=== PATIENT | male | born 1975 | race Caucasian/White ===

== ENCOUNTER 2017-09-14 19:50 | Emergency (ER) | payer MEDICAID ==
[~2017-09-14] VITALS: Ht 167.6 cm; Wt 97.0 kg
[~2017-09-14 19:50] MED LIST: ARIP30TA7 PO; BUSP5TAB3 PO; DIVA500T9 PO; LEVE500T PO
[2017-09-14] MEDS ORDERED: AMOX-580 PO (20:24)
[2017-09-14] MEDS ORDERED: METH4TAB3 PO (20:24)
[2017-09-14 20:38] VITALS: BP 140/86
== END 2017-09-14 20:35 | disposition home or self-care (01) ==
LOC: ER 19:50
DX: R22.0 Localized swelling, mass and lump, head (principal); F29 Unspecified psychosis not due to a substance or known physiological condition; Z87.891 Personal history of nicotine dependence
CPT/HCPCS: 99283

== ENCOUNTER 2018-04-28 12:05 | Inpatient (IN) | payer MEDICAID ==
[~2018-04-28] VITALS: Ht 162.6 cm; Wt 100.0 kg
[~2018-04-28 12:05] MED LIST changes: +METH4TAB3 PO
[2018-04-28] MEDS ORDERED: normal saline 1000ML IV soln IVB ONE ×2 (12:15→14:20)
[2018-04-28 12:52] LABS: BASOPHILS # (AUTO) 0.1 X10'3 (0-0.2); BASOPHILS % (AUTO) 0.8 % (0-1); EOSINOPHILS # (AUTO) 0.1 X10'3 (0-0.9); HEMATOCRIT 48.6 % (42.0-52.0); HEMOGLOBIN 16.5 g/dl (14.0-17.9); LYMPHOCYTES # (AUTO) 1.8 X10'3 (1.1-4.8); LYMPHOCYTES % (AUTO) 15.4 % (21-51); MEAN CORPUSCULAR HEMOGLOBIN 28.5 PG (27.0-31.0); MEAN CORPUSCULAR HGB CONC 34.1 % (33.0-36.5); MEAN CORPUSCULAR VOLUME 83.7 FL (78-98); MEAN PLATELET VOLUME 7.5 FL (7.4-10.4); MONOCYTES # (AUTO) 0.5 X10'3 (0-0.9); MONOCYTES % (AUTO) 4.2 % (2-12); NEUTROPHILS # (AUTO) 9.2 X10'3 (1.8-7.7); NEUTROPHILS % (AUTO) 78.6 % (42-75); PLATELET COUNT 272 X10'3 (140-440); RED BLOOD COUNT 5.81 X10'6 (4.70-6.10); RED CELL DISTRIBUTION WIDTH 14.5 % (11.5-14.5); WHITE BLOOD COUNT 11.8 X10'3 (4.5-11.0)
[2018-04-28 13:07] LABS: ALANINE AMINOTRANSFERASE 42 U/L (12-78); ALBUMIN 3.9 G/DL (3.4-5.0); ALKALINE PHOSPHATASE 53 IU/L (46-116); ANION GAP 13 (8-16); ASPARTATE AMINO TRANSFERASE 16 U/L (10-37); BILIRUBIN,TOTAL 0.3 MG/DL (0.1-1.0); BLOOD UREA NITROGEN 19 MG/DL (7-18); BUN/CREATININE RATIO 16.4 (5.4-32.0); CALCIUM 9.5 MG/DL (8.5-10.1); CHLORIDE 102 MMOL/L (99-107); CREATININE 1.16 MG/DL (0.60-1.10); GLUCOSE 119 MG/DL (70-104); POTASSIUM 4.5 MMOL/L (3.5-5.1); SODIUM 138 MMOL/L (135-145); TOTAL CARBON DIOXIDE 23.3 MMOL/L (24-32); TOTAL PROTEIN 7.9 G/DL (6.4-8.2); eGFR 69 ML/MIN
[2018-04-28 13:08] LABS: CREATINE KINASE 201 U/L (39-308)
[2018-04-28 13:09] LABS: VALPROATE 89 UG/ML (50-100)
[2018-04-28 13:40] LABS: CLARITY,URINE CLEAR (Clear); COLOR,URINE YELLOW (Yellow); GLUCOSE, URINE NEGATIVE (Neg); KETONES,URINE TRACE mg/dl (Neg); LEUKOCYTE ESTERASE ,URINE NEGATIVE (Neg); NITRITES, URINE NEGATIVE (Neg); OCCULT BLOOD,URINE SMALL (Neg); PROTEIN,URINE TRACE mg/dl (Neg); UROBILINOGEN,URINE 0.2 E.U/dL (0.2-1.0)
[2018-04-28 13:42] LABS: URINE AMPHETAMINE SCREEN NEGATIVE (Neg); URINE BARBITUATE SCREEN NEGATIVE (Neg); URINE BENZODIAZEPINES SCREEN NEGATIVE (Neg); URINE CANNABINOID SCREEN NEGATIVE (Neg); URINE COCAINE SCREEN NEGATIVE (Neg); URINE METHADONE SCREEN NEGATIVE (Neg); URINE OPIATE SCREEN NEGATIVE (Neg); URINE PHENCYCLIDINE SCREEN NEGATIVE (Neg)
[2018-04-28 13:45] LABS: UA COLLECTION TYPE STRAIGHT CATH
[2018-04-28 13:52] LABS: BACTERIA,URINE NONE SEEN /HPF (Neg); SQUAMOUS EPITHELIAL CELL,UR FEW /LPF (FEW); WBC,URINE 0-4 /HPF (0-4)
[2018-04-28 13:53] LABS: MUCUS STRANDS MODERATE /LPF (Neg)
[2018-04-28] MEDS ORDERED: LORazepam 2 mg/ml vial IV ONE (14:45)
[2018-04-28] MEDS ORDERED: acetaminophen 120MG suppository, rectal RC ONE (16:40)
[2018-04-28] MEDS ORDERED: acetaminophen 650mg rectal suppository RC ONE (16:55)
[2018-04-28] MEDS ORDERED: CefTRIAXone 2gm/D5W 50ml 50 ML IV ONE ×2 (16:55→17:30)
[2018-04-28] MEDS ORDERED: LIDOcaine 1% (10mg/ml) 2ml vial ONE (16:58)
[2018-04-28] MEDS ORDERED: levetiracetam inj 1,000 MG in normal saline 100ml IV soln 90 ML IV ONE (17:20)
[2018-04-28] MEDS ORDERED: gadopentetate dimeglumine 7.5 MMOL/15 ML syringe ONE (17:58)
[2018-04-28] MEDS ORDERED: acetaminophen 650mg rectal suppository RC PRN (18:10)
[2018-04-28] MEDS ORDERED: mag hydrox/Alum hydrox/simeth 30ml oral suspension PO PRN (18:10)
[2018-04-28] MEDS ORDERED: potassium Cl 20 mEq SR tablet PO PRN ×2 (18:10)
[2018-04-28] MEDS ORDERED: magnesium 1gm/100ml D5W IVPB 100 ML IV PRN (18:10)
[2018-04-28] MEDS ORDERED: magnesium hydroxide 30ml (MOM) UD suspension PO PRN (18:10)
[2018-04-28] MEDS ORDERED: potassium Cl 40MEQ/NS 500ml 500 ML IV PRN ×2 (18:10)
[2018-04-28] MEDS ORDERED: magnesium 4gm in 100ml NS 100 ML IV PRN (18:10)
[2018-04-28] MEDS ORDERED: magnesium Cl slow-release 64mg tablet PO PRN (18:10)
[2018-04-28] MEDS ORDERED: ondansetron/PF 4mg/2ml inj IV PRN (18:10)
[2018-04-28] MEDS: normal saline 1000ml 1,000 ML IV SCH (18:25)
[2018-04-28] MEDS ORDERED: FISH12002 PO (20:14)
[2018-04-28] MEDS ORDERED: LEVE500T PO ×2 (20:14)
[2018-04-28] MEDS ORDERED: ACET325C (20:14)
[2018-04-28] MEDS ORDERED: OLAN5TAB5 PO (20:14)
[2018-04-28] MEDS ORDERED: DIVA500T2 PO ×2 (20:14)
[2018-04-28] MEDS ORDERED: CARB15DR91 RIGHT EAR (20:14)
[2018-04-28 21:03] VITALS: BP 137/69
[2018-04-29 02:00] VITALS: BP 141/93
[2018-04-29] MEDS: normal saline 1000ml 1,000 ML IV SCH ×2 (03:32→20:14)
[2018-04-29 05:00] VITALS: BP 140/98
[2018-04-29 06:15] LABS: BASOPHILS % (AUTO) 0.4 % (0-1); EOSINOPHILS % (AUTO) 0.4 % (0-6); HEMATOCRIT 44.1 % (42.0-52.0); HEMOGLOBIN 15.3 g/dl (14.0-17.9); LYMPHOCYTES # (AUTO) 2.2 X10'3 (1.1-4.8); LYMPHOCYTES % (AUTO) 22.3 % (21-51); MEAN CORPUSCULAR HEMOGLOBIN 28.7 PG (27.0-31.0); MEAN CORPUSCULAR HGB CONC 34.8 % (33.0-36.5); MEAN CORPUSCULAR VOLUME 82.6 FL (78-98); MEAN PLATELET VOLUME 7.2 FL (7.4-10.4); MONOCYTES % (AUTO) 9.9 % (2-12); NEUTROPHILS # (AUTO) 6.6 X10'3 (1.8-7.7); PLATELET COUNT 231 X10'3 (140-440); RED BLOOD COUNT 5.34 X10'6 (4.70-6.10); RED CELL DISTRIBUTION WIDTH 14.5 % (11.5-14.5); WHITE BLOOD COUNT 9.9 X10'3 (4.5-11.0)
[2018-04-29 06:24] LABS: ALBUMIN 3.4 G/DL (3.4-5.0); ANION GAP 10 (8-16); BLOOD UREA NITROGEN 14 MG/DL (7-18); BUN/CREATININE RATIO 13.7 (5.4-32.0); CALCIUM 8.3 MG/DL (8.5-10.1); CHLORIDE 102 MMOL/L (99-107); CREATININE 1.02 MG/DL (0.60-1.10); GLUCOSE 108 MG/DL (70-104); MAGNESIUM 1.7 MG/DL (1.5-2.4); POTASSIUM 3.9 MMOL/L (3.5-5.1); SODIUM 137 MMOL/L (135-145); TOTAL CARBON DIOXIDE 25.2 MMOL/L (24-32); eGFR 80 ML/MIN
[2018-04-29] MEDS: K and/or MAG REPLACEMENT MC SCH (06:42)
[2018-04-29] MEDS: CefTRIAXone 2gm/D5W 50ml 50 ML IV SCH (09:22)
[2018-04-29] MEDS: enoxaparin 40mg/0.4ml syringe SQ SCH (09:23)
[2018-04-29 10:00] VITALS: BP 129/79
[2018-04-29] MEDS ORDERED: acetaminophen 325mg tablet PO PRN (10:25)
[2018-04-29] MEDS: azithromycin 250mg tablet PO SCH (10:32)
[2018-04-29 14:00] VITALS: BP 126/88
[2018-04-29 18:00] VITALS: BP 130/79
[2018-04-29] MEDS: ipratropium/albuterol 3ml nebule NEB SCH ×2 (19:10→23:00)
[2018-04-29] MEDS ORDERED: divalproex sodium 500mg tablet.DR PO SCH (21:00)
[2018-04-29] MEDS ORDERED: levetiracetam 250mg tablet PO SCH (21:00)
[2018-04-29] MEDS ORDERED: OLANZapine 5mg rapidly disint. tablet PO SCH (21:00)
[2018-04-29] MEDS ORDERED: carbamide peroxide 15ml bottle RIGHT EAR SCH (21:00)
[2018-04-29] MEDS ORDERED: LEVETIRACETAM 1000 MG PO SCH (21:00)
[2018-04-29 22:00] VITALS: BP 128/86
[2018-04-30] MEDS: ipratropium/albuterol 3ml nebule NEB SCH ×4 (04:39→15:19)
[2018-04-30 05:00] VITALS: BP 124/85
[2018-04-30 05:33] LABS: BASOPHILS # (AUTO) 0.2 X10'3 (0-0.2); BASOPHILS % (AUTO) 1.9 % (0-1); EOSINOPHILS # (AUTO) 0.1 X10'3 (0-0.9); EOSINOPHILS % (AUTO) 1.4 % (0-6); HEMATOCRIT 44.9 % (42.0-52.0); HEMOGLOBIN 15.5 g/dl (14.0-17.9); LYMPHOCYTES # (AUTO) 2.2 X10'3 (1.1-4.8); LYMPHOCYTES % (AUTO) 25.1 % (21-51); MEAN CORPUSCULAR HEMOGLOBIN 28.5 PG (27.0-31.0); MEAN CORPUSCULAR HGB CONC 34.5 % (33.0-36.5); MEAN CORPUSCULAR VOLUME 82.6 FL (78-98); MEAN PLATELET VOLUME 6.9 FL (7.4-10.4); MONOCYTES # (AUTO) 0.6 X10'3 (0-0.9); MONOCYTES % (AUTO) 6.8 % (2-12); NEUTROPHILS # (AUTO) 5.6 X10'3 (1.8-7.7); NEUTROPHILS % (AUTO) 64.8 % (42-75); PLATELET COUNT 216 X10'3 (140-440); RED BLOOD COUNT 5.44 X10'6 (4.70-6.10); RED CELL DISTRIBUTION WIDTH 14.3 % (11.5-14.5); WHITE BLOOD COUNT 8.6 X10'3 (4.5-11.0)
[2018-04-30 05:44] LABS: ALBUMIN 3.4 G/DL (3.4-5.0); ANION GAP 9 (8-16); BLOOD UREA NITROGEN 13 MG/DL (7-18); BUN/CREATININE RATIO 14.8 (5.4-32.0); CALCIUM 8.7 MG/DL (8.5-10.1); CHLORIDE 104 MMOL/L (99-107); CREATININE 0.88 MG/DL (0.60-1.10); GLUCOSE 113 MG/DL (70-104); MAGNESIUM 1.9 MG/DL (1.5-2.4); SODIUM 140 MMOL/L (135-145); TOTAL CARBON DIOXIDE 26.7 MMOL/L (24-32); eGFR > 90 ML/MIN
[2018-04-30] MEDS: K and/or MAG REPLACEMENT MC SCH (07:41)
[2018-04-30] MEDS ORDERED: levetiracetam 250mg tablet PO SCH (08:00)
[2018-04-30] MEDS ORDERED: non-formulary drug (Levetiracetam 500 MG) PO SCH (08:00)
[2018-04-30] MEDS ORDERED: divalproex sodium 500mg tablet.DR PO SCH (08:00)
[2018-04-30] MEDS ORDERED: non-formulary drug (Fish Oil/Borage/Flax/Om3,6,9#1 (Omega 3-6-9 1,200 mg Softgel) 1 CAP) PO SCH (08:00)
[2018-04-30] MEDS: CefTRIAXone 2gm/D5W 50ml 50 ML IV SCH (09:12)
[2018-04-30] MEDS: azithromycin 250mg tablet PO SCH (09:13)
[2018-04-30] MEDS: enoxaparin 40mg/0.4ml syringe SQ SCH (09:13)
[2018-04-30 10:00] VITALS: BP 137/84
[2018-04-30] MEDS ORDERED: [UNRECOGNIZED DRUG - REMARK] PO NR (10:00)
[2018-04-30] MEDS: normal saline 1000ml 1,000 ML IV SCH (10:09)
[2018-04-30] MEDS ORDERED: CEFD300C3 PO (13:37)
[2018-04-30] MEDS ORDERED: AZI25OT PO (13:37)
[2018-04-30] MEDS ORDERED: ALBU8.5H8 IH (13:37)
== END 2018-04-30 16:19 | disposition home health service (06) | DRG 137 ==
LOC: ER 12:05 → ED HOLD 18:09 → EDBEDREQ 19:03 → CMPBEDREQ 19:41 → ORTHO 4S 19:45
PROVIDERS: ADMIT Internal Medicine; ATTEND Family Medicine
DX: J69.0 Pneumonitis due to inhalation of food and vomit (principal); F41.9 Anxiety disorder, unspecified; F81.9 Developmental disorder of scholastic skills, unspecified; G40.901 Epilepsy, unspecified, not intractable, with status epilepticus; Z85.841 Personal history of malignant neoplasm of brain; Z79.899 Other long term (current) drug therapy
CPT/HCPCS: 36415; 70450; 70551; 71045; 71046; 80048; 80053; 80164; 80177; 80305; 81001; 82550; 83605; 83735; 85025; 87040; 87070; 92616; 93005; 94640; 94760; 96361; 96365; 96375; 97116; 97162; 97530; 99291; A4353; A9579; J0696; J1650; J1953; J2060; J3490; J7030

== ENCOUNTER 2018-07-03 08:12 | Inpatient (IN) | payer MEDICAID ==
[~2018-07-03] VITALS: Ht 177.8 cm; Wt 101.0 kg
[~2018-07-03 08:12] MED LIST changes: +ACET325C PO; +ALBU8.5H8 IH; -ARIP30TA7 PO; +AZI25OT PO; -BUSP5TAB3 PO; +CARB15DR91 RIGHT EAR; +DIVA500T2 PO; -DIVA500T9 PO; +FISH12002 PO; -METH4TAB3 PO; +OLAN5TAB5 PO
[2018-07-03] MEDS ORDERED: normal saline 1000ML IV soln IVB ONE ×2 (08:15→09:50)
[2018-07-03] MEDS ORDERED: levetiracetam inj 1,000 MG in normal saline 100ml IV soln 90 ML IV STA (08:17)
[2018-07-03] MEDS ORDERED: LORazepam 2 mg/ml vial IV ONE (08:25)
[2018-07-03] MEDS ORDERED: piperacillin/tazo 3.375gm/50ml 50 ML IV ONE (08:30)
[2018-07-03] MEDS ORDERED: acetaminophen 650mg rectal suppository RC ONE (08:55)
[2018-07-03 08:56] LABS: BASOPHILS # (AUTO) 0.1 X10'3 (0-0.2); BASOPHILS % (AUTO) 0.4 % (0-1); EOSINOPHILS % (AUTO) 0.2 % (0-6); HEMATOCRIT 48.3 % (42.0-52.0); HEMOGLOBIN 16.4 g/dl (14.0-17.9); LYMPHOCYTES # (AUTO) 1.2 X10'3 (1.1-4.8); LYMPHOCYTES % (AUTO) 6.6 % (21-51); MEAN CORPUSCULAR HEMOGLOBIN 28.3 PG (27.0-31.0); MEAN CORPUSCULAR VOLUME 83.2 FL (78-98); MEAN PLATELET VOLUME 7.6 FL (7.4-10.4); MONOCYTES # (AUTO) 0.7 X10'3 (0-0.9); MONOCYTES % (AUTO) 3.9 % (2-12); NEUTROPHILS # (AUTO) 16.6 X10'3 (1.8-7.7); NEUTROPHILS % (AUTO) 88.9 % (42-75); PLATELET COUNT 294 X10'3 (140-440); RED BLOOD COUNT 5.81 X10'6 (4.70-6.10); RED CELL DISTRIBUTION WIDTH 14.7 % (11.5-14.5); WHITE BLOOD COUNT 18.7 X10'3 (4.5-11.0)
[2018-07-03 09:20] LABS: INR 1.2 INR
[2018-07-03 09:38] LABS: CLARITY,URINE SLIGHTLY CLOUDY (Clear); COLOR,URINE AMBER (Yellow); GLUCOSE, URINE NEGATIVE (Neg); KETONES,URINE TRACE mg/dl (Neg); LEUKOCYTE ESTERASE ,URINE NEGATIVE (Neg); OCCULT BLOOD,URINE LARGE (Neg); PROTEIN,URINE 100 mg/dl (Neg); UROBILINOGEN,URINE 0.2 E.U/dL (0.2-1.0)
[2018-07-03 09:45] LABS: UA COLLECTION TYPE FOLEY CATH
[2018-07-03 09:46] LABS: ALANINE AMINOTRANSFERASE 82 U/L (12-78); ALBUMIN 3.7 G/DL (3.4-5.0); ALBUMIN/GLOBULIN RATIO 0.9 (1.1-1.5); ALKALINE PHOSPHATASE 62 IU/L (46-116); ANION GAP 24 (8-16); ASPARTATE AMINO TRANSFERASE 272 U/L (10-37); BILIRUBIN,TOTAL 0.4 MG/DL (0.1-1.0); BLOOD UREA NITROGEN 22 MG/DL (7-18); BUN/CREATININE RATIO 11.3 (5.4-32.0); CALCIUM 8.9 MG/DL (8.5-10.1); CHLORIDE 98 MMOL/L (99-107); CREATININE 1.95 MG/DL (0.60-1.10); GLUCOSE 179 MG/DL (70-104); MAGNESIUM 2.3 MG/DL (1.5-2.4); POTASSIUM 3.9 MMOL/L (3.5-5.1); SODIUM 137 MMOL/L (135-145); TOTAL PROTEIN 7.6 G/DL (6.4-8.2); VALPROATE 62 UG/ML (50-100); eGFR 38 ML/MIN
[2018-07-03 09:47] LABS: NITRITES, URINE NEGATIVE (Neg)
[2018-07-03 09:48] LABS: MUCUS STRANDS MODERATE /LPF (Neg)
[2018-07-03 09:50] LABS: COARSE GRANULAR CAST 0-3 /LPF (NEGATIVE)
[2018-07-03 09:51] LABS: AMORPHOUS URATES 1+; RBC,URINE 0-2 /HPF (0-2); SQUAMOUS EPITHELIAL CELL,UR FEW /LPF (FEW)
[2018-07-03 09:52] LABS: BACTERIA,URINE FEW /HPF (Neg)
[2018-07-03] MEDS ORDERED: normal saline 1000ml 1,000 ML IVB ONE (09:54)
[2018-07-03] MEDS ORDERED: ketorolac trometh. 30mg/ml inj. IV ONE (09:55)
[2018-07-03] MEDS ORDERED: potassium Cl 20 mEq SR tablet PO PRN ×2 (10:50)
[2018-07-03] MEDS ORDERED: ondansetron/PF 4mg/2ml inj IV PRN (10:50)
[2018-07-03] MEDS ORDERED: acetaminophen 325mg tablet PO PRN ×2 (10:50)
[2018-07-03] MEDS ORDERED: potassium Cl 40MEQ/NS 500ml 500 ML IV PRN ×2 (10:50)
[2018-07-03] MEDS ORDERED: mag hydrox/Alum hydrox/simeth 30ml oral suspension PO PRN (10:50)
[2018-07-03] MEDS ORDERED: docusate sod 100mg capsule PO PRN (10:50)
[2018-07-03] MEDS ORDERED: magnesium 1gm/100ml D5W IVPB 100 ML IV PRN (10:50)
[2018-07-03] MEDS ORDERED: magnesium 4gm in 100ml NS 100 ML IV PRN (10:50)
[2018-07-03] MEDS ORDERED: magnesium Cl slow-release 64mg tablet PO PRN (10:50)
[2018-07-03 10:56] LABS: ABG BASE EXCESS -6.8 mmol/L (-2.0-3.0); ABG HCO3 15.4 mmol/L (22.0-26.0); ABG OXYGEN SATURATION 97.7 % (95-98); ABG PH (T) 7.425 (7.350-7.450); ABG PO2 (T) 108.6 mmHg (83-108); ALLEN'S TEST Positive; FCOHb 0.4 % (0.5-1.5); FLOW 2 L/min; FMetHb 0.3 % (0.3-1.12); TOTAL HEMOGLOBIN 15.5 G/dl (14.0-18.0)
[2018-07-03] MEDS ORDERED: LORazepam 2 mg/ml vial IV PRN (11:00)
[2018-07-03] MEDS: acetaminophen 650mg rectal suppository RC PRN ×2 (11:42→17:25)
[2018-07-03] MEDS: normal saline 1000ml 1,000 ML IV SCH ×2 (11:44→22:23)
[2018-07-03] MEDS: CefTRIAXone 2gm/D5W 50ml 50 ML IV SCH (13:07)
[2018-07-03 13:35] VITALS: BP 150/93
[2018-07-03] MEDS: azithromycin/NS 500mg/250ml 250 ML IV SCH (14:39)
[2018-07-03 14:45] VITALS: BP_SYST 150; BP_SYST 157; BP_DIAS 89; BP_DIAS 93
[2018-07-03 16:20] VITALS: BP 140/83
[2018-07-03] MEDS ORDERED: CETI10CA PO (16:57)
[2018-07-03 17:00] VITALS: BP 139/87
[2018-07-03 22:00] VITALS: BP 125/80
[2018-07-04 02:00] VITALS: BP 113/66
[2018-07-04 06:00] VITALS: BP 132/66
[2018-07-04 06:44] LABS: BASOPHILS % (AUTO) 0.5 % (0-1); EOSINOPHILS # (AUTO) 0.1 X10'3 (0-0.9); EOSINOPHILS % (AUTO) 1.2 % (0-6); HEMATOCRIT 41.1 % (42.0-52.0); HEMOGLOBIN 13.9 g/dl (14.0-17.9); LYMPHOCYTES # (AUTO) 2.5 X10'3 (1.1-4.8); LYMPHOCYTES % (AUTO) 23.8 % (21-51); MEAN CORPUSCULAR HEMOGLOBIN 28.4 PG (27.0-31.0); MEAN CORPUSCULAR HGB CONC 33.9 % (33.0-36.5); MEAN CORPUSCULAR VOLUME 83.9 FL (78-98); MEAN PLATELET VOLUME 7.3 FL (7.4-10.4); MONOCYTES # (AUTO) 1.2 X10'3 (0-0.9); NEUTROPHILS # (AUTO) 6.7 X10'3 (1.8-7.7); NEUTROPHILS % (AUTO) 63.5 % (42-75); PLATELET COUNT 194 X10'3 (140-440); RED CELL DISTRIBUTION WIDTH 14.5 % (11.5-14.5); WHITE BLOOD COUNT 10.5 X10'3 (4.5-11.0)
[2018-07-04 07:04] LABS: ALANINE AMINOTRANSFERASE 205 U/L (12-78); ALBUMIN 2.6 G/DL (3.4-5.0); ALBUMIN/GLOBULIN RATIO 0.9 (1.1-1.5); ALKALINE PHOSPHATASE 37 IU/L (46-116); ANION GAP 9 (8-16); ASPARTATE AMINO TRANSFERASE 960 U/L (10-37); BILIRUBIN,TOTAL 0.4 MG/DL (0.1-1.0); BLOOD UREA NITROGEN 18 MG/DL (7-18); BUN/CREATININE RATIO 15.8 (5.4-32.0); CALCIUM 7.9 MG/DL (8.5-10.1); CHLORIDE 107 MMOL/L (99-107); CREATININE 1.14 MG/DL (0.60-1.10); GLUCOSE 95 MG/DL (70-104); MAGNESIUM 2.2 MG/DL (1.5-2.4); POTASSIUM 3.6 MMOL/L (3.5-5.1); SODIUM 140 MMOL/L (135-145); TOTAL CARBON DIOXIDE 24.3 MMOL/L (24-32); TOTAL PROTEIN 5.6 G/DL (6.4-8.2); eGFR 70 ML/MIN
[2018-07-04] MEDS ORDERED: albuterol 2.5 MG/3 ML nebule NEB PRN (07:40)
[2018-07-04] MEDS: normal saline 1000ml 1,000 ML IV SCH ×2 (07:54→17:37)
[2018-07-04] MEDS: CefTRIAXone 2gm/D5W 50ml 50 ML IV SCH (07:55)
[2018-07-04] MEDS: levetiracetam 250mg tablet PO SCH ×2 (07:56→20:24)
[2018-07-04] MEDS: enoxaparin 40mg/0.4ml syringe SQ SCH (07:57)
[2018-07-04] MEDS: K and/or MAG REPLACEMENT MC SCH (08:00)
[2018-07-04] MEDS ORDERED: CefTRIAXone 2gm/D5W 50ml 50 ML IV SCH (08:00)
[2018-07-04] MEDS ORDERED: azithromycin/NS 500mg/250ml 250 ML IV SCH (08:00)
[2018-07-04] MEDS: azithromycin/NS 500mg/250ml 250 ML IV SCH (09:33)
[2018-07-04] MEDS: OMEGA-3/DHA/EPA/FISH OIL 1 EACH CAPSULE.DR PO SCH (09:34)
[2018-07-04 10:00] VITALS: BP 133/66
[2018-07-04] MEDS: divalproex sodium 500mg tablet.DR PO SCH ×2 (10:00→20:23)
[2018-07-04 12:54] LABS: CREATINE KINASE > 100000 U/L (39-308)
[2018-07-04 17:00] VITALS: BP 133/80
[2018-07-04] MEDS: lactobacillus rhamnosus 10,000 MMU CELLS/CAPSULE PO SCH (20:23)
[2018-07-04] MEDS: OLANZapine 5mg rapidly disint. tablet PO SCH (20:24)
[2018-07-04] MEDS: carbamide peroxide 15ml bottle RIGHT EAR SCH (20:31)
[2018-07-04 22:00] VITALS: BP 130/80
[2018-07-05] MEDS: normal saline 1000ml 1,000 ML IV SCH ×3 (02:55→23:42)
[2018-07-05 06:00] VITALS: BP 130/70
[2018-07-05] MEDS: K and/or MAG REPLACEMENT MC SCH (07:09)
[2018-07-05 08:20] LABS: BASOPHILS % (AUTO) 0.5 % (0-1); EOSINOPHILS # (AUTO) 0.1 X10'3 (0-0.9); EOSINOPHILS % (AUTO) 1.8 % (0-6); HEMATOCRIT 40.8 % (42.0-52.0); HEMOGLOBIN 13.9 g/dl (14.0-17.9); LYMPHOCYTES # (AUTO) 1.7 X10'3 (1.1-4.8); LYMPHOCYTES % (AUTO) 21.5 % (21-51); MEAN CORPUSCULAR HEMOGLOBIN 28.4 PG (27.0-31.0); MEAN CORPUSCULAR VOLUME 83.5 FL (78-98); MEAN PLATELET VOLUME 7.7 FL (7.4-10.4); MONOCYTES # (AUTO) 0.6 X10'3 (0-0.9); MONOCYTES % (AUTO) 7.3 % (2-12); NEUTROPHILS # (AUTO) 5.5 X10'3 (1.8-7.7); NEUTROPHILS % (AUTO) 68.9 % (42-75); PLATELET COUNT 200 X10'3 (140-440); RED BLOOD COUNT 4.89 X10'6 (4.70-6.10); RED CELL DISTRIBUTION WIDTH 14.4 % (11.5-14.5)
[2018-07-05] MEDS: lactobacillus rhamnosus 10,000 MMU CELLS/CAPSULE PO SCH ×2 (08:25→20:28)
[2018-07-05] MEDS: azithromycin 250mg tablet PO SCH (08:25)
[2018-07-05] MEDS: levetiracetam 250mg tablet PO SCH ×2 (08:26→20:29)
[2018-07-05] MEDS: OMEGA-3/DHA/EPA/FISH OIL 1 EACH CAPSULE.DR PO SCH (08:26)
[2018-07-05] MEDS: divalproex sodium 500mg tablet.DR PO SCH ×2 (08:27→20:29)
[2018-07-05] MEDS: enoxaparin 40mg/0.4ml syringe SQ SCH (08:28)
[2018-07-05 08:47] LABS: ALANINE AMINOTRANSFERASE 289 U/L (12-78); ALBUMIN 2.5 G/DL (3.4-5.0); ALBUMIN/GLOBULIN RATIO 0.8 (1.1-1.5); ALKALINE PHOSPHATASE 38 IU/L (46-116); ANION GAP 9 (8-16); BILIRUBIN,TOTAL 0.3 MG/DL (0.1-1.0); BLOOD UREA NITROGEN 11 MG/DL (7-18); BUN/CREATININE RATIO 12.4 (5.4-32.0); CALCIUM 8.3 MG/DL (8.5-10.1); CHLORIDE 108 MMOL/L (99-107); CREATININE 0.89 MG/DL (0.60-1.10); GLUCOSE 79 MG/DL (70-104); MAGNESIUM 2.1 MG/DL (1.5-2.4); POTASSIUM 3.7 MMOL/L (3.5-5.1); SODIUM 144 MMOL/L (135-145); TOTAL PROTEIN 5.6 G/DL (6.4-8.2); eGFR > 90 ML/MIN
[2018-07-05 08:49] LABS: ASPARTATE AMINO TRANSFERASE 1055 U/L (10-37)
[2018-07-05 09:19] LABS: CREATINE KINASE > 100000 U/L (39-308)
[2018-07-05 10:13] VITALS: BP 140/84
[2018-07-05 18:00] VITALS: BP 152/97
[2018-07-05] MEDS: OLANZapine 5mg rapidly disint. tablet PO SCH (20:30)
[2018-07-05] MEDS: carbamide peroxide 15ml bottle RIGHT EAR SCH (20:31)
[2018-07-05 22:00] VITALS: BP 144/84
[2018-07-06 06:00] VITALS: BP 142/83
[2018-07-06 07:05] LABS: BASOPHILS % (AUTO) 0.3 % (0-1); EOSINOPHILS # (AUTO) 0.2 X10'3 (0-0.9); EOSINOPHILS % (AUTO) 1.9 % (0-6); HEMATOCRIT 41.7 % (42.0-52.0); HEMOGLOBIN 14.1 g/dl (14.0-17.9); LYMPHOCYTES # (AUTO) 1.9 X10'3 (1.1-4.8); LYMPHOCYTES % (AUTO) 24.5 % (21-51); MEAN CORPUSCULAR HEMOGLOBIN 28.5 PG (27.0-31.0); MEAN CORPUSCULAR HGB CONC 33.9 % (33.0-36.5); MEAN PLATELET VOLUME 7.6 FL (7.4-10.4); MONOCYTES # (AUTO) 0.5 X10'3 (0-0.9); MONOCYTES % (AUTO) 6.1 % (2-12); NEUTROPHILS # (AUTO) 5.2 X10'3 (1.8-7.7); NEUTROPHILS % (AUTO) 67.2 % (42-75); PLATELET COUNT 214 X10'3 (140-440); RED BLOOD COUNT 4.96 X10'6 (4.70-6.10); RED CELL DISTRIBUTION WIDTH 14.3 % (11.5-14.5); WHITE BLOOD COUNT 7.8 X10'3 (4.5-11.0)
[2018-07-06 07:36] LABS: ALANINE AMINOTRANSFERASE 267 U/L (12-78); ALBUMIN 2.3 G/DL (3.4-5.0); ALBUMIN/GLOBULIN RATIO 0.8 (1.1-1.5); ALKALINE PHOSPHATASE 45 IU/L (46-116); ANION GAP 7 (8-16); ASPARTATE AMINO TRANSFERASE 762 U/L (10-37); BILIRUBIN,TOTAL 0.3 MG/DL (0.1-1.0); BLOOD UREA NITROGEN 11 MG/DL (7-18); BUN/CREATININE RATIO 13.3 (5.4-32.0); CALCIUM 7.8 MG/DL (8.5-10.1); CHLORIDE 107 MMOL/L (99-107); CREATININE 0.83 MG/DL (0.60-1.10); GLUCOSE 86 MG/DL (70-104); MAGNESIUM 1.8 MG/DL (1.5-2.4); POTASSIUM 3.6 MMOL/L (3.5-5.1); SODIUM 143 MMOL/L (135-145); TOTAL CARBON DIOXIDE 28.9 MMOL/L (24-32); TOTAL PROTEIN 5.3 G/DL (6.4-8.2); eGFR > 90 ML/MIN
[2018-07-06 07:53] LABS: CREATINE KINASE 74145 U/L (39-308)
[2018-07-06] MEDS: K and/or MAG REPLACEMENT MC SCH (08:00)
[2018-07-06] MEDS: lactobacillus rhamnosus 10,000 MMU CELLS/CAPSULE PO SCH (08:16)
[2018-07-06] MEDS: OMEGA-3/DHA/EPA/FISH OIL 1 EACH CAPSULE.DR PO SCH (08:16)
[2018-07-06] MEDS: divalproex sodium 500mg tablet.DR PO SCH (08:16)
[2018-07-06] MEDS: levetiracetam 250mg tablet PO SCH (08:17)
[2018-07-06] MEDS: azithromycin 250mg tablet PO SCH (08:17)
[2018-07-06] MEDS: enoxaparin 40mg/0.4ml syringe SQ SCH (08:22)
[2018-07-06 10:00] VITALS: BP 136/91
[2018-07-06] MEDS: normal saline 1000ml 1,000 ML IV SCH (10:49)
== END 2018-07-06 14:20 | disposition home or self-care (01) | DRG 720 ==
LOC: ER 08:12 → ED HOLD 10:46 → ORTHO 4S 13:15
PROVIDERS: ADMIT Internal Medicine; ATTEND Internal Medicine
DX: A41.9 Sepsis, unspecified organism (principal); J69.0 Pneumonitis due to inhalation of food and vomit; G93.40 Encephalopathy, unspecified; N17.9 Acute kidney failure, unspecified; N18.3 Chronic kidney disease, stage 3 (moderate); E87.2 Acidosis; E86.0 Dehydration; G40.901 Epilepsy, unspecified, not intractable, with status epilepticus; M62.82 Rhabdomyolysis; F41.9 Anxiety disorder, unspecified; R74.0 Nonspecific elevation of levels of transaminase and lactic acid dehydrogenase [LDH]; Z79.899 Other long term (current) drug therapy
CPT/HCPCS: 36415; 36600; 71045; 80053; 80164; 81001; 82550; 82803; 83605; 83735; 84145; 85018; 85025; 85610; 87040; 87070; 87088; 92616; 93005; 96365; 96368; 96375; 97110; 97116; 97162; 97530; 99291; G0378; J0456; J0696; J1650; J1885; J1953; J2060; J2543; J7030

== ENCOUNTER 2019-01-13 18:56 | Emergency (ER) | payer MEDICAID ==
[~2019-01-13] VITALS: Ht 274.3 cm; Wt 94.0 kg
[~2019-01-13 18:56] MED LIST changes: -ACET325C PO; +ACET325C3 PO; -AZI25OT PO; +CETI10CA PO
--- NOTE | 2019-01-13 19:19 | NUR ---
[facility] AND INITIATED STROKE LEVEL 1
[2019-01-13 19:50] LABS: BASOPHILS # (AUTO) 0.1 X10'3 (0-0.2); BASOPHILS % (AUTO) 1.1 % (0-1); EOSINOPHILS # (AUTO) 0.1 X10'3 (0-0.9); EOSINOPHILS % (AUTO) 0.7 % (0-6); HEMATOCRIT 47.9 % (42.0-52.0); HEMOGLOBIN 16.8 g/dl (14.0-17.9); LYMPHOCYTES # (AUTO) 1.7 X10'3 (1.1-4.8); LYMPHOCYTES % (AUTO) 14.2 % (21-51); MEAN CORPUSCULAR HEMOGLOBIN 28.8 PG (27.0-31.0); MEAN CORPUSCULAR VOLUME 82.2 FL (78-98); MEAN PLATELET VOLUME 7.5 FL (7.4-10.4); MONOCYTES # (AUTO) 1.1 X10'3 (0-0.9); MONOCYTES % (AUTO) 9.7 % (2-12); NEUTROPHILS # (AUTO) 8.7 X10'3 (1.8-7.7); NEUTROPHILS % (AUTO) 74.3 % (42-75); PLATELET COUNT 261 X10'3 (140-440); RED BLOOD COUNT 5.83 X10'6 (4.70-6.10); RED CELL DISTRIBUTION WIDTH 14.5 % (11.5-14.5); WHITE BLOOD COUNT 11.7 X10'3 (4.5-11.0)
[2019-01-13 20:03] LABS: ALANINE AMINOTRANSFERASE 46 U/L (12-78); ALKALINE PHOSPHATASE 70 IU/L (46-116); ANION GAP 13 (8-16); ASPARTATE AMINO TRANSFERASE 29 U/L (10-37); BILIRUBIN,TOTAL 0.3 MG/DL (0.1-1.0); BLOOD UREA NITROGEN 15 MG/DL (7-18); CALCIUM 9.5 MG/DL (8.5-10.1); CHLORIDE 101 MMOL/L (99-107); GLUCOSE 121 MG/DL (70-104); POTASSIUM 4.2 MMOL/L (3.5-5.1); SODIUM 135 MMOL/L (135-145); TOTAL CARBON DIOXIDE 21.4 MMOL/L (24-32); TOTAL PROTEIN 8.1 G/DL (6.4-8.2); eGFR 82 ML/MIN
[2019-01-13 20:04] LABS: INR 1.1 INR
[2019-01-13] MEDS: levetiracetam inj 1,000 MG in normal saline 100ml IV soln 90 ML IV ONE (20:17)
[2019-01-13] MEDS: normal saline 1000ML IV soln IV ONE (20:17)
--- NOTE | 2019-01-13 20:43 | NUR ---
I DID NOTICE THAT HE DID DROOL WHEN NOT SWALLOWING AND WITH SWALLOWING, DOES NOT SEEMS TO MATTER. BUT NO SIGNS OF ASPIRATION NOTED. I INFROMED THE ER NURSE OF MY FINDINGS.
[2019-01-13] MEDS ORDERED: LEVE10002 PO (20:59)
[2019-01-13 21:10] LABS: CLARITY,URINE SLIGHTLY CLOUDY (Clear); COLOR,URINE YELLOW (Yellow); GLUCOSE, URINE NEGATIVE (Neg); KETONES,URINE TRACE mg/dl (Neg); LEUKOCYTE ESTERASE ,URINE NEGATIVE (Neg); NITRITES, URINE NEGATIVE (Neg); OCCULT BLOOD,URINE TRACE-LYSED (Neg); PROTEIN,URINE TRACE mg/dl (Neg)
[2019-01-13 21:16] LABS: UA COLLECTION TYPE STRAIGHT CATH
[2019-01-13 21:17] LABS: BACTERIA,URINE NONE SEEN /HPF (Neg); RBC,URINE 0-2 /HPF (0-2); WBC,URINE 0-4 /HPF (0-4)
[2019-01-13 21:18] LABS: MUCUS STRANDS MANY /LPF (Neg); SQUAMOUS EPITHELIAL CELL,UR NONE SEEN /LPF (FEW)
[2019-01-13 21:29] VITALS: BP 146/78
== END 2019-01-13 21:30 | disposition home or self-care (01) ==
LOC: ER 18:56
DX: C71.9 Malignant neoplasm of brain, unspecified (principal); Z98.890 Other specified postprocedural states; G40.909 Epilepsy, unspecified, not intractable, without status epilepticus; Z79.899 Other long term (current) drug therapy
CPT/HCPCS: 36415; 70450; 71045; 80053; 80164; 81001; 82948; 83605; 84145; 85025; 85610; 87040; 93005; 96365; 99284; J1953; J7030

== ENCOUNTER 2019-05-24 16:01 | Emergency (ER) | payer MEDICAID ==
[~2019-05-24] VITALS: Ht 180.3 cm; Wt 98.0 kg
[2019-05-24] MEDS ORDERED: TETanus/Pertussis (Acell)/Diphther VAC/PF (Tdap-Adult) 0.5ml syringe IM ONE (16:35)
[2019-05-24] MEDS ORDERED: CEPH250T PO (17:29)
[2019-05-24] MEDS ORDERED: cephalexin 500mg capsule PO ONE (17:30)
[2019-05-24 17:58] LABS: BASOPHILS % (AUTO) 0.3 % (0-1); EOSINOPHILS % (AUTO) 0.2 % (0-6); HEMATOCRIT 45.7 % (42.0-52.0); HEMOGLOBIN 15.9 g/dl (14.0-17.9); LYMPHOCYTES # (AUTO) 1.9 X10'3 (1.1-4.8); LYMPHOCYTES % (AUTO) 12.9 % (21-51); MEAN CORPUSCULAR HGB CONC 34.8 g/dL (33.0-36.5); MEAN CORPUSCULAR VOLUME 83.3 FL (78-98); MEAN PLATELET VOLUME 7.4 FL (7.4-10.4); MONOCYTES # (AUTO) 1.2 X10'3 (0-0.9); NEUTROPHILS # (AUTO) 11.5 X10'3 (1.8-7.7); NEUTROPHILS % (AUTO) 78.6 % (42-75); PLATELET COUNT 250 X10'3 (140-440); RED BLOOD COUNT 5.49 X10'6 (4.70-6.10); RED CELL DISTRIBUTION WIDTH 14.8 % (11.5-14.5); WHITE BLOOD COUNT 14.6 X10'3 (4.5-11.0)
[2019-05-24 18:22] VITALS: BP 141/94
[2019-05-24 18:24] LABS: ALANINE AMINOTRANSFERASE 48 U/L (12-78); ALBUMIN 3.7 G/DL (3.4-5.0); ALKALINE PHOSPHATASE 65 IU/L (46-116); BILIRUBIN,TOTAL 0.2 MG/DL (0.1-1.0); BLOOD UREA NITROGEN 19 MG/DL (7-18); BUN/CREATININE RATIO 17.8 (5.4-32.0); CALCIUM 8.9 MG/DL (8.5-10.1); CHLORIDE 105 MMOL/L (99-107); CREATININE 1.07 MG/DL (0.60-1.10); TOTAL CARBON DIOXIDE 25.2 MMOL/L (24-32); TOTAL PROTEIN 7.5 G/DL (6.4-8.2); VALPROATE 73 UG/ML (50-100); eGFR 75 ML/MIN
[2019-05-24 18:34] LABS: ANION GAP 16 (8-16); GLUCOSE 165 MG/DL (70-104); POTASSIUM 3.9 MMOL/L (3.5-5.1); SODIUM 146 MMOL/L (135-145)
[2019-05-24 18:38] LABS: ASPARTATE AMINO TRANSFERASE 32 U/L (10-37)
[2019-05-24] MEDS ORDERED: divalproex sodium 500mg tablet.DR PO SCH (18:40)
[2019-05-24] MEDS ORDERED: divalproex sodium 500mg tablet.DR PO ONE (18:40)
[2019-05-24] MEDS ORDERED: LORazepam 1 MG tablet PO ONE (18:40)
[2019-05-24 19:21] LABS: CLARITY,URINE CLEAR (Clear); COLOR,URINE YELLOW (Yellow); GLUCOSE, URINE 500 mg/dl (Neg); KETONES,URINE 15 mg/dl (Neg); LEUKOCYTE ESTERASE ,URINE NEGATIVE (Neg); NITRITES, URINE NEGATIVE (Neg); OCCULT BLOOD,URINE TRACE-INTACT (Neg); PH,URINE 5.5 (4.8-8.0); PROTEIN,URINE NEGATIVE (Neg); UROBILINOGEN,URINE 0.2 E.U/dL (0.2-1.0)
[2019-05-24 19:35] LABS: UA COLLECTION TYPE CLN CATCH MIDSTREAM
[2019-05-24 19:50] LABS: BACTERIA,URINE NONE SEEN /HPF (Neg); MUCUS STRANDS FEW /LPF (Neg); RBC,URINE 0-2 /HPF (0-2); SQUAMOUS EPITHELIAL CELL,UR FEW /LPF (FEW); WBC,URINE 0-4 /HPF (0-4)
== END 2019-05-24 20:04 | disposition home or self-care (01) ==
LOC: ER 16:01
DX: S01.81XA Laceration without foreign body of other part of head, initial encounter (principal); G40.89 Other seizures; F41.9 Anxiety disorder, unspecified; Z98.890 Other specified postprocedural states; Z79.899 Other long term (current) drug therapy; W18.39XA Other fall on same level, initial encounter; Y93.89 Activity, other specified; Y92.89 Other specified places as the place of occurrence of the external cause; Y99.8 Other external cause status
CPT/HCPCS: 36415; 70450; 80053; 80164; 81001; 85025; 90471; 93005; 99284

== ENCOUNTER 2021-05-07 16:25 | Emergency (ER) | payer MEDICAID ==
[~2021-05-07] VITALS: Ht 167.6 cm; Wt 100.0 kg
[~2021-05-07 16:25] MED LIST changes: +ALBU8.5H17 IH; -ALBU8.5H8 IH
[2021-05-07 18:20] LABS: BASOPHILS # (AUTO) 0.1 X10'3 (0-0.2); BASOPHILS % (AUTO) 1.1 % (0-1); EOSINOPHILS # (AUTO) 0.1 X10'3 (0-0.9); HEMOGLOBIN 16.2 g/dl (14.0-17.9); LYMPHOCYTES # (AUTO) 0.9 X10'3 (1.1-4.8); LYMPHOCYTES % (AUTO) 16.2 % (21-51); MEAN CORPUSCULAR HEMOGLOBIN 28.8 PG (27.0-31.0); MEAN CORPUSCULAR HGB CONC 34.5 g/dL (33.0-36.5); MEAN CORPUSCULAR VOLUME 83.5 FL (78-98); MEAN PLATELET VOLUME 7.3 FL (7.4-10.4); MONOCYTES # (AUTO) 0.8 X10'3 (0-0.9); MONOCYTES % (AUTO) 13.9 % (2-12); NEUTROPHILS # (AUTO) 3.9 X10'3 (1.8-7.7); NEUTROPHILS % (AUTO) 67.8 % (42-75); PLATELET COUNT 207 X10'3 (140-440); RED BLOOD COUNT 5.63 X10'6 (4.70-6.10); RED CELL DISTRIBUTION WIDTH 14.6 % (11.5-14.5); WHITE BLOOD COUNT 5.7 X10'3 (4.5-11.0)
[2021-05-07 18:22] LABS: ALANINE AMINOTRANSFERASE 45 U/L (12-78); ALKALINE PHOSPHATASE 72 IU/L (46-116); ANION GAP 14 (8-16); ASPARTATE AMINO TRANSFERASE 26 U/L (10-37); BILIRUBIN,TOTAL 0.3 MG/DL (0.1-1.0); BLOOD UREA NITROGEN 17 MG/DL (7-18); BUN/CREATININE RATIO 15.9 (5.4-32.0); CALCIUM 9.2 MG/DL (8.5-10.1); CHLORIDE 107 MMOL/L (99-107); CREATININE 1.07 MG/DL (0.60-1.10); GLUCOSE 123 MG/DL (70-104); POTASSIUM 4.1 MMOL/L (3.5-5.1); SODIUM 143 MMOL/L (135-145); TOTAL PROTEIN 7.9 G/DL (6.4-8.2); eGFR 75 ML/MIN
[2021-05-07 20:06] VITALS: BP 144/77
== END 2021-05-07 20:07 | disposition home or self-care (01) ==
LOC: ER 16:25
DX: U07.1 COVID-19 (principal); F41.9 Anxiety disorder, unspecified; Z98.890 Other specified postprocedural states; Z86.69 Personal history of other diseases of the nervous system and sense organs; Z79.899 Other long term (current) drug therapy
CPT/HCPCS: 36415; 71045; 80053; 83880; 84484; 85025; 87635; 93005; 99285; C9803

== ENCOUNTER 2022-07-03 13:52 | Emergency (ER) | payer MEDICAID ==
[~2022-07-03] VITALS: Ht 167.6 cm; Wt 77.0 kg
[2022-07-03] MEDS ORDERED: acetaminophen 325mg tablet PO STA (14:03)
[2022-07-03] MEDS ORDERED: normal saline 1000ML IV soln IV ONE (14:05)
[2022-07-03 14:39] LABS: BASOPHILS % (AUTO) 0.4 % (0-1); EOSINOPHILS % (AUTO) 0.3 % (0-6); HEMATOCRIT 48.4 % (42.0-52.0); HEMOGLOBIN 16.2 g/dl (14.0-17.9); LYMPHOCYTES # (AUTO) 1.6 X10'3 (1.1-4.8); LYMPHOCYTES % (AUTO) 14.6 % (21-51); MEAN CORPUSCULAR HEMOGLOBIN 28.6 PG (27.0-31.0); MEAN CORPUSCULAR HGB CONC 33.5 g/dL (33.0-36.5); MEAN CORPUSCULAR VOLUME 85.4 FL (78-98); MEAN PLATELET VOLUME 7.1 FL (7.4-10.4); MONOCYTES # (AUTO) 0.6 X10'3 (0-0.9); NEUTROPHILS # (AUTO) 8.5 X10'3 (1.8-7.7); NEUTROPHILS % (AUTO) 78.7 % (42-75); PLATELET COUNT 238 X10'3 (140-440); RED BLOOD COUNT 5.67 X10'6 (4.70-6.10); RED CELL DISTRIBUTION WIDTH 14.8 % (11.5-14.5); WHITE BLOOD COUNT 10.8 X10'3 (4.5-11.0)
[2022-07-03 14:52] LABS: ALANINE AMINOTRANSFERASE 35 U/L (12-78); ALBUMIN 4.1 G/DL (3.4-5.0); ALBUMIN/GLOBULIN RATIO 1.1 (1.1-1.5); ALKALINE PHOSPHATASE 59 IU/L (46-116); ANION GAP 6 (8-16); ASPARTATE AMINO TRANSFERASE 21 U/L (10-37); BILIRUBIN,TOTAL 0.2 MG/DL (0.1-1.0); BLOOD UREA NITROGEN 19 MG/DL (7-18); BUN/CREATININE RATIO 20.7 (5.4-32.0); CALCIUM 9.8 MG/DL (8.5-10.1); CHLORIDE 100 MMOL/L (99-107); CREATINE KINASE 131 U/L (39-308); CREATININE 0.92 MG/DL (0.60-1.10); GLUCOSE 109 MG/DL (70-104); MAGNESIUM 1.7 MG/DL (1.5-2.4); POTASSIUM 3.9 MMOL/L (3.5-5.1); SODIUM 138 MMOL/L (135-145); TOTAL CARBON DIOXIDE 31.8 MMOL/L (24-32); eGFR 88 ML/MIN
[2022-07-03] MEDS ORDERED: levetiracetam inj 1,000 MG in normal saline 100ml IV soln 90 ML IV STA (14:56)
[2022-07-03] MEDS ORDERED: levetiracetam inj 1,000 MG in normal saline 100ml IV soln 100 ML IV STA (15:00)
[2022-07-03 16:00] LABS: CLARITY,URINE CLOUDY (Clear); COLOR,URINE YELLOW (Yellow); GLUCOSE, URINE NEGATIVE (Neg); KETONES,URINE TRACE mg/dl (Neg); LEUKOCYTE ESTERASE ,URINE NEGATIVE (Neg); NITRITES, URINE NEGATIVE (Neg); OCCULT BLOOD,URINE NEGATIVE (Neg); PH,URINE 8.5 (4.8-8.0); PROTEIN,URINE NEGATIVE (Neg); UROBILINOGEN,URINE 0.2 E.U/dL (0.2-1.0)
[2022-07-03 16:06] LABS: UA COLLECTION TYPE OTHER
[2022-07-03 16:20] LABS: SQUAMOUS EPITHELIAL CELL,UR MODERATE /LPF (FEW)
[2022-07-03 16:21] LABS: AMORPHOUS PHOSPHATES 2+; BACTERIA,URINE FEW /HPF (Neg); RBC,URINE 0-2 /HPF (0-2); WBC,URINE 0-4 /HPF (0-4)
[2022-07-03 16:51] VITALS: BP 100/71
== END 2022-07-03 17:17 | disposition home or self-care (01) ==
LOC: ER 13:52
DX: R53.1 Weakness (principal); Z20.822 Contact with and (suspected) exposure to COVID-19; Z85.841 Personal history of malignant neoplasm of brain
CPT/HCPCS: 36415; 70450; 71045; 80053; 81001; 82550; 83605; 83735; 84145; 85025; 87040; 87811; 93005; 96361; 96365; 99285; J1953; J3490; J7030

== ENCOUNTER 2024-12-21 09:38 | Outpatient (CLI) | payer MEDICAID ==
[2024-12-21] MEDS ORDERED: GADOTERATE MEGLUMINE 7.5 MMOL/15 ML VIAL IV ONE (10:37)
== END 2024-12-21 23:59 | disposition home or self-care (01) ==
LOC: MRI 09:38
PROVIDERS: ATTEND Neuromusculoskeletal Medicine & OMM
DX: G93.89 Other specified disorders of brain (principal); D49.6 Neoplasm of unspecified behavior of brain
CPT/HCPCS: 70553; A9575

== ENCOUNTER 2025-04-08 16:04 | Inpatient (IN) | payer MEDICAID ==
[~2025-04-08] VITALS: Ht 175.3 cm; Wt 74.6 kg
--- NOTE | 2025-04-08 16:17 | ELECTROCARDIOGRAPH REPORT ---
[facility] Test Date: 2025-04-08 Test Time: 16:16:38 Pat Name: KRISTY ROBERTO Department: EMERGENCY ROOM [id number] Room: [place] [id number] Gender: M Risk Management Internship: JEANA : 1975 Requested By: PAWEL OSWALD Order Number: [id number] Reading MD: Dr. Joaquin Escamilla Measurements Intervals Independence Rate: 111 P: 0 CA: 0 QRS: -13 QRSD: 91 T: 45 QT: 318 QTc: 432 Interpretive Statements Atrial flutter Abnormal R-wave progression, early transition Borderline ST depression, anterior leads Electronically Signed On 04-09-2025 6:12:[address] Joaquin Escamilla Please click the below link to view image of tracing.
[2025-04-08 16:35] LABS: MEAN PLATELET VOLUME 7.3 FL (7.4-10.4)
[2025-04-08 16:36] LABS: RED CELL DISTRIBUTION WIDTH 14.6 % (11.5-14.5)
--- NOTE | 2025-04-08 16:46 | RADIOLOGY REPORT ---
CT brain without contrast CLINICAL INDICATION: aloc Comparison: 07/03/2022 FINDINGS: The study was performed in a multidetector scanner. This study performed taking axial image s from the skull base up to the vertex. Both brain and bone windows are photographed. Dose lowering techniques have been used including automated exposure control and adjustment of mA and /or KV according to patient size. There are large areas of encephalomalacia in the right frontal and right temporal lobes underlying th e craniotomy defect. No intraparenchymal hemorrhage or edema No hydrocephalus or midline shift IMPRESSION: 1. No change from old exam with encephalomalacia in the right frontal and temporal lobes Computed Tomographic Radiation Dosimetry Report: Total CTDI vol = 58 mGy Total DLP = 1016 mGy-cm All CT scans at this medical facility are performed using dose modulation techniques as appropriate to a performed exam including the following: Automated exposure control was utilized; adjustment of the MA and/or KvP according to patient size; and use of iterative reconstruction technique.
[2025-04-08 16:47] LABS: CREATININE 0.80 MG/DL (0.60-1.10); TOTAL CARBON DIOXIDE 21.4 MMOL/L (24-32); VALPROATE 78 UG/ML (50-100); eCRCL 112 ML/MIN; eGFR > 90 ML/MIN
[2025-04-08 16:48] LABS: ETHANOL < 10 MG/DL (<10)
[2025-04-08] MEDS: normal saline 1000ML IV soln IVB ONE (16:48)
--- NOTE | 2025-04-08 17:15 | Physician Documentation ---
History of Present Illness ~ Chief Complaint: ALOC Stated Complaint: ALTERED Time Seen by MD: 16:08 [facility] Source: patient, EMS, EMS notes reviewed Mode of Arrival: EMS Exam Limitations: clinical condition HPI Chief Complaint: Altered mental status Caveat: Altered mental status Independent Historians: Paramedics History of Present Illness: Patient is a 49-year-old man brought in by paramedics from a long-term or boarding home called [facility]. Medics stated that staff there did not provide any information regarding his baseline mental status. Patient is somnolent but arousable. Patient is unable to give any history and seems to be nonverbal. Suspect seizure disorder given his medication list being on Depakote and Keppra. Is unknown if he has been taking it. According to a caregiver who is now here present in the ER he is normally able to take care of his own activities of daily living and is able to speak and interact appropriately. Medical records review: Patient has a history of glioblastoma and Neurosurgery. Unknown the year of the Neurosurgery. Last ER visit was June of 2022 for generalized weakness and was discharged home. Review of systems: All systems were reviewed and are negative except for what is indicated in the history of present illness. Past Medical History: History of glioblastoma, seizure disorder Past Surgical History: Neurosurgery Social History: No tobacco use, no alcohol use, no drug use Medications: Reviewed as documented Nursing Notes Allergies: Reviewed as documented in Nursing Notes Medication Reconciliation Allergies: Coded Allergies: No Known Allergies (Unverified , 04/08/25) Scheduled Carbamide Peroxide (Debrox), 5 DROP RIGHT EAR HS, (Reported) Divalproex Sodium (Depakote), 500 MG PO DAILY, (Reported) Divalproex Sodium (Depakote), 1,000 MG PO HS, (Reported) Fish Oil/Borage/Flax/Om3,6,9#1 ([place] 3-6-9 1,200 mg Softgel), 1 CAP PO DAILY, (Reported) Levetiracetam (Levetiracetam), 500 MG PO DAILY, (Reported) Levetiracetam (Levetiracetam), 1,000 MG PO HS, (Reported) Olanzapine* (Zyprexa Zydis Odt*), 1 TAB PO HS, (Reported) Scheduled PRN Acetaminophen (Acetaminophen), 1 TAB-CAP PO Q4H PRN for pain, (Reported) Albuterol Sulfate (Proair Hfa), 2 PUFFS IH Q4H PRN for SOB or wheezing Cetirizine Hcl (Zyrtec), 10 MG PO DAILY PRN for allergies, (Reported) Past Medical History Past Medical History: Seizures, *CANCER*, Anxiety Past Surgical History: brain surgery, cancer surgery Alcohol Use: None Drug Use: none Lives with: Other Lives In: Assisted Care Occupation: disabled Review of Systems All Other Systems at this time: Reviewed and Negative Unable to obtain complete ROS: altered mental status Physical Exam Vital Signs: RN Vital Signs have been reviewed: Yes, Temperature: 98.8, Source: Oral, Heart Rate: 115, Respiratory Rate: 18, BP: 152/95, Pulse Oximetry: 92, Weight: 83.000 Oxygen Flow Rate: 0 Pulse Oximetry Reflects: adequate oxygenation Physical Exam General Appearance: Acutely and chronically ill-appearing HEENT: Normal OP, moist oral mucosa, PERRL, EOMI Neck: supple, normal ROM, trachea midline Pulmonary: No respiratory distress, CTA, BS equal Cardiac: RRR, no murmur, rub or gallop, GI: nondistended, soft, nontender, normal bowel sounds, no guarding, no rebound Extremities: normal ROM, no swelling, non-tender Skin: intact, dry, warm, no rashes Neuro: Awake, alert, seems to understand, shook my hand but is currently nonverbal and unable to answer my questions, tremors in the right upper extremity Psych: normal affect, good eye contact, no apparent hallucination, normal speech Progress Results/Orders Results/Orders Orders - PAWEL OSWALD MD Accucheck (04/08/25 16:12) Urinalysis, Cult If Indicated (04/08/25 16:12) Chest,Single View (04/08/25 16:12) Ct Head (04/08/25 16:12) Drug Screen, Urine (04/08/25 16:12) Monitor (04/08/25 16:12) Saline Lock (04/08/25 16:12) * Npo Until Passed Bedside Swa (04/08/25 16:12) Nursing Swallow Screen (04/08/25 16:12) Page Hospitalist (04/08/25 17:15) Fill Out Med Reconciliation (04/08/25 17:15) Dickens Prov.Neuro Consult (04/08/25 17:34) Completed Orders - PAWEL OSWALD MD Electrocardiogram (04/08/25 16:12) Cbc/Diff (04/08/25 16:12) Chest,Single View (04/08/25 16:12) Ct Head (04/08/25 16:12) Ethanol (04/08/25 16:12) Normal Saline 1000ml (0.9% Sodium Chlori (04/08/25 16:15) BMP (04/08/25 16:12) Valproate (04/08/25 16:12) Medications Received in ER Medications (Trade) Dose Ordered Sig/Aly Route PRN Reason Start Time Stop Time Status Last Admin Dose Admin (0.9% sodium chloride (NS) 1000ml IV soln) 500 ml ONCE ONCE IVB 04/08/25 16:15 04/08/25 16:16 DC 04/08/25 16:48 500 ML Vital Signs 04/08/25 04/08/25 16:13 18:11 Temp 98.8 98.5 Pulse 115 88 Resp 18 16 B/P (MAP) 152/95 133/79 (97) Pulse Ox 92 98 O2 Flow Rate 0 0 Laboratory Tests Test 04/08/25 16:22 04/08/25 16:25 Glucometer 123 H White Blood Count 13.0 H Red Blood Count 5.49 Hemoglobin 16.1 Hematocrit 46.6 Mean Corpuscular Volume 84.9 Mean Corpuscular Hemoglobin 29.4 Mean Corpuscular Hemoglobin Concent 34.6 Red Cell Distribution Width 14.6 H Platelet Count 223 Mean Platelet Volume 7.3 L Neutrophils (%) (Auto) 62.2 Lymphocytes (%) (Auto) 26.6 Monocytes (%) (Auto) 9.8 Eosinophils (%) (Auto) 0.2 Basophils (%) (Auto) 1.2 H Neutrophils # (Auto) 8.1 H Lymphocytes # (Auto) 3.5 Monocytes # (Auto) 1.3 H Eosinophils # (Auto) 0.0 Basophils # (Auto) 0.2 CBC Comment Sodium Level 137 Potassium Level 3.7 Chloride Level 103 Carbon Dioxide Level 21.4 L Anion Gap 13 Blood Urea Nitrogen 19 H Creatinine 0.80 Estimated GFR/1.73 m2 > 90 BUN/Creatinine Ratio 23.8 H Glucose Level 113 H Calcium Level 8.9 Albumin 3.7 Chemistry Comments Valproic Acid (Depakene) Level 78 Ethyl Alcohol Level < 10 Medical Decision Making Additional info obtained from: old records, ostomy care nurse Findings Differential diagnosis includes but is not limited to: Seizures, postictal, electrolyte abnormalities, dehydration, encephalopathy, metabolic encephalopathy, toxic encephalopathy, substance abuse, acute kidney injury, ischemic CVA, hemorrhagic CVA EKG independent interpretation: Performed at 4:16 p.m.. Sinus tachycardia, heart rate 111, leftward axis, nonspecific ST segments Chest x-ray, single view, indication: Altered mental status Independent interpretation: Lungs are clear, normal mediastinum, normal cardiac silhouette. No acute cardiopulmonary process Head CT without IV contrast, indication: Altered mental status Impression: 1. No change from old exam with encephalomalacia in the right frontal and temporal lobes Laboratory data independent interpretation: CBC: Leukocytosis of 13 BMP: Bicarb mildly low at 21.4, BUN mildly elevated at 19, serum glucose 113 Toxicology: Valproic acid level 78, blood alcohol <10 Urinalysis: Emergency department course/medical decision-making: Patient presents with altered mental status. An business systems administrator from the [facility] who knows him well states that his last known well time was some time around dinner time. He was acting normally and speaking normally and takes care of his own activities of daily living. There does not appear to be any changes on the CT imaging. Encephalomalacia present is unchanged. No evidence of ischemic or hemorrhagic stroke. Cause for his altered mental status that has been persistent now for close to 20+ hours is unknown. We will obtain neuro consult. Recommend admission and EEG. 6:10 p.m.: It was just discovered that the adviser to the [facility] stated that he had a fever earlier today. Supposed of the fever was 101. However the patient is afebrile here. Blood cultures will be added, urinalysis still pending. Patient will be given empiric Rocephin. Patient is and has remained afebrile and hemodynamically stable. Case discussed with the hospitalist Dr. Barahona for admission. Consultation/communications: Tele neuro consult pending 5:46 p.m.: Case discussed with the neurologist and he will evaluate. 6:05 p.m.: Case discussed with the neurologist. He is not concerned about status epilepticus. No current seizure activity is present. He recommends adm ission for MRI with and without contrast and an EEG. Departure Time of Disposition: 17:16 Disposition: 09 ADMITTED INPATIENT Admitted to Inpatient Unit: to hospitalist Admission Level of Care: Neuro with Tele Impression: Primary Impression: Altered mental status Qualified Codes: R40.0 - Somnolence Condition: Fair Education Educated: Patient Educated regarding: diagnosis, treatment Signature Scribe Signature: No scribe Attestation: No scribe PAWEL OSWALD MD Apr 08, 2025 17:15
--- NOTE | 2025-04-08 18:09 | [facility] CONSULT REPORT ---
[facility] Procedure Note [facility] Procedure Note Consult [facility] Note # Demographics Consult Type: General Neurology Patient Location: Emergency Room First Name: KRISTY Last Name: FELISA Date of : 1975 Age: 49 Gender: Male Facility: [facility] Time of Initial Page (): 04/08/2025 17:39 First Contact with Site (): 04/08/2025 17:40 # HPI Chief Complaint: - confusion History: 49-year-old male with a distant history of glioblastoma and seizure (on Keppra 1000 mg in AM and 1500 mg in PM, Depakote 500 mg in AM and 1000 mg PM) who presents with altered mental status that began last night after dinner. The patient, who [facility] and is capable of performing normal activities of daily living (ADLs), has become nonverbal and somnolent. He is awake and appears to understand what is going on, as evidenced by shaking the doctor's hand upon introduction, but quickly falls back to sleep. Facility staff at bedside stated that he had some problems yesterday around 11 PM - patient was not talking as much last night, which is different from his usual baseline. Last Known Normal: - yesterday evening - 11 PM # Scores Time of exam and NIHSS (): 04/08/2025 17:59 Level of Consciousness 1a: [2] = Not alert; requires strong or painful stim LOC Questions 1b: [2] = Answers neither correctly LOC Commands 1c: [0] = Performs both tasks correctly Best Gaze 2: [0] = Normal Visual 3: [0] = No visual loss Facial Palsy 4: [0] = Normal symmetrical movements Motor Arm Left 5a: [2] = Some effort against gravity Motor Arm Right 5b: [2] = Some effort against gravity Motor Leg Left 6a: [3] = No effort against gravity Motor Leg Right 6b: [3] = No effort against gravity Limb Ataxia 7: [0] = Absent Sensory 8: [0] = Normal Best Language 9: [1] = Sdsj-am-jjugghum aphasia Dysarthria 10: [2] = Severe dysarthria Extinction and Inattention 11: [0] = No abnormality NIHSS Total: 17 # Data Time Head CT personally read by me (): 04/08/2025 17:[address]: - no bleed - per radiologist read # Assessment Impression: - Seizure-like Activity # Plan Thrombolytic/Intervention: NOT IV Thrombolysis or IA Intervention candidate Thrombolytic Exclusion: > 4.5 hours Intraarterial Exclusion: - clinically not consistent with stroke Labs: - urine drug screen - Ammonia - B12 - comprehensive metabolic panel - CBC - TSH Imaging: (urgency: routine): - MRI Brain with AND without contrast Diagnostic Test: - EEG Medication: - continue with home dosing of Keppra and Depakote - no changes to be made yet pending EEG results and his clinical improvement Other: - If patient has any neurological deterioration please call me back immediately - seizure precautions - would not pursue stroke work-up if MRI is negative - I have discussed my recommendations with the referring provider Disposition: admit # Logistics Attestation of consult completion: The patient is located at: [facility]. Facility staff participated in the visit. I performed this telemedicine visit from my offsite office utilizing interactive 2 way audio and visual telecommunication technology at the request of the onsite emergency room provider. Total time spent in telemedicine encounter: I spent 15 minutes reviewing clinical data and/or imaging, obtaining history, examining the patient, comm unicating with the onsite care team, and in preparation of this report. # Demographics First Name: KRISTY Last Name: FELISA Facility: [facility] Neuro Consult Order placed for: Yes PEYMAN DINH MD Apr 08, 2025 18:09
[2025-04-08] MEDS ORDERED: magnesium Cl slow-release 64mg tablet PO PRN (18:25)
[2025-04-08] MEDS ORDERED: magnesium hydroxide 30ml (MOM) UD suspension PO PRN (18:25)
[2025-04-08] MEDS ORDERED: magnesium sulf-water 2g/50mL 50 ML IV PRN (18:25)
[2025-04-08] MEDS ORDERED: mag hydrox/Alum hydrox/simeth 30ml oral suspension PO PRN (18:25)
[2025-04-08] MEDS ORDERED: HYDROcodone/acetaminophen 5mg/325mg tablet PO PRN (18:25)
[2025-04-08] MEDS: normal saline 1000ml 1,000 ML IV SCH (18:25)
[2025-04-08] MEDS ORDERED: HYDROcodone/acetaminophen 10/325mg tab PO PRN (18:25)
[2025-04-08] MEDS ORDERED: acetaminophen 650mg rectal suppository RC PRN (18:25)
[2025-04-08] MEDS ORDERED: ondansetron/PF 4mg/2ml inj IV PRN (18:25)
[2025-04-08] MEDS ORDERED: potassium Cl 20 mEq SR tablet PO PRN (18:25)
[2025-04-08] MEDS ORDERED: magnesium sulf-water 4G/100mL 100 ML IV PRN (18:25)
--- NOTE | 2025-04-08 18:25 | HISTORY AND PHYSICAL ---
History & Physical Providers to CC Chief complaint, fever, cough, altered level of consciousness ~ History of Present Illness Reason for Admit\Complaint: As above History of Present Illness This is a 49-year-old male with a distant history of glioblastoma and seizure (on Keppra 1000 mg in AM and 1500 mg in PM, Depakote 500 mg in AM and 1000 mg PM) , history of hypertension, right side encephalomalacia, developmental delay, presented today to emergency department chief complaint altered level of consciousness associated with fever cough; who presents with altered mental status that began last night after dinner. The patient, who normally resides in a [facility] and is capable of performing normal activities of daily living (ADLs), has become nonverbal and somnolent. He is awake and appears to understand what is going on, as evidenced by shaking the doctor's hand upon introduction, but quickly falls back to sleep. Facility staff at bedside stated that he had some problems yesterday around 11 PM - patient was not talking as much last night, which is different from his usual baseline. In emergency department he was evaluated by physician, including by virtual neurologist, was diagnosed with altered level of consciousness rule out sepsis, started on IV antibiotics, decision was made to admit patient for further evaluation and treatment. No additional complaint or concern Allergies: Coded Allergies: No Known Allergies (Unverified , 04/08/25) Active prescriptions I reviewed reconciled Home Medications Home Medications Active Proair Hfa (Albuterol Sulfate) 1 Puff Inh 2 Puffs IH Q4H PRN Reported Zyrtec (Cetirizine Hcl) 10 Mg Capsule 10 Mg PO DAILY PRN Acetaminophen 325 Mg Capsule 1 Tab-Cap PO Q4H PRN Debrox (Carbamide Peroxide) 15 Ml Drops 5 Drop RIGHT EAR HS 2 Days [place] 3-6-9 1,200 mg Softgel (Fish Oil/Borage/Flax/Om3,6,9#1) 1,200 Mg Capsule 1 Cap PO DAILY 30 Days Depakote (Divalproex Sodium) 500 Mg Tablet. 1,000 Mg PO HS Depakote (Divalproex Sodium) 500 Mg Tablet. 500 Mg PO DAILY Levetiracetam 500 Mg Tablet 1,000 Mg PO HS Levetiracetam 500 Mg Tablet 500 Mg PO DAILY Zyprexa Silver Odt* (Olanzapine) 5 Mg Tab.rapdis 1 Tab PO HS DISSOLVE TABLET ON TONGUE. Past Medical History Past Medical History As in HPI Past Surgical History Surgical History Comment As in HPI Past Social History Social History Comment Lives in assisted living facility, deny illicit drug abuse tobacco alcohol use good social support Health Maintenance Health Maintenance Noncontributory ROS ROS Constitutional : no fever , no chills, or weakness. No diaphoresis. Allergic/Immunologic, no lymphadenopathy, no hives, no skin eruptions. Eyes, no recent visual changes, no eye pain, no photophobia. Ears, nose, mouth, throat, no sore throat, no nosebleed, no ear pain. Cardiovascular, no palpitations, skipped beats, chest pain, no peripheral edema, Respiratory, positive for dyspnea, orthopnea, cough, no hemoptysis, chest wall pain. Gastrointestinal, no abdominal pain, nausea, vomiting, constipation or diarrhea. : no dysuria, hematuria, pelvic pain, urethral d/c. Endocrine, no polyuria, polydipsia, recent unintentional weight gain or loss. Hematologic/Lymphatic, no petechiae, no enlarged lymph nodes, no bone pain. Integumentary, no rash, no skin lesions, Musculoskeletal, no muscle aches, or pain, no muscle cramps, no recent change in gait Neurological, positive for altered level consciousness, history of seizure, no dizziness, no headache, no syncope, no paresthesia. Psychiatric, no delusions, visual hallucinations, or hearing hallucinations. ROS - in rest is as in HPI. Exam Vitals: Vital Signs Date Time Temp Pulse Resp B/P (MAP) Pulse Ox O2 Delivery O2 Flow Rate FiO2 04/08/25 18:15 16 04/08/25 18:11 98.5 88 133/79 (97) 98 0 Vital signs, stable ,afebrile. Pulse Oximetry reflects adequate oxygenation. BMI is 27, weight 83 kg General: well developed, well nourished. Awake , alert, and oriented x4, resting comfortably in the bed, in no acute distress . Skin: Warm, dry, no pallor, no rash or petechiae. HEENT: Atraumatic, normocephalic, EOMI, anicteric sclera B; pink conjunctiva; PERRLA, normal oropharynx, moist oral and nasal mucosa. Tympanic membrane , nose , throat clear. Neck: Trachea midline. Supple, full range of motion, no JVD, bruit , hepatojugular reflex , lymphadenopathy or masses, or other lesions Cardiac: Regular rhythm, regular rate no murmurs, rubs, or gallops. Normal S1 and S2, no S3 noticed. PMI is normal. Respiratory: Equal breath sounds bilaterally, no tachypnea; lungs clear to auscultation bilaterally, no wheezing ,rub or rales, or crackles. Chest wall is symmetric and without deformity. No signs of trauma. Chest wall is nontender. No signs of respiratory distress. Resonance is normal upon percussion bilaterally. Gastrointestinal: Abdomen symmetric, non-distended, soft, non-tender, normal bowel sounds x4 quadrant, normoactive, no hepatosplenomegaly , no masses , no bruit, no flank pain bilaterally. No voluntary guarding, rebound, or rigidity. No tenderness to percussion. No pulsatile masses. Equal femoral pulses. No Carrillo's sign or McBurney point tenderness. Back; no CVA tenderness bilaterally, no deformities. Neck and back are without deformity as well. No tenderness noted on palpation of the spinous processes. Spinous processes are midline. Cervical, thoracic, and lumbar paraspinal muscles are not tender and are without spasm. : normal external genitalia, without lesions, swelling, masses or tenderness. Musculoskeletal: Extremities, normal range of motion, non-tender, muscle strength 5/5 x 4. Negative Homans signs bilaterally on lower extremity. Distal pulses full symmetrical, no clubbing, cyanosis , edema. Neurological: Speech is clear, alert, and oriented x 4. No motor or sensory deficit, deep tendon reflexes normal, cerebellar intact. Cranial nerves II-XII intact. Psych: Alert and or appropriate, normal affect. Vascular: Good distal pulses, which are equal x4; capillary refill less than 2 seconds. Lymphatic, no lymphadenopathy. Diagnostic Data Last Recorded Lab Results: 04/08/25 1625 04/08/25 1625 Advance Care Planning Advanced Care plannin - 30 Minutes Additional Plan Assessment A right-sided pneumonia, community-acquired Gram-positive Gram-negative mixed kassy Sepsis Chronic epilepsy in exacerbation History of developmental delay Right side encephalomalacia History of glioblastoma removal Metabolic encephalopathy Plan IV antibiotics, fluids keep patient well hydrated euvolemic SVN DuoNeb, incentive spirometry Additional lab work pending MRI, electroencephalography pending CT chest abdomen pelvis pending Seizure precautions PT evaluation And treatment I reconciled home medications DVT gastropathy prophylaxis addressed Sepsis Screening Reassessment Date: Apr 08, 2025 Date of Service: Apr 08, 2025 Billing Provider: TEZ VILLAGRAN MD Common Visit Codes: [id number] INP/OBS CARE (HIGH) Secondary Visit Codes: [id number] CARE PLAN ADDL 30MIN TEZ VILLAGRAN MD Apr 08, 2025 18:25
[2025-04-08 18:57] LABS: APTT 31 SECONDS (22-32); INR 1.2 INR
--- NOTE | 2025-04-08 19:19 | RADIOLOGY REPORT ---
EXAM: CT CT CHEST ABDOMEN PELVIS History: sepsis Comparison Study: None TECHNIQUE: Multidetector CT of the chest, abdomen, and pelvis was performed. Imaging was performed wi thout IV contrast. Axial, coronal, and sagittal multiplanar reformats were obtained from the axial da ta set by the technologist. Radiation Dose : CTDI vol 29.63 mGy, DLP 2718.8 mGy*cm. Findings: CT chest: Evaluation is degraded by respiratory motion. Lungs: Dependent atelectatic changes. Pleura: Unremarkable Heart/Great vessels: No cardiomegaly or pericardial effusion. Unremarkable appearance of the aorta. Mediastinum: Unremarkable. Soft tissues/Bones: Unremarkable CT abdomen/ pelvis: Liver: Unremarkable. Spleen: Unremarkable. Pancreas: Unremarkable. Gallbladder: Unremarkable. Adrenals: Unremarkable. Kidneys: No hydronephrosis. Nonspecific bilateral perinephric stranding. Pelvic Viscera: Unremarkable. Vasculature: Mild atherosclerotic aortoiliac calcifications. Retroperitoneum: Unremarkable Bowel: No bowel obstruction. The appendix is normal. Musculoskeletal: Unremarkable. Soft tissues: Tiny fat containing umbilical hernia. Impression: 1. No acute abnormality identified within the chest. 2. Nonspecific bilateral perinephric stranding, possibly senescent in etiology, however infectious/in flammatory process cannot be excluded in the appropriate clinical setting. 3. Additional findings as detailed.
[2025-04-08 19:21] LABS: PHOSPHORUS 2.7 MG/DL (2.3-4.5); PRO BRAIN NATRIURETIC PEPTIDE 392 PG/ML (0-125)
[2025-04-08] MEDS: CefTRIAXone 2gm/D5W 50ml BAG 50 ML IV ONE (19:34)
[2025-04-08] MEDS: ringers solution, lactated 1000ml IV soln IV ONE (19:37)
[2025-04-08] MEDS: docusate sod 100mg capsule PO SCH (20:00)
[2025-04-08] MEDS: K and/or MAG REPLACEMENT MC SCH (20:13)
[2025-04-08] MEDS ORDERED: BUPR100T13 PO (20:56)
[2025-04-08] MEDS ORDERED: ATOR20TA PO (20:56)
[2025-04-08] MEDS ORDERED: ARIP20TA63 PO (20:56)
[2025-04-08] MEDS ORDERED: CITA-178 PO (20:56)
[2025-04-08] MEDS: heparin, porcine 5000 units/ml vial SQ SCH (21:15)
[2025-04-08 22:41] LABS: LEUKOCYTE ESTERASE ,URINE NEGATIVE (Neg); NITRITES, URINE NEGATIVE (Neg); OCCULT BLOOD,URINE TRACE-INTACT (Neg)
[2025-04-08 22:42] LABS: UA COLLECTION TYPE NON-SPECIFIED
[2025-04-08 22:51] LABS: MUCUS STRANDS FEW /LPF (Neg); SQUAMOUS EPITHELIAL CELL,UR FEW /LPF (FEW)
[2025-04-08 22:58] LABS: URINE AMPHETAMINE SCREEN NEGATIVE (Neg); URINE BARBITUATE SCREEN NEGATIVE (Neg); URINE BENZODIAZEPINES SCREEN NEGATIVE (Neg); URINE CANNABINOID SCREEN NEGATIVE (Neg); URINE COCAINE SCREEN NEGATIVE (Neg); URINE METHADONE SCREEN NEGATIVE (Neg); URINE OPIATE SCREEN NEGATIVE (Neg); URINE PHENCYCLIDINE SCREEN NEGATIVE (Neg)
[2025-04-08 23:15] VITALS: PULSE 81; RESP 16; O2SAT 98
[2025-04-08 23:20] VITALS: BP 106/82; PULSE 83; RESP 16; TEMP 97.5; O2SAT 97
[2025-04-09] VITALS (11 sets, daily range): BP systolic 125–144; BP diastolic 80–110; PULSE 79–96; RESP 13–22; TEMP 97.1–100.8; O2SAT 92–99
[2025-04-09 06:53] LABS: MEAN PLATELET VOLUME 7.7 FL (7.4-10.4); RED CELL DISTRIBUTION WIDTH 14.4 % (11.5-14.5)
[2025-04-09 07:26] LABS: CREATININE 0.69 MG/DL (0.60-1.10); TOTAL CARBON DIOXIDE 24.9 MMOL/L (24-32); VALPROATE 60 UG/ML (50-100); eCRCL 130 ML/MIN; eGFR > 90 ML/MIN
[2025-04-09] MEDS: pantoprazole 40mg Tablet.DR PO SCH (07:30)
[2025-04-09] MEDS: divalproex sodium 500mg tablet.DR PO SCH (08:00)
[2025-04-09] MEDS: CefTRIAXone 2gm/D5W 50ml BAG 50 ML IV SCH (08:44)
[2025-04-09] MEDS: azithromycin/NS 500mg/250ml 250 ML IV SCH (08:44)
--- NOTE | 2025-04-09 12:01 | RADIOLOGY REPORT ---
[facility] EXAMINATION: MR MRI HEAD INDICATION: Altered level of consciousness, seizure. COMPARISON: CT CT HEAD on DOS: 04/08/25, MR MRI HEAD on DOS: 12/21/24 TECHNIQUE: Multiplanar, multisequence magnetic resonance imaging of the brain was performed without the use of i ntravenous contrast. FINDINGS: No evidence of acute infarct. No intracranial hemorrhage. No mass effect. There is encephalomalacia in the right frontal and temporal lobes similar to prior study. There is periventricular/deep white matter T2/FLAIR hyperintensity is nonspecific, but most commonly associated with chronic microvascular disease. There is ex vacuo dilatation of the right lateral ventricle. No hydrocephalus. The basal cisterns are patent. The sulci are not effaced. Flow voids in the major intracranial vessels are maintained. No abnormality of the orbits. Paranasal sinuses and mastoid air cells are clear. No abnormality of the visualized osseous structures and extracranial soft tissues. IMPRESSION: 1. No acute infarct, intracranial hemorrhage, mass effect, or hydrocephalus. 2. Stable encephalomalacia in the right frontal and temporal lobes.
[2025-04-09] MEDS: levetiracetam-NACL1000mg/100ml 100 ML IV SCH (12:43)
[2025-04-09] MEDS: acetaminophen 1,000mg/100ml IV 100 ML IV ONE (15:22)
--- NOTE | 2025-04-09 15:47 | [facility] CONSULT REPORT ---
[facility] Procedure Note [facility] Procedure Note Consult [place] [facility] Note # Demographics Type of EEG Read: - Routine EEG - video Patient Location: - Inpatient - STAT read requested First Name: Carlos Last Name: Gilbert Date of : 1975 Age: 49 Gender: Male Facility: [facility] Time of Initial Page (): 04/09/2025 08:00 First Contact with Site (): 04/09/2025 08:04 # EEG Interpretation Start Time of EEG Read (): 04/09/2025 08:25 Stop Time of EEG Read (): 04/09/2025 08:45 Duration: 0h 20m Technical Details: - The EEG electrodes were placed using the standard International 10-20 system of electrode placement. Video and an accessory EKG lead were used during the course of this study. - This study was recorded using the GCD Systeme EEG software Indication: - altered mental status # Description Photic Stimulation: NOT Performed Hyperventilation: NOT performed Phases Captured: - awake - drowsy Symmetry: symmetric Posterior Dominant Rhythm: The record is continuous, of normal amplitude and bilaterally symmetrical. There was no clear posterior dominant rhythm captured. There is a moderate amount of diffuse low amplitude 15-25 Hz beta activity and moderate amount of 4-7 Hz theta activity. Occasional <4 Hz delta activity is present. With drowsiness, there is attenuation of the background alpha activity and a shift to slower frequencies. Amplitude: normal Reactivity: yes Variability: yes Continuity: continuous EKG: artifactual # Abnormalities Epileptiform Abnormalities: - NOT present Focal Slowing: - yes Continuous right hemispheric focal slowing Seizure: - NOT present No push button events # Impression Impression: abnormal 1. Diffuse Slowing 2. Continuous right hemispheric focal slowing # Clinical Correlation Clinical Correlation: 1. Diffuse slowing is non-specific and may be seen in the setting of diffuse cerebral dysfunction; such as toxic/metabolic/infectious encephalopathy or heavily sedating medication use. 2. Focal slowing indicates cerebral dysfunction from a wide variety of potential etiologies in the region affected; it is a non-specific indicator of a structural or functional abnormality. # Demographics First Name: Carlos Last Name: Gilbert Facility: [facility] Neuro Consult Order placed for: Yes MAUREEN FLEMING MD Apr 09, 2025 15:47
--- NOTE | 2025-04-09 16:44 | PROGRESS NOTE ---
Daily Progress Note Providers to CC Had an episode of seizure today, resolved after IV Ativan ~ Central Line/PICC still needed: No Mason-Non Protocol Mason Indications Met/Not Met: F/C Indications Not Met Antibiotic Timeout Antibiotic Ordered?: Yes MRSA Education MRSA Education Provided to pt: Yes Subjective As above Objective Vital Signs Date Time Temp Pulse Resp B/P (MAP) Pulse Ox O2 Delivery O2 Flow Rate FiO2 04/09/25 11:00 97.5 94 20 125/85 (98) 96 Room Air 04/09/25 09:28 0 21 Vital signs, stable ,afebrile. Pulse Oximetry reflects adequate oxygenation. General: well developed, well nourished. Awake , alert, and oriented x4, resting comfortably in the bed, in no acute distress . Skin: Warm, dry, no pallor, no rash or petechiae. HEENT: Atraumatic, normocephalic, EOMI, anicteric sclera B; pink conjunctiva; PERRLA, normal oropharynx, moist oral and nasal mucosa. Tympanic membrane , nose , throat clear. Neck: Trachea midline. Supple, full range of motion, no JVD, bruit , hepatojugular reflex , lymphadenopathy or masses, or other lesions Cardiac: Regular rhythm, regular rate no murmurs, rubs, or gallops. Normal S1 and S2, no S3 noticed. PMI is normal. Respiratory: Equal breath sounds bilaterally, no tachypnea; lungs clear to auscultation bilaterally, no wheezing ,rub or rales, or crackles. Chest wall is symmetric and without deformity. No signs of trauma. Chest wall is nontender. No signs of respiratory distress. Resonance is normal upon percussion bilaterally. Gastrointestinal: Abdomen symmetric, non-distended, soft, non-tender, normal bowel sounds x4 quadrant, normoactive, no hepatosplenomegaly , no masses , no bruit, no flank pain bilaterally. No voluntary guarding, rebound, or rigidity. No tenderness to percussion. No pulsatile masses. Equal femoral pulses. No Carrillo's sign or McBurney point tenderness. Back; no CVA tenderness bilaterally, no deformities. Neck and back are without deformity as well. No tenderness noted on palpation of the spinous processes. Spinous processes are midline. Cervical, thoracic, and lumbar paraspinal muscles are not tender and are without spasm. : normal external genitalia, without lesions, swelling, masses or tenderness. Musculoskeletal: Extremities, normal range of motion, non-tender, muscle strength 5/5 x 4. Negative Homans signs bilaterally on lower extremity. Distal pulses full symmetrical, no clubbing, cyanosis , edema. Neurological: Speech is clear, alert, and oriented x 4. No motor or sensory deficit, deep tendon reflexes normal, cerebellar intact. Cranial nerves II-XII intact. Psych: Alert and or appropriate, normal affect. Vascular: Good distal pulses, which are equal x4; capillary refill less than 2 seconds. Lymphatic, no lymphadenopathy. Result Diagram: 04/09/25 0604 04/09/25 0604 Coagulation Studies Laboratory Tests Test 04/08/25 16:25 Prothrombin Time 11.9 SECONDS (9.0-12.0) INR International Normalized Ratio 1.2 INR Activated Partial Thromboplast Time 31 SECONDS (22-32) Coagulation Comments Problem\Assessment\Plan Assessment A right-sided pneumonia, community-acquired Gram-positive Gram-negative mixed kassy Sepsis Chronic epilepsy in exacerbation History of developmental delay Right side encephalomalacia History of glioblastoma removal Metabolic encephalopathy Plan IV antibiotics, fluids keep patient well hydrated euvolemic SVN DuoNeb, incentive spirometry Additional lab work pending MRI, electroencephalography pending CT chest abdomen pelvis pending Seizure precautions On Keppra B.i.d. PT evaluation And treatment I reconciled home medications DVT gastropathy prophylaxis addressed Sepsis Screening Reassessment Date: Apr 09, 2025 Date of Service: Apr 09, 2025 Billing Provider: TEZ VILLAGRAN MD Common Visit Codes: [id number] INP/OBS CARE(HIGH) TEZ VILLAGRAN MD Apr 09, 2025 16:43
--- NOTE | 2025-04-09 16:48 | CONSULTATION REPORT ---
History of Present Illness Providers to CC ~ Reason for Admit\Admit Dx: As above Refering MD: KARSON Allergies: Coded Allergies: No Known Allergies (Unverified , 04/08/25) Home Medications Home Medications Active Proair Hfa (Albuterol Sulfate) 1 Puff Inh 2 Puffs IH Q4H PRN Reported Celexa* (Citalopram Hydrobromide) 20 Mg Tablet 1 Tab PO DAILY 30 Days Aripiprazole 20 Mg Tablet 1 Tab PO HSPRN PRN 30 Days Lipitor (Atorvastatin Calcium) 20 Mg Tablet 1 Tab PO DAILY 30 Days Wellbutrin (Bupropion Hcl) 100 Mg Tablet 100 Mg PO TID Depakote (Divalproex Sodium) 500 Mg Tablet.dr 500 Mg PO DAILY Levetiracetam 500 Mg Tablet 1,000 Mg PO HS Levetiracetam 500 Mg Tablet 500 Mg PO DAILY Zyprexa Zydis Odt* (Olanzapine) 5 Mg Tab.rapdis 1 Tab PO HS DISSOLVE TABLET ON TONGUE. Physical Exam Last Vital Signs Recorded: Temperature: 100.8, Source: Oral, Heart Rate: 96, Respiratory Rate: 19, BP: 132/98, Pulse Oximetry: 94, Weight: 83.000 Results Diagram Lab Result Diagram: 04/09/25 0604 04/09/25 0604 Assessment/Plan Additional Plan [place] [facility] Note # Demographics Consult Type: Follow-Up Phone Call Patient Location: Inpatient First Name: Carlos Last Name: Gilbert Date of : 1975 Age: 49 Gender: Male Facility: [facility] Time of Initial Page (): 04/09/2025 16:17 First Contact with Site ( Time): 04/09/2025 16:18 Phone Only Consult: 49 y/o M seen by Dr. Morgan yesterday for altered mental status--nonverbal and somnolent. EEG with right hemisphere slowing. MRI brain with no acute changes. Stable encephalomalacia in the right frontal and temporal lobes. Discussed with Dr. Barahona--patient without clinical improvement. Okay to consider lumbar puncture given lack of clear etiology. If lumbar puncture also unrevealing would consider continuous EEG to exclude intermittent seizures. Phone Agreement: - phone consult deemed mutually sufficient for patient care # Plan Other: - If patient has any neurological deterioration please call me back immediately # Logistics Attestation of consult completion: The patient is located at: [facility]. I performed this phone consultation from my offsite office Total time spent in telemedicine encounter: I spent 10 minutes in reviewing clinical data and/or imaging, obtaining history, communicating with the onsite care team, and in preparation of this report. # Demographics First Name: Carlos Last Name: Gilbert Facility: [facility] TRELL BARRETO MD Apr 09, 2025 16:48
[2025-04-09] MEDS: OLANZapine 5mg rapidly disint. tablet PO SCH (20:35)
[2025-04-09] MEDS ORDERED: levetiracetam-NACL1000mg/100ml 100 ML IV SCH (21:00)
[2025-04-10] VITALS (12 sets, daily range): BP systolic 124–150; BP diastolic 71–96; PULSE 81–114; RESP 21–28; TEMP 97.4–98.4; O2SAT 90–98
[2025-04-10 06:45] LABS: CREATININE 0.91 MG/DL (0.60-1.10); TOTAL CARBON DIOXIDE 25.1 MMOL/L (24-32); eCRCL 98 ML/MIN; eGFR 89 ML/MIN
[2025-04-10 07:22] LABS: MEAN PLATELET VOLUME 7.7 FL (7.4-10.4); RED CELL DISTRIBUTION WIDTH 14.1 % (11.5-14.5)
--- NOTE | 2025-04-10 10:27 | RADIOLOGY REPORT ---
DI ABDOMEN,SINGLE VIEW(KUB) HISTORY: NG tube TECHNICAL DATA: 1 view of the abdomen. COMPARISON: None FINDINGS: Patchy gas is identified within nondistended small bowel. There are no dilated small bowel loops. Th ere is no abdominal mass effect. The renal and liver shadows are not enlarged. NG tube in the stomac h. IMPRESSION: NG tube in the stomach.
--- NOTE | 2025-04-10 10:28 | RADIOLOGY REPORT ---
DI CHEST,SINGLE VIEW, HISTORY: aloc COMPARISON: CHEST,SINGLE VIEW on DOS: 07/03/22, CHEST,SINGLE VIEW on DOS: 05/07/21 CHEST,SINGLE VIEW on DOS: 07/03/22, CHEST,SINGLE VIEW on DOS: 05/07/21 TECHNICAL DATA: 1 view of the chest was obtained. FINDINGS: Lines and tubes: None Cardiomediastinal silhouette: normal Pulmonary vasculature: normal Lung expansion: low Lung airspace: normal Lung interstitium: normal Pleura: normal Pneumothorax: no Bones: Unremarkable Other: no IMPRESSION: No acute intrathoracic abnormality.
[2025-04-10] MEDS ORDERED: LidoCAINE 2% Topical Jelly 11mL syringe (UROJET) TOP ONE (16:30)
[2025-04-10] MEDS: potassium Cl 20 mEq SR tablet PO PRN (16:35)
--- NOTE | 2025-04-10 16:35 | PROGRESS NOTE ---
Daily Progress Note Providers to CC Patient resting comfortably in bed, sedated ~ Central Line/PICC still needed: No Mason-Non Protocol Mason Indications Met/Not Met: F/C Indications Met Antibiotic Timeout Antibiotic Ordered?: Yes MRSA Education MRSA Education Provided to pt: Yes Subjective As above Objective Vital Signs Date Time Temp Pulse Resp B/P (MAP) Pulse Ox O2 Delivery O2 Flow Rate FiO2 04/10/25 11:00 98.2 109 25 134/84 (101) 90 Room Air 04/10/25 09:56 0 21 Vital signs, stable ,afebrile. Pulse Oximetry reflects adequate oxygenation, SaO2 90% on room air General: well developed, well nourished. Somnolent, Skin: Warm, dry, no pallor, no rash or petechiae. HEENT: Atraumatic, normocephalic, EOMI, anicteric sclera B; pink conjunctiva; PERRLA, normal oropharynx, moist oral and nasal mucosa. Tympanic membrane , nose , throat clear. Neck: Trachea midline. Supple, full range of motion, no JVD, bruit , hepatojugular reflex , lymphadenopathy or masses, or other lesions Cardiac: Regular rhythm, regular rate no murmurs, rubs, or gallops. Normal S1 and S2, no S3 noticed. PMI is normal. Respiratory: Equal breath sounds bilaterally, no tachypnea; lungs clear to auscultation bilaterally, no wheezing ,rub or rales, or crackles. Chest wall is symmetric and without deformity. No signs of trauma. Chest wall is nontender. No signs of respiratory distress. Resonance is normal upon percussion bilaterally. Gastrointestinal: Abdomen symmetric, non-distended, soft, non-tender, normal bowel sounds x4 quadrant, normoactive, no hepatosplenomegaly , no masses , no bruit, no flank pain bilaterally. No voluntary guarding, rebound, or rigidity. No tenderness to percussion. No pulsatile masses. Equal femoral pulses. No Carrillo's sign or McBurney point tenderness. Back; no CVA tenderness bilaterally, no deformities. Neck and back are without deformity as well. No tenderness noted on palpation of the spinous processes. Spinous processes are midline. Cervical, thoracic, and lumbar paraspinal muscles are not tender and are without spasm. : normal external genitalia, without lesions, swelling, masses or tenderness. Musculoskeletal: Extremities, normal range of motion, non-tender, muscle strength 5/5 x 4. Negative Homans signs bilaterally on lower extremity. Distal pulses full symmetrical, no clubbing, cyanosis , edema. Neurological: Somnolent Psych: Somnolent Vascular: Good distal pulses, which are equal x4; capillary refill less than 2 seconds. Lymphatic, no lymphadenopathy. Result Diagram: 04/10/25 0555 04/10/25 0555 Coagulation Studies Laboratory Tests Test 04/08/25 16:25 Prothrombin Time 11.9 SECONDS (9.0-12.0) INR International Normalized Ratio 1.2 INR Activated Partial Thromboplast Time 31 SECONDS (22-32) Coagulation Comments Problem\Assessment\Plan Assessment A right-sided pneumonia, community-acquired Gram-positive Gram-negative mixed kassy Sepsis Chronic epilepsy in exacerbation History of developmental delay Right side encephalomalacia History of glioblastoma removal Metabolic encephalopathy Patient failed swallowing test Plan Started on tube feeding IV antibiotics, fluids keep patient well hydrated euvolemic SVN DuoNeb, incentive spirometry Additional lab work pending MRI, electroencephalography completed CT chest abdomen pelvis completed Seizure precautions On Keppra B.i.d. PT evaluation And treatment I reconciled home medications DVT gastropathy prophylaxis addressed Sepsis Screening Reassessment Date: Apr 10, 2025 Date of Service: Apr 10, 2025 Billing Provider: TEZ VILLAGRAN MD Common Visit Codes: [id number] INP/OBS CARE(HIGH) TEZ VILLAGRAN MD Apr 10, 2025 16:35
[2025-04-10] MEDS ORDERED: diphenhydrAMINE 25 MG/10 ML UD oral solution CORPAK PRN (16:48)
[2025-04-10] MEDS ORDERED: mag hydrox/Alum hydrox/simeth 30ml oral suspension CORPAK PRN (16:51)
[2025-04-10] MEDS ORDERED: magnesium hydroxide 30ml (MOM) UD suspension CORPAK PRN (16:52)
[2025-04-10] MEDS ORDERED: POTASSIUM CHLORIDE 20 MEQ/15 ML oral solution CORPAK PRN ×2 (16:53→16:54)
[2025-04-10 17:27] LABS: ABG BASE EXCESS -3.1 mmol/L (-2.0-3.0); ABG HCO3 19.4 mmol/L (21.0-28.0); ABG OXYGEN SATURATION 90.8 % (94.0-98.0); ABG PCO2 (T) 28.2 mmHg (35.0-48.0); ABG PH (T) 7.456 (7.350-7.450); ABG PO2 (T) 56.7 mmHg (83.0-108.0); ALLEN'S TEST Modified; FCOHb 1.1 % (0.5-1.5); FHHb 9.1 % (0.0-5.0); FIO2 21.0 mmHg/%; FMetHb 0.3 % (0.0-1.5); FO2Hb 89.5 % (94.0-98.0); MODE ROOM AIR; PATIENT TEMPERATURE 36.8; TOTAL HEMOGLOBIN 14.6 G/dl (13.5-17.5)
--- NOTE | 2025-04-10 17:44 | RADIOLOGY REPORT ---
CHEST RADIOGRAPH Indication: sob Technique: Single frontal view of the chest was obtained COMPARISON: CT CT CHEST ABDOMEN PELVIS on DOS: 04/08/25, DI CHEST,SINGLE VIEW on DOS: 04/08/25, CHEST,S SAHRA VIEW on DOS: 07/03/22, CHEST,SINGLE VIEW on DOS: 05/07/21 FINDINGS: Lines and Tubes: None Lungs: Clear Pleura: No effusion. No pneumothorax. Cardiomediastinal contours: Unremarkable Bones: Unremarkable IMPRESSION: 1. No acute disease.
[2025-04-10] MEDS: ringers solution, lacted 1,000 ML IV ONE (20:00)
[2025-04-10] MEDS: LidoCAINE 2% Topical Jelly 11mL syringe (UROJET) TOP ONE (21:40)
[2025-04-10] MEDS: docusate sodium 100mg/10ml UD cup CORPAK SCH (22:08)
[2025-04-10] MEDS: OLANZapine 5mg rapidly disint. tablet CORPAK SCH (22:09)
--- NOTE | 2025-04-10 23:57 | RADIOLOGY REPORT ---
ABDOMEN, (KUB) ONE VIEW REASON FOR EXAM: Corpak Placement COMPARISON: DI ABDOMEN,SINGLE VIEW(KUB) on DOS: 04/10/25, CT CT CHEST ABDOMEN PELVIS on DOS: 04/08/25 TECHNIQUE: A single view of the abdomen is obtained. FINDINGS: The lung apices are excluded from view. There is new airspace disease at the periphery of the left lung base. There is a weighted feeding tube with the tip projecting over the gastric fundus. IMPRESSION: Weighted feeding tube tip projects over the gastric fundus. New airspace disease at the periphery of the left lung base. This may represent atelectasis although focal pneumonitis is not ruled out.
[2025-04-11] VITALS (11 sets, daily range): BP systolic 134–154; BP diastolic 81–92; PULSE 85–105; RESP 16–25; TEMP 97.5–101.7; O2SAT 94–99
[2025-04-11 06:28] LABS: MEAN PLATELET VOLUME 7.6 FL (7.4-10.4); RED CELL DISTRIBUTION WIDTH 14.3 % (11.5-14.5)
[2025-04-11 06:50] LABS: CREATININE 0.75 MG/DL (0.60-1.10); TOTAL CARBON DIOXIDE 24.5 MMOL/L (24-32); eCRCL 119 ML/MIN; eGFR > 90 ML/MIN
[2025-04-11] MEDS: lansoprazole 15mg solutab CORPAK SCH (07:57)
[2025-04-11] MEDS: potassium Cl 40MEQ/1/2NS 520ml 520 ML IV PRN (10:29)
--- NOTE | 2025-04-11 13:46 | PROGRESS NOTE ---
Daily Progress Note Providers to CC Patient had Episode of agitation today ~, on oxygen 6 L nasal cannula Central Line/PICC still needed: No Mason-Non Protocol Mason Indications Met/Not Met: F/C Indications Not Met Antibiotic Timeout Antibiotic Ordered?: Yes MRSA Education MRSA Education Provided to pt: Yes Subjective As above Objective Vital Signs Date Time Temp Pulse Resp B/P (MAP) Pulse Ox O2 Delivery O2 Flow Rate FiO2 04/11/25 10:43 97.5 90 20 135/81 (99) 99 Nasal Cannula 6.0 04/11/25 07:50 60 Vital signs, stable ,afebrile. Pulse Oximetry reflects adequate oxygenation, on 6 L oxygen nasal cannula General: well developed, well nourished. Somnolent Skin: Warm, dry, no pallor, no rash or petechiae. HEENT: Atraumatic, normocephalic, EOMI, anicteric sclera B; pink conjunctiva; PERRLA, normal oropharynx, moist oral and nasal mucosa. Tympanic membrane , nose , throat clear. Neck: Trachea midline. Supple, full range of motion, no JVD, bruit , hepatojugular reflex , lymphadenopathy or masses, or other lesions Cardiac: Regular rhythm, regular rate no murmurs, rubs, or gallops. Normal S1 and S2, no S3 noticed. PMI is normal. Respiratory: Equal breath sounds bilaterally, no tachypnea; lungs clear to auscultation bilaterally, no wheezing ,rub or rales, or crackles. Chest wall is symmetric and without deformity. No signs of trauma. Chest wall is nontender. No signs of respiratory distress. Resonance is normal upon percussion bilaterally. Gastrointestinal: Abdomen symmetric, non-distended, soft, non-tender, normal bowel sounds x4 quadrant, normoactive, no hepatosplenomegaly , no masses , no bruit, no flank pain bilaterally. No voluntary guarding, rebound, or rigidity. No tenderness to percussion. No pulsatile masses. Equal femoral pulses. No Carrillo's sign or McBurney point tenderness. Back; no CVA tenderness bilaterally, no deformities. Neck and back are without deformity as well. No tenderness noted on palpation of the spinous processes. Spinous processes are midline. Cervical, thoracic, and lumbar paraspinal muscles are not tender and are without spasm. : normal external genitalia, without lesions, swelling, masses or tenderness. Musculoskeletal: Extremities, normal range of motion, non-tender, muscle strength 5/5 x 4. Negative Homans signs bilaterally on lower extremity. Distal pulses full symmetrical, no clubbing, cyanosis , edema. Neurological: Somnolent Psych: Somnolent Vascular: Good distal pulses, which are equal x4; capillary refill less than 2 seconds. Lymphatic, no lymphadenopathy. Result Diagram: 04/11/25 0556 04/11/25 0556 Coagulation Studies Laboratory Tests Test 04/08/25 16:25 Prothrombin Time 11.9 SECONDS (9.0-12.0) INR International Normalized Ratio 1.2 INR Activated Partial Thromboplast Time 31 SECONDS (22-32) Coagulation Comments Problem\Assessment\Plan Assessment A right-sided pneumonia, community-acquired Gram-positive Gram-negative mixed kassy Sepsis Chronic epilepsy in exacerbation History of developmental delay Right side encephalomalacia History of glioblastoma removal Metabolic encephalopathy Patient failed swallowing test Plan Started on tube feeding IV antibiotics, fluids keep patient well hydrated euvolemic SVN DuoNeb, incentive spirometry Additional lab work pending MRI, electroencephalography completed CT chest abdomen pelvis completed Seizure precautions On Keppra B.i.d. PT evaluation And treatment I reconciled home medications DVT gastropathy prophylaxis addressed Sepsis Screening Reassessment Date: Apr 11, 2025 Date of Service: Apr 11, 2025 Billing Provider: TEZ VILLAGRAN MD Common Visit Codes: [id number] INP/OBS CARE(HIGH) TEZ VILLAGRAN MD Apr 11, 2025 13:46
[2025-04-12] VITALS (10 sets, daily range): BP systolic 124–140; BP diastolic 74–86; PULSE 88–107; RESP 16–25; TEMP 98.5–102.6; O2SAT 90–99
[2025-04-12] MEDS ORDERED: POTASSIUM CHLORIDE 20 MEQ/15 ML oral solution PO PRN (03:55)
[2025-04-12] MEDS: POTASSIUM CHLORIDE 20 MEQ/15 ML oral solution PO PRN (04:23)
[2025-04-12 06:33] LABS: CREATININE 0.78 MG/DL (0.60-1.10); TOTAL CARBON DIOXIDE 24.9 MMOL/L (24-32); eCRCL 115 ML/MIN; eGFR > 90 ML/MIN
[2025-04-12 06:42] LABS: MEAN PLATELET VOLUME 8.1 FL (7.4-10.4); RED CELL DISTRIBUTION WIDTH 14.5 % (11.5-14.5)
--- NOTE | 2025-04-12 15:35 | RADIOLOGY REPORT ---
CHEST RADIOGRAPH Indication: Ac respiratory failure Technique: Single frontal view of the chest was obtained Comparison: DI CHEST,SINGLE VIEW on DOS: 04/10/25, CT CT CHEST ABDOMEN PELVIS on DOS: 04/08/25, DI CHES T,SINGLE VIEW on DOS: 04/08/25, CHEST,SINGLE VIEW on DOS: 07/03/22, CHEST,SINGLE VIEW on DOS: 05/07/21 FINDINGS: Lines and Tubes: Weighted feeding tube tip in the stomach Lungs: No focal consolidation. Pleura: No effusion. No pneumothorax. Cardiomediastinal contours: Unremarkable Bones: No acute osseous abnormality. IMPRESSION: No acute cardiopulmonary disease.
--- NOTE | 2025-04-12 19:30 | PROGRESS NOTE ---
Daily Progress Note Providers to CC ~ Antibiotic Timeout Antibiotic Ordered?: Yes Subjective The patient remains nonverbal which is not at his baseline- is on 6 L of venturi mask today of oxygen which is per respiratory therapy equal to approximately 2 L nasal cannula- the patient remains febrile I have ordered repeat blood culture and sputum culture and per neurologist Dr. Amin a lumbar puncture with culture Objective Vital Signs Date Time Temp Pulse Resp B/P (MAP) Pulse Ox O2 Delivery O2 Flow Rate FiO2 04/12/25 15:00 100.4 89 22 130/76 (94) 90 Venturi Mask 6.0 04/12/25 13:39 28 Result Diagram: 04/12/25 0541 04/12/25 0541 Gen. No respiratory distress however the patient is nonverbal at this time in does open eyes to verbal commands Lungs clear to ascultation bilaterally, no wheezes rales or rhonchi appreciated Heart normal sinus rhythm no murmurs rubs or clicks noted Abdomen soft nontender bowel sounds are normoactive Lower extremities no clubbing cyanosis, nor edema appreciated bilaterally Coagulation Studies Laboratory Tests Test 04/08/25 16:25 Prothrombin Time 11.9 SECONDS (9.0-12.0) INR International Normalized Ratio 1.2 INR Activated Partial Thromboplast Time 31 SECONDS (22-32) Coagulation Comments Problem\Assessment\Plan Assessment A right-sided pneumonia, community-acquired Gram-positive Gram-negative mixed kassy Sepsis Chronic epilepsy in exacerbation History of developmental delay Right side encephalomalacia History of glioblastoma removal Metabolic encephalopathy Patient failed swallowing test Plan Started on tube feeding IV antibiotics, fluids keep patient well hydrated euvolemic SVN DuoNeb, incentive spirometry Additional lab work pending MRI, electroencephalography completed CT chest abdomen pelvis completed Seizure precautions On Keppra B.i.d. PT evaluation And treatment I reconciled home medications DVT gastropathy prophylaxis addressed 04/12 the patient remains nonverbal in his spiking fevers as per recommendations of Dr. Amin neurologist I have ordered a lumbar puncture with culture and sensitivity in his associated labs as well as well as a sputum culture and blood cultures. # acute respiratory failure- respiratory therapy is following remains on IV Rocephin and IV azithromycin # nutrition-Corpak tube feedings are continued Date of Service: Apr 12, 2025 Billing Provider: CRISTINA RAJPUT DO Common Visit Codes: [id number] INP/OBS CARE(HIGH) CRISTINA RAJPUT DO Apr 12, 2025 19:30
[2025-04-13] VITALS (15 sets, daily range): BP systolic 113–136; BP diastolic 74–83; PULSE 91–127; RESP 16–27; TEMP 97.7–102.7; O2SAT 90–99
[2025-04-13 06:17] LABS: MEAN PLATELET VOLUME 8.2 FL (7.4-10.4); RED CELL DISTRIBUTION WIDTH 14.1 % (11.5-14.5)
[2025-04-13 06:21] LABS: CREATININE 0.77 MG/DL (0.60-1.10); TOTAL CARBON DIOXIDE 25.6 MMOL/L (24-32); eCRCL 116 ML/MIN; eGFR > 90 ML/MIN
[2025-04-13] MEDS: ipratropium/albuterol 3ml nebule NEB PRN (10:40)
[2025-04-13] MEDS: VANCOMYCIN 2GM/400ML H20 (PEG) 400 ML IV ONE (11:01)
--- NOTE | 2025-04-13 12:27 | PROGRESS NOTE ---
Daily Progress Note Providers to CC ~ Antibiotic Timeout Antibiotic Ordered?: Yes Subjective No acute events overnight. Patient examined at bedside. Patient is nonverbal at baseline. Tele sinus tach in 100s. afebrile today, labs notable for downtrending serum Na at 128. Lasix started, continued on IV NS. Patient had seizure that lasted approximately 10 seconds. Given 4mg IV Ativan and continued on IV Keppra. Objective Vital Signs Date Time Temp Pulse Resp B/P (MAP) Pulse Ox O2 Delivery O2 Flow Rate FiO2 04/13/25 10:56 127 22 Nasal Cannula 3.0 04/13/25 10:43 99 40 04/13/25 02:00 98.5 136/77 (96) Result Diagram: 04/13/25 0539 04/13/25 0539 Physical Exam General: Generalized weakness, nonverbal, NAD HEENT: Normocephalic, PERRLA Neck: Supple, trachea midline, no JVD Chest: Clear to auscultation bilaterally Cardiovascular: RRR, S1&S2 GI: Soft and nontender Extremities: No cyanosis/clubbing/or edema CHUTE WORKER: No focal deficits Musculoskeletal: No paraspinal muscle tenderness, no muscle spasm Skin: Warm and intact Coagulation Studies Laboratory Tests Test 04/08/25 16:25 Prothrombin Time 11.9 SECONDS (9.0-12.0) INR International Normalized Ratio 1.2 INR Activated Partial Thromboplast Time 31 SECONDS (22-32) Coagulation Comments Problem\Assessment\Plan Assessment & Plan Aspiration pneumonia- POA Sepsis 2/2 above Acute hypoxic respiratory failure 2/2 PNA- not POA Hx epilepsy Developmental delay Right side encephalomalacia History of glioblastoma removal Metabolic encephalopathy -continue tube feeding, abx, antiepileptic -04/13: seizure that lasted approximately 10 seconds. Given 4mg IV Ativan and continued on IV Keppra. Serum Na 128, start Lasix, continued on IV NS. Pending lumbar puncture analysis. Tele sinus in 100s. -follow osmolality studies Date of Service: Apr 13, 2025 Billing Provider: TAMMY HANSON Common Visit Codes: [id number] INP/OBS CARE(HIGH) TAMMY HANSON Apr 13, 2025 12:27
[2025-04-13 17:19] LABS: LEUKOCYTE ESTERASE ,URINE NEGATIVE (Neg); NITRITES, URINE NEGATIVE (Neg); OCCULT BLOOD,URINE TRACE-INTACT (Neg)
[2025-04-13] MEDS: vancomycin/NS 1 GM ADD-VANTAGE 250 ML X 1 DOSE IV SCH (17:22)
[2025-04-13 17:24] LABS: OSMOLALITY UA 664 MOSM/K (50-1400)
[2025-04-13 17:26] LABS: UA COLLECTION TYPE NON-SPECIFIED
[2025-04-13 17:27] LABS: MUCUS STRANDS NONE SEEN /LPF (Neg); SQUAMOUS EPITHELIAL CELL,UR NONE SEEN /LPF (FEW)
[2025-04-14] VITALS (15 sets, daily range): BP systolic 99–128; BP diastolic 68–85; PULSE 86–117; RESP 16–29; TEMP 97–101.4; O2SAT 90–97
[2025-04-14 07:25] LABS: MEAN PLATELET VOLUME 7.7 FL (7.4-10.4); RED CELL DISTRIBUTION WIDTH 14.1 % (11.5-14.5)
[2025-04-14 07:52] LABS: CREATININE 0.91 MG/DL (0.60-1.10); TOTAL CARBON DIOXIDE 21.4 MMOL/L (24-32); eCRCL 98 ML/MIN; eGFR 89 ML/MIN
--- NOTE | 2025-04-14 07:55 | [facility] NEURO CONSULT REPORT ---
[facility] Procedure Note [facility] Procedure Note Consult [facility] Note # Demographics Consult Type: Follow-Up Phone Call Patient Location: Inpatient First Name: Gilbert Last Name: Carlos Date of : 1975 Age: 49 Gender: Male Facility: [facility] Time of Initial Page (): 04/14/2025 07:29 First Contact with Site ( Time): 04/14/2025 07:29 # HPI History: Here with seizures. Yeteday Neuro recommended depakote and keppra. Three additional seizures since yesterday Has not received depakote 2/2 supply or admin route. Has fever and no known source. No meningismus. On CTX and vanc. An LP is planned. # Data Head CT: - no bleed - per radiologist read # Assessment Impression: - Seizure # Plan Diagnostic Test: - Lumbar puncture: cell count, protein, glucose, gram stain, and culture LP was planned. if fever of unknown source. Add acyclovir for empiric hsv coverage for now. Medication: keppra 1g bid add lacosamide 200mg iv x 1 then 100mg iv bid Other: - If patient has any neurological deterioration please call me back immediately - I have discussed my recommendations with the referring provider - seizure precautions Additional Recommendations: if additional seizure without return to baseline then continuous eeg is needed. # Logistics Attestation of consult completion: The patient is located at: [facility]. I performed this phone consultation from my offsite office Total time spent in telemedicine encounter: I spent 5 minutes in reviewing clinical data and/or imaging, obtaining history, communicating with the onsite care team, and in preparation of this report. # Demographics First Name: Gilbert Last Name: Carlos Facility: [facility] Electronically signed at 04/14/2025 07:55 () by Edin Olson MD Neuro Consult Order placed for: Yes LINA OLSON MD Apr 14, 2025 07:55
[2025-04-14] MEDS ORDERED: valproate sod inj 500 MG in normal saline 50ml IV soln 50 ML IV SCH (08:00)
[2025-04-14] MEDS: VANCOMYCIN LEVEL IV ONE (08:30)
[2025-04-14] MEDS: LACOSAMIDE 200mg/20ml inj. 200 MG in normal saline 100ml IV soln 100 ML IV ONE (10:20)
--- NOTE | 2025-04-14 10:36 | RADIOLOGY REPORT ---
CHEST RADIOGRAPH Indication:Possible Pneumonia Technique: Single frontal view of the chest was obtained Comparison: DI CHEST,SINGLE VIEW on DOS: 04/12/25 FINDINGS: Lines and Tubes: Weighted feeding tube tip in the stomach Lungs: No focal consolidation. Pleura: No effusion. No pneumothorax. Cardiomediastinal contours: Unremarkable Bones: No acute osseous abnormality. IMPRESSION: No acute cardiopulmonary disease.
[2025-04-14] MEDS: NORMAL SALINE IV SCH (10:57)
[2025-04-14] MEDS: ACYCLOVIR IV SCH (10:57)
--- NOTE | 2025-04-14 11:57 | PROGRESS NOTE ---
Daily Progress Note Providers to CC ~ Antibiotic Timeout Antibiotic Ordered?: Yes Subjective No acute events overnight. Patient examined at bedside. Patient is nonverbal at baseline. Tele sinus tach in 100s. fever today, labs unremarkable. Patient had episodes of grand mal seizure in am. Given 4mg IV Ativan and continued on IV Keppra. Case discussed with neurologist Dr. Butterfield with recommendation for lacosamide and acyclovir as an add-on therapy. CSF result pending. Objective Vital Signs Date Time Temp Pulse Resp B/P (MAP) Pulse Ox O2 Delivery O2 Flow Rate FiO2 04/14/25 08:12 107 22 Nasal Cannula 2.0 04/14/25 07:30 96 32 04/14/25 02:00 101.4 128/80 (96) Result Diagram: 04/14/2570304/14/25 07 Physical Exam General: Generalized weakness, nonverbal, NAD HEENT: Normocephalic, PERRLA Neck: Supple, trachea midline, no JVD Chest: Clear to auscultation bilaterally Cardiovascular: RRR, S1&S2 GI: Soft and nontender Extremities: No cyanosis/clubbing/or edema FRONTEND ENGINEER: No focal deficits Musculoskeletal: No paraspinal muscle tenderness, no muscle spasm Skin: Warm and intact Coagulation Studies Laboratory Tests Test 04/08/25 16:25 Prothrombin Time 11.9 SECONDS (9.0-12.0) INR International Normalized Ratio 1.2 INR Activated Partial Thromboplast Time 31 SECONDS (22-32) Coagulation Comments Problem\Assessment\Plan Assessment & Plan Aspiration pneumonia- POA Sepsis 2/2 above Acute hypoxic respiratory failure 2/2 PNA- not POA Hx epilepsy Developmental delay Right side encephalomalacia History of glioblastoma removal Metabolic encephalopathy -continue tube feeding, abx, IV antiepileptics -04/13: seizure that lasted approximately 10 seconds. Given 4mg IV Ativan and continued on IV Keppra. Serum Na 128, start Lasix, continued on IV NS. Pending lumbar puncture analysis. Tele sinus in 100s. -follow osmolality studies -04/14: episode of grand mal seizure in am, given 4mg IV Ativan and continued on IV Keppra. Case discussed with neurologist Dr. Butterfield with recommendation for lacosamide and acyclovir as an add-on therapy.CSF result pending. Date of Service: Apr 14, 2025 Billing Provider: TAMMY HANSON Common Visit Codes: [id number] INP/OBS CARE(HIGH) TAMMY HANSON Apr 14, 2025 11:57
[2025-04-14] MEDS: VANCOmycin 1250MG/NS 250ml Bag 250 ML IV SCH (19:23)
[2025-04-14] MEDS: LACOSAMIDE 200mg/20ml inj. 100 MG in normal saline 100ml IV soln 100 ML IV SCH (21:50)
[2025-04-15] VITALS (10 sets, daily range): BP systolic 94–128; BP diastolic 59–83; PULSE 86–105; RESP 16–25; TEMP 96.1–98; O2SAT 92–98
[2025-04-15] MEDS: mineral oil 133ml enema RC PRN (03:41)
[2025-04-15 06:10] LABS: MEAN PLATELET VOLUME 7.3 FL (7.4-10.4); RED CELL DISTRIBUTION WIDTH 14.3 % (11.5-14.5)
[2025-04-15 06:29] LABS: CREATININE 0.58 MG/DL (0.60-1.10); TOTAL CARBON DIOXIDE 28.1 MMOL/L (24-32); eCRCL 154 ML/MIN; eGFR > 90 ML/MIN
[2025-04-15 08:43] LABS: ABG BASE EXCESS 2.3 mmol/L (-2.0-3.0); ABG HCO3 27.5 mmol/L (21.0-28.0); ABG OXYGEN SATURATION 98.0 % (94.0-98.0); ABG PCO2 (T) 42.7 mmHg (35.0-48.0); ABG PH (T) 7.422 (7.350-7.450); ABG PO2 (T) 95.6 mmHg (83.0-108.0); ALLEN'S TEST Modified; FCOHb 0.6 % (0.5-1.5); FHHb 2.0 % (0.0-5.0); FIO2 44.0 mmHg/%; FLOW 6 L/min; FMetHb 0.3 % (0.0-1.5); FO2Hb 97.1 % (94.0-98.0); MODE NASAL CANNULA; PATIENT TEMPERATURE 35.9; TOTAL HEMOGLOBIN 13.6 G/dl (13.5-17.5)
--- NOTE | 2025-04-15 09:41 | RADIOLOGY REPORT ---
CHEST RADIOGRAPH Indication: hypoxia Technique: Single frontal view of the chest was obtained COMPARISON: DI CHEST,SINGLE VIEW on DOS: 04/14/25, DI CHEST,SINGLE VIEW on DOS: 04/12/25, DI CHEST,SING LE VIEW on DOS: 04/10/25, CT CT CHEST ABDOMEN PELVIS on DOS: 04/08/25, DI CHEST,SINGLE VIEW on DOS: 03/26 12/18 FINDINGS: Lines and Tubes: Weighted feeding tube in the stomach. Lungs: Left basilar subsegmental atelectasis. Pleura: No effusion. No pneumothorax. Cardiomediastinal contours: Unremarkable Bones: Unremarkable IMPRESSION: Weighted feeding tube in the stomach. Left basilar subsegmental atelectasis.
--- NOTE | 2025-04-15 12:13 | PROGRESS NOTE ---
Daily Progress Note Providers to CC ~ Antibiotic Timeout Antibiotic Ordered?: Yes Subjective No acute events overnight. Patient examined at bedside. Patient is nonverbal. Depressed mental status though no active seizure episode today. Tele sinus tach in 80s. Afebrile today, labs unremarkable. Patient had episodes of grand mal seizure in am. Given 4mg IV Ativan and continued on IV Keppra. Case discussed with teleneurologist on the phone with recommendation for increased dose of Keppra and continued lacosamide and acyclovir. CSF result pending. Objective Vital Signs Date Time Temp Pulse Resp B/P (MAP) Pulse Ox O2 Delivery O2 Flow Rate FiO2 04/15/25 09:08 10.0 04/15/25 08:57 86 24 Nasal Cannula 04/15/25 08:48 94 44 04/15/25 07:28 96.7 123/73 (90) Result Diagram: 04/15/25 0548 04/15/25 0548 Physical Exam General: Generalized weakness, nonverbal, NAD HEENT: Normocephalic, PERRLA Neck: Supple, trachea midline, no JVD Chest: Clear to auscultation bilaterally Cardiovascular: RRR, S1&S2 GI: Soft and nontender Extremities: No cyanosis/clubbing/or edema PRINCIPAL ASSOCIATE: No focal deficits Musculoskeletal: No paraspinal muscle tenderness, no muscle spasm Skin: Warm and intact Coagulation Studies Laboratory Tests Test 04/08/25 16:25 Prothrombin Time 11.9 SECONDS (9.0-12.0) INR International Normalized Ratio 1.2 INR Activated Partial Thromboplast Time 31 SECONDS (22-32) Coagulation Comments Problem\Assessment\Plan Assessment & Plan Aspiration pneumonia- POA Sepsis 2/2 above Acute hypoxic respiratory failure 2/2 PNA- not POA Status epilepticus Hx epilepsy Developmental delay Right side encephalomalacia History of glioblastoma removal Metabolic encephalopathy -continue tube feeding, abx, IV antiepileptics -04/13: seizure that lasted approximately 10 seconds. Given 4mg IV Ativan and continued on IV Keppra. Serum Na 128, start Lasix, continued on IV NS. Pending lumbar puncture analysis. Tele sinus in 100s. -follow osmolality studies -04/14: episode of grand mal seizure in am, given 4mg IV Ativan and continued on IV Keppra. Case discussed with neurologist Dr. Butterfield with recommendation for lacosamide and acyclovir as an add-on therapy.CSF result pending. Fever likely neurogenic. -04/15: Afebrile. Mental status still depressed, no active seizure episodes today. Case discussed with teleneurologist on the phone with recommendation for increased dose of Keppra and continued lacosamide and acyclovir. Tele sinus in 80s. Ordered EEG again. Date of Service: Apr 15, 2025 Billing Provider: TAMMY HANSON Common Visit Codes: [id number] INP/OBS CARE(HIGH) TAMMY HANSON Apr 15, 2025 12:13
--- NOTE | 2025-04-15 13:00 | BLUE SKY NEURO CONSULT REPORT ---
[facility] Procedure Note [facility] Procedure Note Consult [facility] Note # Demographics Consult Type: Follow-Up Phone Call Patient Location: Inpatient First Name: Carlos Last Name: naga Date of : 1975 Age: 49 Gender: Male Facility: [facility] Time of Initial Page (): 04/15/2025 11:11 First Contact with Site (): 04/15/2025 11:11 Phone Only Consult: 49 y/o M with a PMHx of GBM, seizure disorder on Keppra 1000mg in AM, 1500mg in PM, Depakote 500mg in AM and 1000mg in PM as per H and P, HTN, R sided encephalomalacia, developmental delay presented with AMS, fever, cough. He was evaluated by Neurology and continued on Keppra and Depakote however as per the notes, Depakote could not be given due to shortage. He has had multiple generalized tonic clonic seizures over the past few days. Dr. Butterfield evaluated him yesterday and recommended Keppra and loading with Vimpat. He is currently on Keppra 1gm BID and Vimpat 100mg BID. He has not had any seizures today but remains largely altered. He was also started on Acyclovir yesterday for possible encephalitis and an LP is pending. He is still having fevers. Phone Agreement: - phone consult deemed mutually sufficient for patient care # Assessment Impression: - Status Epilepticus # Plan Diagnostic Test: - EEG - Lumbar puncture: cell count, protein, glucose, gram stain, and culture would repeat to evaluate for subclinical seizures vs. post ictal state Medication: Continue Vimpat 100mg BID Increase Keppra 1500mg BID Continue Acyclovir Other: - If patient has any neurological deterioration please call me back immediately - seizure precautions - telemetry monitoring - I have discussed my recommendations with the referring provider Disposition: continue admission # Logistics Attestation of consult completion: The patient is located at: [facility]. I performed this phone consultation from my offsite office Total time spent in telemedicine encounter: I spent 25 minutes in reviewing clinical data and/or imaging, obtaining history, communicating with the onsite care team, and in preparation of this report. # Demographics First Name: Carlos Last Name: naga Facility: [facility] Electronically signed at 04/15/2025 13:00 ([place] Time) by Flores Armando MD Neuro Consult Order placed for: Yes FLORES ARMANDO MD Apr 15, 2025 13:00
[2025-04-15] MEDS: VANCOMYCIN LEVEL IV ONE (17:00)
[2025-04-15] MEDS: levetiracetamNACL 1500mg/100mL 100 ML IV SCH (21:28)
[2025-04-16] VITALS (14 sets, daily range): BP systolic 112–132; BP diastolic 66–85; PULSE 68–93; RESP 17–22; TEMP 97.4–98.7; O2SAT 92–98
[2025-04-16 07:46] LABS: MEAN PLATELET VOLUME 7.8 FL (7.4-10.4); RED CELL DISTRIBUTION WIDTH 14.7 % (11.5-14.5)
[2025-04-16 08:28] LABS: CREATININE 0.70 MG/DL (0.60-1.10); TOTAL CARBON DIOXIDE 28.3 MMOL/L (24-32); eCRCL 128 ML/MIN; eGFR > 90 ML/MIN
--- NOTE | 2025-04-16 18:32 | RADIOLOGY REPORT ---
Procedure: DI ABDOMEN,SINGLE VIEW([facility]) [facility] Study Date and Requested Time: 04/16/2025 05:38 PM Technique: Single view of the abdomen is available for evaluation. History: corpak ng placement verification Comparison: DI ABDOMEN,SINGLE VIEW(KUB) on DOS: 04/10/25, DI ABDOMEN,SINGLE VIEW(KUB) on DOS: 04/10/25, CT CT CHEST ABDOMEN PELVIS on DOS: 04/08/25 Findings/ Impression: Enteric tube is in satisfactory position. Nonspecific bowel gas pattern. No evidence of bowel obstruction or ileus. No abnormal calcifications are noted. The visualized lung bases are clear. No evidence of acute bony abnormalities.
--- NOTE | 2025-04-16 18:40 | PROGRESS NOTE ---
Daily Progress Note Providers to CC ~ Antibiotic Timeout Antibiotic Ordered?: Yes Subjective No acute events overnight. Patient examined at bedside. Patient is nonverbal. Depressed mental status and no active seizure episode today. Vss, labs unremarkable. Continued on Keppra, continued lacosamide and acyclovir. CSF result pending. Objective Vital Signs Date Time Temp Pulse Resp B/P (MAP) Pulse Ox O2 Delivery O2 Flow Rate FiO2 04/16/25 16:31 97 Nasal Cannula* 3 32 04/16/25 15:00 98.7 86 19 118/75 (89) Result Diagram: 04/16/2562504/16/25625 Physical Exam General: Generalized weakness, nonverbal, NAD HEENT: Normocephalic, PERRLA Neck: Supple, trachea midline, no JVD Chest: Clear to auscultation bilaterally Cardiovascular: RRR, S1&S2 GI: Soft and nontender Extremities: No cyanosis/clubbing/or edema ASSISTANT OFFICE MANAGER: No focal deficits Musculoskeletal: No paraspinal muscle tenderness, no muscle spasm Skin: Warm and intact Coagulation Studies Laboratory Tests Test 04/08/25 16:25 Prothrombin Time 11.9 SECONDS (9.0-12.0) INR International Normalized Ratio 1.2 INR Activated Partial Thromboplast Time 31 SECONDS (22-32) Coagulation Comments Problem\Assessment\Plan Assessment & Plan Aspiration pneumonia- POA Sepsis 2/2 above Acute hypoxic respiratory failure 2/2 PNA- not POA Status epilepticus Hx epilepsy Developmental delay Right side encephalomalacia History of glioblastoma removal Metabolic encephalopathy -continue tube feeding, abx, IV antiepileptics -04/13: seizure that lasted approximately 10 seconds. Given 4mg IV Ativan and continued on IV Keppra. Serum Na 128, start Lasix, continued on IV NS. Pending lumbar puncture analysis. Tele sinus in 100s. -follow osmolality studies -04/14: episode of grand mal seizure in am, given 4mg IV Ativan and continued on IV Keppra. Case discussed with neurologist Dr. Butterfield with recommendation for lacosamide and acyclovir as an add-on therapy.CSF result pending. Fever likely neurogenic. -04/15: Afebrile. Mental status still depressed, no active seizure episodes today. Case discussed with teleneurologist on the phone with recommendation for increased dose of Keppra and continued lacosamide and acyclovir. Tele sinus in 80s. Ordered EEG again. -04/16: persistent depressed mentation, neurology consult requested Date of Service: Apr 16, 2025 Billing Provider: TAMMY HANSON Common Visit Codes: [id number] INP/OBS CARE(HIGH) TAMMY HANSONP Apr 16, 2025 18:40
--- NOTE | 2025-04-16 20:15 | BLUE SKY NEURO CONSULT REPORT ---
[facility] Procedure Note [facility] Procedure Note Consult [facility] Note # Demographics Consult Type: Follow-Up Phone Call Patient Location: Inpatient First Name: Carlos Last Name: Gilbert Date of : 1975 Age: 49 Gender: Male Facility: [facility] Time of Initial Page (): 04/16/2025 18:56 First Contact with Site (): 04/16/2025 18:56 Phone Only Consult: 49 y/o M with a PMHx of GBM, seizure disorder on Keppra 1000mg in AM, 1500mg in PM, Depakote 500mg in AM and 1000mg in PM as per H and P, HTN, R sided encephalomalacia, developmental delay presented with AMS, fever, cough. He was evaluated by Neurology and continued on Keppra and Depakote however as per the notes, Depakote could not be given due to shortage. He has had multiple generalized tonic clonic seizures over the past few days. Dr. Butterfield evaluated him yesterday and recommended Keppra and loading with Vimpat. He is currently on Keppra 1gm BID and Vimpat 100mg BID. He has not had any seizures for the last two days but remains largely altered. He was also started on Acyclovir for possible encephalitis and an LP is pending. He is now afebrile. Repeat EEG still pending. Phone Agreement: - phone consult deemed mutually sufficient for patient care # Assessment Impression: - Seizure # Plan Imaging: (urgency: routine): - MRI Brain with AND without contrast Diagnostic Test: - Lumbar puncture: cell count, protein, glucose, gram stain, and culture - EEG Medication: Continue Vimpat and Keppra Continue Acyclovir Other: - If patient has any neurological deterioration please call me back immediately # Logistics Attestation of consult completion: The patient is located at: [facility]. I performed this phone consultation from my offsite office # Demographics First Name: Carlos Last Name: Gilbert Facility: [facility] Electronically signed at 04/16/2025 20:13 () by Froylan Armando MD Neuro Consult Order placed for: Yes FROYLAN ARMANDO MD Apr 16, 2025 20:15
--- NOTE | 2025-04-16 22:08 | RADIOLOGY REPORT ---
Exam: DI ABDOMEN,SINGLE VIEW(KUB) Indication: corpak NG tube placement Comparison: DI ABDOMEN,SINGLE VIEW(KUB) on DOS: 04/16/25, DI ABDOMEN,SINGLE VIEW(KUB) on DOS: 04/10/25, DI ABDOMEN,SINGLE VIEW(KUB) on DOS: 04/10/25, CT CT CHEST ABDOMEN PELVIS on DOS: 04/08/25 Technique: 1 radiographic views of the abdomen. Findings: Intervally exchange enteric tube, tip overlying the left upper quadrant oriented towards the gastroes ophageal junction. Nonobstructive pattern of imaged bowel loops. No obvious abnormality of the image d lower chest or osseous structures. Impression: 1. Enteric tube tip projects within the stomach, although oriented superiorly.
[2025-04-17] VITALS (12 sets, daily range): BP systolic 119–143; BP diastolic 63–83; PULSE 71–103; RESP 18–24; TEMP 97.4–99.2; O2SAT 94–98
[2025-04-17 06:41] LABS: MEAN PLATELET VOLUME 7.0 FL (7.4-10.4); RED CELL DISTRIBUTION WIDTH 14.3 % (11.5-14.5)
[2025-04-17 06:52] LABS: CREATININE 0.59 MG/DL (0.60-1.10); TOTAL CARBON DIOXIDE 29.5 MMOL/L (24-32); eCRCL 151 ML/MIN; eGFR > 90 ML/MIN
[2025-04-17 07:15] LABS: HSV 1 PCR Negative (Negative); HSV 2 PCR Negative (Negative)
[2025-04-17] MEDS ORDERED: POTASSIUM CHLORIDE 20 MEQ/15 ML oral solution CORPAK PRN (15:51)
--- NOTE | 2025-04-17 17:01 | RADIOLOGY REPORT ---
PROCEDURE: MR MRI HEAD Indication: with without contrast COMPARISON: MR MRI HEAD on DOS: 04/09/25 TECHNIQUE: Multiplanar multisequence images of the brain are obtained. FINDINGS: There is no abnormal diffusion restriction. Right frontotemporal encephalomalacia. Moderate global ce rebral volume loss. Moderate periventricular and subcortical white matter T2 and FLAIR hyperintense c hanges. There is no intracranial hemorrhage. No extra-axial fluid collection, mass effect or midline shift. The ventricles are midline and normal in size. The cisterns are patent. Normal intracranial fl ow voids are preserved. Right frontal craniotomy. Bilateral mastoid effusions. Mucosal thickening ethmoids, right maxillary sinus The visualized orbits are unremarkable. IMPRESSION: No acute cerebrovascular ischemia. Right frontotemporal encephalomalacia. Moderate chronic microvascular ischemic changes. Bilateral mastoid effusions.
[2025-04-17] MEDS: GADOTERATE MEGLUMINE 7.5 MMOL/15 ML VIAL IV ONE (17:31)
--- NOTE | 2025-04-17 17:33 | PROGRESS NOTE ---
Daily Progress Note Providers to CC ~ Antibiotic Timeout Antibiotic Ordered?: Yes Subjective No acute events overnight. Patient examined at bedside. Patient is nonverbal. Mental status seems to be slightly better today and no active seizure episode today. Vss, afebrile, labs unremarkable. Continued on Keppra, continued lacosamide. CSF negative herpes. MRI head w&wo contrast shows no acute cerebrovascular ischemia, right frontotemporal encephalomalacia. Objective Vital Signs Date Time Temp Pulse Resp B/P (MAP) Pulse Ox O2 Delivery O2 Flow Rate FiO2 04/17/25 16:09 98.7 82 19 132/80 (97) 95 Nasal Cannula 2.0 04/17/25 11:48 32 Result Diagram: 04/17/2511 04/17/25 0611 Physical Exam General: Generalized weakness, awake, nonverbal, NAD HEENT: Normocephalic, PERRLA Neck: Supple, trachea midline, no JVD Chest: Clear to auscultation bilaterally Cardiovascular: RRR, S1&S2 GI: Soft and nontender Extremities: No cyanosis/clubbing/or edema DAIRY TECHNICIAN: No focal deficits Musculoskeletal: No paraspinal muscle tenderness, no muscle spasm Skin: Warm and intact Coagulation Studies Laboratory Tests Test 04/08/25 16:25 Prothrombin Time 11.9 SECONDS (9.0-12.0) INR International Normalized Ratio 1.2 INR Activated Partial Thromboplast Time 31 SECONDS (22-32) Coagulation Comments Problem\Assessment\Plan Assessment & Plan Aspiration pneumonia- POA Sepsis 2/2 above Acute hypoxic respiratory failure 2/2 PNA- not POA Status epilepticus Hx epilepsy Developmental delay Right side encephalomalacia History of glioblastoma removal Metabolic encephalopathy -continue tube feeding, abx, IV antiepileptics -04/13: seizure that lasted approximately 10 seconds. Given 4mg IV Ativan and continued on IV Keppra. Serum Na 128, start Lasix, continued on IV NS. Pending lumbar puncture analysis. Tele sinus in 100s. -follow osmolality studies -04/14: episode of grand mal seizure in am, given 4mg IV Ativan and continued on IV Keppra. Case discussed with neurologist Dr. Butterfield with recommendation for lacosamide and acyclovir as an add-on therapy.CSF result pending. Fever likely neurogenic. -04/15: Afebrile. Mental status still depressed, no active seizure episodes today. Case discussed with teleneurologist on the phone with recommendation for increased dose of Keppra and continued lacosamide and acyclovir. Tele sinus in 80s. Ordered EEG again. -04/16: persistent depressed mentation, neurology consult requested -04/17: afebrile, MRI head w&wo contrast shows no acute cerebrovascular ischemia, right frontotemporal encephalomalacia; EEG not available Date of Service: Apr 17, 2025 Billing Provider: TAMMY HANSON Common Visit Codes: [id number] INP/OBS CARE(HIGH) TAMMY HANSON Apr 17, 2025 17:33
[2025-04-18] VITALS (13 sets, daily range): BP systolic 117–133; BP diastolic 68–87; PULSE 63–94; RESP 16–24; TEMP 97.1–99.5; O2SAT 93–97
[2025-04-18 06:30] LABS: MEAN PLATELET VOLUME 7.2 FL (7.4-10.4); RED CELL DISTRIBUTION WIDTH 14.5 % (11.5-14.5)
[2025-04-18 07:10] LABS: CREATININE 0.82 MG/DL (0.60-1.10); TOTAL CARBON DIOXIDE 29.0 MMOL/L (24-32); eCRCL 109 ML/MIN; eGFR > 90 ML/MIN
--- NOTE | 2025-04-18 11:25 | PROGRESS NOTE ---
Daily Progress Note Providers to CC ~ Antibiotic Timeout Antibiotic Ordered?: Yes Subjective No acute events overnight. Patient examined at bedside. Patient is nonverbal. Mental status seems to be slightly better today and no active seizure episode today. Likely post-ictal confusion. Vss, afebrile, labs unremarkable. Continued on Keppra, and lacosamide. CSF negative herpes. MRI head w&wo contrast shows no acute cerebrovascular ischemia, right frontotemporal encephalomalacia. Pending EEG and lumbar puncture as per neurologist recommendation. Pending transfer. Objective Vital Signs Date Time Temp Pulse Resp B/P (MAP) Pulse Ox O2 Delivery O2 Flow Rate FiO2 04/18/25 08:03 80 20 97 Nasal Cannula* 2 28 04/18/25 06:00 99.0 121/71 (88) Result Diagram: 04/18/25 0547 04/18/25 0547 Physical Exam General: Generalized weakness, awake, nonverbal, NAD HEENT: Normocephalic, PERRLA Neck: Supple, trachea midline, no JVD Chest: Clear to auscultation bilaterally Cardiovascular: RRR, S1&S2 GI: Soft and nontender Extremities: No cyanosis/clubbing/or edema MUSIC PASTOR: No focal deficits Musculoskeletal: No paraspinal muscle tenderness, no muscle spasm Skin: Warm and intact Coagulation Studies Laboratory Tests Test 04/08/25 16:25 Prothrombin Time 11.9 SECONDS (9.0-12.0) INR International Normalized Ratio 1.2 INR Activated Partial Thromboplast Time 31 SECONDS (22-32) Coagulation Comments Problem\Assessment\Plan Assessment & Plan Aspiration pneumonia- POA Sepsis 2/2 above Acute hypoxic respiratory failure 2/2 PNA- not POA Status epilepticus Hx epilepsy Developmental delay Right side encephalomalacia History of glioblastoma removal Metabolic encephalopathy -continue tube feeding, abx, IV antiepileptics -04/13: seizure that lasted approximately 10 seconds. Given 4mg IV Ativan and continued on IV Keppra. Serum Na 128, start Lasix, continued on IV NS. Pending lumbar puncture analysis. Tele sinus in 100s. -follow osmolality studies -04/14: episode of grand mal seizure in am, given 4mg IV Ativan and continued on IV Keppra. Case discussed with neurologist Dr. Butterfield with recommendation for lacosamide and acyclovir as an add-on therapy.CSF result pending. Fever likely neurogenic. -04/15: Afebrile. Mental status still depressed, no active seizure episodes today. Case discussed with teleneurologist on the phone with recommendation for increased dose of Keppra and continued lacosamide and acyclovir. Tele sinus in 80s. Ordered EEG again. -04/16: persistent depressed mentation, neurology consult requested -04/17: afebrile, MRI head w&wo contrast shows no acute cerebrovascular ischemia, right frontotemporal encephalomalacia; pending lumbar puncture and EEG -04/18: Likely post-ictal confusion, pending lumbar puncture and EEG per neurologist recommendation, pending transfer Date of Service: Apr 18, 2025 Billing Provider: TAMMY HANSON Common Visit Codes: [id number] INP/OBS CARE(HIGH) TAMMY HANSON Apr 18, 2025 11:25
[2025-04-19] VITALS (11 sets, daily range): BP systolic 114–139; BP diastolic 70–95; PULSE 70–96; RESP 12–21; TEMP 97–98.4; O2SAT 91–99
[2025-04-19 07:02] LABS: MEAN PLATELET VOLUME 7.2 FL (7.4-10.4); RED CELL DISTRIBUTION WIDTH 14.7 % (11.5-14.5)
[2025-04-19 07:26] LABS: CREATININE 0.68 MG/DL (0.60-1.10); TOTAL CARBON DIOXIDE 27.7 MMOL/L (24-32); eCRCL 131 ML/MIN; eGFR > 90 ML/MIN
[2025-04-19] MEDS ORDERED: glucagon, human recombinant 1mg kit SUBCUT PRN (10:40)
[2025-04-19] MEDS ORDERED: dextrose 50%-water 50ml dispensing syringe IV PRN ×2 (10:40)
[2025-04-19] MEDS ORDERED: DEXTROSE 15 GM of carb/4 tabs (each vial/BOTTLE has 4 tablets) PO PRN ×2 (10:40)
[2025-04-19] MEDS: INSULIN LISPRO 100 UNIT/ML INSULN.PEN MULTI-DOSE SQ SCH (12:34)
--- NOTE | 2025-04-19 13:24 | PROGRESS NOTE ---
Daily Progress Note Providers to CC ~ Antibiotic Timeout Antibiotic Ordered?: Yes Subjective No acute events overnight. Patient examined at bedside. Patient is nonverbal. Mental status seems to be slightly better today and no active seizure episode today. Likely post-ictal confusion. Vss, afebrile, labs unremarkable. Continued on Keppra, and lacosamide. CSF negative herpes. MRI head w&wo contrast shows no acute cerebrovascular ischemia, right frontotemporal encephalomalacia. Pending EEG and lumbar puncture as per neurologist recommendation. Pending transfer. Objective Vital Signs Date Time Temp Pulse Resp B/P (MAP) Pulse Ox O2 Delivery O2 Flow Rate FiO2 04/19/25 11:18 97.0 85 16 139/95 (110) 98 Nasal Cannula 2.0 28 Result Diagram: 04/19/2561904/19/25619 Physical Exam General: Generalized weakness, awake, nonverbal, NAD HEENT: Normocephalic, PERRLA Neck: Supple, trachea midline, no JVD Chest: Clear to auscultation bilaterally Cardiovascular: RRR, S1&S2 GI: Soft and nontender Extremities: No cyanosis/clubbing/or edema CONVENTION SERVICES DIRECTOR: No focal deficits Musculoskeletal: No paraspinal muscle tenderness, no muscle spasm Skin: Warm and intact Coagulation Studies Laboratory Tests Test 04/08/25 16:25 Prothrombin Time 11.9 SECONDS (9.0-12.0) INR International Normalized Ratio 1.2 INR Activated Partial Thromboplast Time 31 SECONDS (22-32) Coagulation Comments Problem\Assessment\Plan Assessment & Plan Aspiration pneumonia- POA Sepsis 2/2 above Acute hypoxic respiratory failure 2/2 PNA- not POA Status epilepticus Hx epilepsy Developmental delay Right side encephalomalacia History of glioblastoma removal Metabolic encephalopathy -continue tube feeding, abx, IV antiepileptics -04/13: seizure that lasted approximately 10 seconds. Given 4mg IV Ativan and continued on IV Keppra. Serum Na 128, start Lasix, continued on IV NS. Pending lumbar puncture analysis. Tele sinus in 100s. -follow osmolality studies -04/14: episode of grand mal seizure in am, given 4mg IV Ativan and continued on IV Keppra. Case discussed with neurologist Dr. Butterfield with recommendation for lacosamide and acyclovir as an add-on therapy.CSF result pending. Fever likely neurogenic. -04/15: Afebrile. Mental status still depressed, no active seizure episodes today. Case discussed with teleneurologist on the phone with recommendation for increased dose of Keppra and continued lacosamide and acyclovir. Tele sinus in 80s. Ordered EEG again. -04/16: persistent depressed mentation, neurology consult requested -04/17: afebrile, MRI head w&wo contrast shows no acute cerebrovascular ischemia, right frontotemporal encephalomalacia; pending lumbar puncture and EEG -04/18: Likely post-ictal confusion, pending lumbar puncture and EEG per neurologist recommendation, pending transfer -04/19: pending transfer for lumbar puncture per neurologist recommendation Date of Service: Apr 19, 2025 Billing Provider: TAMMY HANSON Common Visit Codes: [id number] INP/OBS CARE(HIGH) TAMMY HANSON Apr 19, 2025 13:23
--- NOTE | 2025-04-19 21:46 | [facility] CONSULT REPORT ---
[facility] Procedure Note [facility] Procedure Note Consult [facility] Note # Demographics Type of EEG Read: - Routine EEG - video Patient Location: Inpatient First Name: Carlos Last Name: Gilbert Date of : 1975 Age: 49 Gender: Male Facility: [facility] Time of Initial Page (): 04/19/2025 07:53 First Contact with Site (): 04/19/2025 07:54 # EEG Interpretation Start Time of EEG Read (): 04/19/2025 08:09 Stop Time of EEG Read (): 04/19/2025 08:30 Duration: 0h 21m Technical Details: - The EEG electrodes were placed using the standard International 10-20 system of electrode placement. Video and an accessory EKG lead were used during the course of this study. - This study was recorded using the [employer] EEG software Indication: - altered mental status # Description Photic Stimulation: NOT Performed Hyperventilation: NOT performed Phases Captured: - awake Symmetry: symmetric Posterior Dominant Rhythm: The record is continuous, of normal amplitude and bilaterally symmetrical. There was no clear posterior dominant rhythm captured. There is a moderate amount of diffuse low amplitude 15-25 Hz beta activity and moderate amount of 4-7 Hz theta activity. Occasional <4 Hz delta activity is present. With drowsiness, there is attenuation of the background alpha activity and a shift to slower frequencies. Amplitude: normal Reactivity: unclear Variability: yes Continuity: continuous EKG: artifactual # Abnormalities Epileptiform Abnormalities: - NOT present Focal Slowing: no Seizure: - NOT present # Impression Impression: abnormal 1. Diffuse Slowing # Clinical Correlation Clinical Correlation: 1. Diffuse slowing is non-specific and may be seen in the setting of diffuse cerebral dysfunction; such as toxic/metabolic/infectious encephalopathy or heavily sedating medication use. # Demographics First Name: Carlos Last Name: Gilbert Facility: [facility] Neuro Consult Order placed for: Yes MAUREEN FLEMING MD Apr 19, 2025 21:46
[2025-04-20] VITALS (9 sets, daily range): BP systolic 114–126; BP diastolic 71–79; PULSE 77–105; RESP 15–22; TEMP 96.9–98; O2SAT 92–98
--- NOTE | 2025-04-20 01:17 | RADIOLOGY REPORT ---
EXAMINATION: Abdominal x-rays, 2 views CLINICAL HISTORY: verify ng tube placement COMPARISON: DI ABDOMEN,SINGLE VIEW(KUB) on DOS: 04/16/25 Findings and impression: Distal aspect of the enteric tube terminates below the level of the diaphragm in the expected locatio n of the stomach. As before, the tip is oriented superiorly towards the gastroesophageal junction. HS:Y
[2025-04-20 06:10] LABS: MEAN PLATELET VOLUME 7.1 FL (7.4-10.4); RED CELL DISTRIBUTION WIDTH 14.6 % (11.5-14.5)
[2025-04-20 06:28] LABS: CREATININE 0.57 MG/DL (0.60-1.10); TOTAL CARBON DIOXIDE 26.0 MMOL/L (24-32); eCRCL 157 ML/MIN; eGFR > 90 ML/MIN
--- NOTE | 2025-04-20 19:16 | PROGRESS NOTE ---
Daily Progress Note Providers to CC ~ Antibiotic Timeout Antibiotic Ordered?: Yes Subjective Was seen in presence of nursing staff today while gurgling sounds over upper respiratory tract noticed but his lung sounds is clear bilaterally. Patient is awake but does not talk much waved his hand before I left. His last EEGs okay. Objective Vital Signs Date Time Temp Pulse Resp B/P (MAP) Pulse Ox O2 Delivery O2 Flow Rate FiO2 04/20/25 16:40 86 18 94 Nasal Cannula* 1 24 04/20/25 15:00 97.5 116/77 (90) Result Diagram: 04/20/25 0522 04/20/25 05 General-patient not in any acute distress, awake chronically ill-appearing HEENT-atraumatic normocephalic, neck supple without elevated JVD, no thyromegaly or carotid bruit. No lymphadenopathy bilaterally. Eyes-no icterus or pallor seen in eyes Chest-clear to auscultation bilaterally, breathing nonlabored no tachypnea, no wheezing, no crepitation, no crackles. Mild gurgling sounds noticed from upper airway Heart-S1-S2 normal, regular heart rate no murmur Abdomen bowel sounds positive on auscultation, soft nondistended nontender no guarding, no rigidity Skin no active skin rash Neurology-grossly intact, nonfocal awake not able to communicate his needs Extremity- no pedal edema Coagulation Studies Laboratory Tests Test 04/08/25 16:25 Prothrombin Time 11.9 SECONDS (9.0-12.0) INR International Normalized Ratio 1.2 INR Activated Partial Thromboplast Time 31 SECONDS (22-32) Coagulation Comments Problem\Assessment\Plan Assessment & Plan Aspiration pneumonia- POA Sepsis 2/2 above Acute hypoxic respiratory failure 2/2 PNA- not POA Status epilepticus Hx epilepsy Developmental delay Right side encephalomalacia History of glioblastoma removal Metabolic encephalopathy -continue tube feeding, abx, IV antiepileptics -04/13: seizure that lasted approximately 10 seconds. Given 4mg IV Ativan and continued on IV Keppra. Serum Na 128, start Lasix, continued on IV NS. Pending lumbar puncture analysis. Tele sinus in 100s. -follow osmolality studies -04/14: episode of grand mal seizure in am, given 4mg IV Ativan and continued on IV Keppra. Case discussed with neurologist Dr. Butterfield with recommendation for lacosamide and acyclovir as an add-on therapy.CSF result pending. Fever likely neurogenic. -04/15: Afebrile. Mental status still depressed, no active seizure episodes today. Case discussed with teleneurologist on the phone with recommendation for increased dose of Keppra and continued lacosamide and acyclovir. Tele sinus in 80s. Ordered EEG again. -04/16: persistent depressed mentation, neurology consult requested -04/17: afebrile, MRI head w&wo contrast shows no acute cerebrovascular ischemia, right frontotemporal encephalomalacia; pending lumbar puncture and EEG -04/18: Likely post-ictal confusion, pending lumbar puncture and EEG per neurologist recommendation, pending transfer -04/19: pending transfer for lumbar puncture per neurologist recommendation 04/19/25- patient is currently afebrile last fever he had was on April 18, 2025. EEG normal.He was also started on Acyclovir for possible encephalitis and an LP is pending. Patient's current condition is guarded we will continue to follow patient in a.m. Date of Service: Apr 20, 2025 Billing Provider: SHAUNA VAZQUEZ MD Common Visit Codes: [id number] INP/OBS CARE(HIGH) SHAUNA VAZQUEZ MD Apr 20, 2025 19:16
[2025-04-21] MEDS: VANCOMYCIN LEVEL IV ONE (00:30)
[2025-04-21 02:00] VITALS: BP 117/78; PULSE 83; RESP 18; TEMP 98.7; O2SAT 92
[2025-04-21 06:00] VITALS: PULSE 72; RESP 19; TEMP 97.8; O2SAT 98
[2025-04-21 07:06] LABS: MEAN PLATELET VOLUME 6.9 FL (7.4-10.4); RED CELL DISTRIBUTION WIDTH 14.4 % (11.5-14.5)
[2025-04-21 07:31] LABS: CREATININE 0.69 MG/DL (0.60-1.10); TOTAL CARBON DIOXIDE 27.3 MMOL/L (24-32); eCRCL 130 ML/MIN; eGFR > 90 ML/MIN
[2025-04-21 15:00] VITALS: BP 118/70; PULSE 72; RESP 18; TEMP 97.2; O2SAT 97
[2025-04-21] MEDS: insulin regular, human U-100 10ml vial - multi-dose SQ SCH (16:55)
[2025-04-21 18:00] VITALS: BP 115/75; PULSE 83; RESP 19; TEMP 97.4; O2SAT 94
--- NOTE | 2025-04-21 19:40 | PROGRESS NOTE ---
Daily Progress Note Providers to CC ~ Antibiotic Timeout Antibiotic Ordered?: No Subjective The patient is now starting to answer questions in one word responses. Status post lumbar puncture today at [facility] awaiting the results. Objective Vital Signs Date Time Temp Pulse Resp B/P (MAP) Pulse Ox O2 Delivery O2 Flow Rate FiO2 04/21/25 15:00 97.2 72 18 118/70 (86) 97 Nasal Cannula 2.0 04/21/25 08:00 28 Result Diagram: 04/21/25 0637 04/21/25 0637 Gen. No respiratory distress alert and appears oriented Lungs clear to ascultation bilaterally, no wheezes rales or rhonchi appreciated Heart normal sinus rhythm no murmurs rubs or clicks noted Abdomen soft nontender bowel sounds are normoactive Lower extremities no clubbing cyanosis, nor edema appreciated bilaterally Coagulation Studies Laboratory Tests Test 04/08/25 16:25 Prothrombin Time 11.9 SECONDS (9.0-12.0) INR International Normalized Ratio 1.2 INR Activated Partial Thromboplast Time 31 SECONDS (22-32) Coagulation Comments Problem\Assessment\Plan Assessment & Plan Aspiration pneumonia- POA Sepsis 2/2 above Acute hypoxic respiratory failure 2/2 PNA- not POA Status epilepticus Hx epilepsy Developmental delay Right side encephalomalacia History of glioblastoma removal Metabolic encephalopathy -continue tube feeding, abx, IV antiepileptics -04/13: seizure that lasted approximately 10 seconds. Given 4mg IV Ativan and continued on IV Keppra. Serum Na 128, start Lasix, continued on IV NS. Pending lumbar puncture analysis. Tele sinus in 100s. -follow osmolality studies -04/14: episode of grand mal seizure in am, given 4mg IV Ativan and continued on IV Keppra. Case discussed with neurologist Dr. Butterfield with recommendation for lacosamide and acyclovir as an add-on therapy.CSF result pending. Fever likely neurogenic. -04/15: Afebrile. Mental status still depressed, no active seizure episodes today. Case discussed with teleneurologist on the phone with recommendation for increased dose of Keppra and continued lacosamide and acyclovir. Tele sinus in 80s. Ordered EEG again. -04/16: persistent depressed mentation, neurology consult requested -04/17: afebrile, MRI head w&wo contrast shows no acute cerebrovascular ischemia, right frontotemporal encephalomalacia; pending lumbar puncture and EEG -04/18: Likely post-ictal confusion, pending lumbar puncture and EEG per neurologist recommendation, pending transfer -04/19: pending transfer for lumbar puncture per neurologist recommendation 04/19/25- patient is currently afebrile last fever he had was on April 18, 2025. EEG normal.He was also started on Acyclovir for possible encephalitis and an LP is pending. 04/21 status post lumbar puncture today at [facility] awaiting the results of the lumbar puncture labs- the patient is speaking in one-word responses- the patient remains afebrile and normal white blood cell count discontinue Rocephin and vancomycin Remains on IV Vimpat and IV Keppra Date of Service: Apr 21, 2025 Billing Provider: CRISTINA RAJPUT DO Common Visit Codes: [id number] INP/OBS CARE(HIGH) CRISTINA RAJPUT DO Apr 21, 2025 19:40
[2025-04-21 20:00] VITALS: RESP 19; O2SAT 94
[2025-04-21 22:00] VITALS: BP 146/77; PULSE 88; RESP 21; TEMP 97.8; O2SAT 94
[2025-04-22 02:00] VITALS: BP 123/75; PULSE 85; RESP 20; TEMP 97.5; O2SAT 92
--- NOTE | 2025-04-22 03:41 | RADIOLOGY REPORT ---
Exam: DI ABDOMEN,SINGLE VIEW(KUB) Indication: NGT Comparison: DI ABDOMEN,SINGLE VIEW(KUB) on DOS: 04/20/25, DI ABDOMEN,SINGLE VIEW(KUB) on DOS: 04/16/25, DI ABDOMEN,SINGLE VIEW(KUB) on DOS: 04/16/25, DI ABDOMEN,SINGLE VIEW(KUB) on DOS: 04/10/25, DI ABDOMEN ,SINGLE VIEW(KUB) on DOS: 04/10/25 Technique: 1-view Findings: Enteric tube terminates over the left upper quadrant under the hemidiaphragm, tip previously medially oriented and now superiorly oriented but remaining over stomach gas. Nonobstructive pattern of limited imaged bowel loops in the right upper quadrant. The partially imaged chest and osseous structures are unchanged. Impression: 1. Slight change in orientation of the enteric tube tip, which remains overlying the stomach in appro priate position.
--- NOTE | 2025-04-22 04:56 | RADIOLOGY REPORT ---
ABDOMINAL RADIOGRAPH Indication: NGT Technique: Single frontal view of the chest and upper abdomen was obtained Comparison: DI ABDOMEN,SINGLE VIEW(KUB) on DOS: 04/22/25 FINDINGS: Lines and tubes: The enteric tube terminates in the stomach. No focal airspace disease, pneumothorax or pleural effusion. Normal cardiovascular silhouette size. Bony thorax is intact. There is a nonobstructive bowel gas pattern. No pneumoperitoneum. Bony structu res unremarkable. IMPRESSION: 1. Enteric tube terminates in the stomach. 2. Nonobstructive bowel gas pattern.
[2025-04-22 06:00] VITALS: BP 107/76; PULSE 82; RESP 22; TEMP 97.6; O2SAT 92
[2025-04-22 07:35] LABS: MEAN PLATELET VOLUME 6.8 FL (7.4-10.4); RED CELL DISTRIBUTION WIDTH 14.7 % (11.5-14.5)
[2025-04-22 08:12] LABS: CREATININE 0.74 MG/DL (0.60-1.10); TOTAL CARBON DIOXIDE 28.0 MMOL/L (24-32); eCRCL 121 ML/MIN; eGFR > 90 ML/MIN
[2025-04-22 11:00] VITALS: BP 113/67; PULSE 84; RESP 13; TEMP 98.9; O2SAT 96
[2025-04-22 18:00] VITALS: BP 124/85; PULSE 82; RESP 17; TEMP 97.3; O2SAT 95
--- NOTE | 2025-04-22 19:35 | PROGRESS NOTE ---
Daily Progress Note Providers to CC ~ Antibiotic Timeout Antibiotic Ordered?: No Subjective The patient had pulled out his [place] feeding tube last evening and was in restraints Martinez dose from the patient has board and care came and was able to elicit information from the patient and recommended starting to feed the patient and removing the [place] feeding tube which was removed the patient now is on a pureed diet awaiting official speech therapy evaluation Objective Vital Signs Date Time Temp Pulse Resp B/P (MAP) Pulse Ox O2 Delivery O2 Flow Rate FiO2 04/22/25 11:00 98.9 84 13 113/67 (82) 96 Nasal Cannula 2.0 04/22/25 08:00 28 Result Diagram: 04/22/25 0641 04/22/25 06 Gen. No respiratory distress alert and appears oriented Lungs clear to ascultation bilaterally, no wheezes rales or rhonchi appreciated Heart normal sinus rhythm no murmurs rubs or clicks noted Abdomen soft nontender bowel sounds are normoactive Lower extremities no clubbing cyanosis, nor edema appreciated bilaterally Coagulation Studies Laboratory Tests Test 04/08/25 16:25 Prothrombin Time 11.9 SECONDS (9.0-12.0) INR International Normalized Ratio 1.2 INR Activated Partial Thromboplast Time 31 SECONDS (22-32) Coagulation Comments Problem\Assessment\Plan Assessment & Plan Aspiration pneumonia- POA Sepsis 2/2 above Acute hypoxic respiratory failure 2/2 PNA- not POA Status epilepticus Hx epilepsy Developmental delay Right side encephalomalacia History of glioblastoma removal Metabolic encephalopathy -continue tube feeding, abx, IV antiepileptics -04/13: seizure that lasted approximately 10 seconds. Given 4mg IV Ativan and continued on IV Keppra. Serum Na 128, start Lasix, continued on IV NS. Pending lumbar puncture analysis. Tele sinus in 100s. -follow osmolality studies -04/14: episode of grand mal seizure in am, given 4mg IV Ativan and continued on IV Keppra. Case discussed with neurologist Dr. Butterfield with recommendation for lacosamide and acyclovir as an add-on therapy.CSF result pending. Fever likely neurogenic. -04/15: Afebrile. Mental status still depressed, no active seizure episodes today. Case discussed with teleneurologist on the phone with recommendation for increased dose of Keppra and continued lacosamide and acyclovir. Tele sinus in 80s. Ordered EEG again. -04/16: persistent depressed mentation, neurology consult requested -04/17: afebrile, MRI head w&wo contrast shows no acute cerebrovascular ischemia, right frontotemporal encephalomalacia; pending lumbar puncture and EEG -04/18: Likely post-ictal confusion, pending lumbar puncture and EEG per neurologist recommendation, pending transfer -04/19: pending transfer for lumbar puncture per neurologist recommendation 04/19/25- patient is currently afebrile last fever he had was on April 18, 2025. EEG normal.He was also started on Acyclovir for possible encephalitis and an LP is pending. 04/21 status post lumbar puncture today at [facility] awaiting the results of the lumbar puncture labs- the patient is speaking in one-word responses- the patient remains afebrile and normal white blood cell count discontinue Rocephin and vancomycin Remains on IV Vimpat and IV Keppra 04/22 Martinez NARVAEZ from the patient's board and care was able to elicit information with the patient and thus the patient is started on a pureed diet. Had spoken earlier in the day to Martinez about obtaining a PEG tube. The last time the patient was hospitalized for weak she is going to work with staff from the board and care with a come in and strongly encouraged the patient which was required last hospitalization Date of Service: Apr 22, 2025 Billing Provider: CRISTINA RAJPUT DO Common Visit Codes: [id number] INP/OBS CARE(HIGH) CRISTINA RAJPUT DO Apr 22, 2025 19:35
[2025-04-22 20:00] VITALS: RESP 17; O2SAT 95
[2025-04-22 22:00] VITALS: BP 127/90; PULSE 72; RESP 21; TEMP 97.3; O2SAT 97
[2025-04-23] VITALS (9 sets, daily range): BP systolic 115–133; BP diastolic 71–84; PULSE 68–91; RESP 13–23; TEMP 97–98.1; O2SAT 93–99
[2025-04-23 07:04] LABS: MEAN PLATELET VOLUME 6.8 FL (7.4-10.4); RED CELL DISTRIBUTION WIDTH 15.0 % (11.5-14.5)
[2025-04-23 07:35] LABS: CREATININE 0.84 MG/DL (0.60-1.10); TOTAL CARBON DIOXIDE 31.3 MMOL/L (24-32); eCRCL 106 ML/MIN; eGFR > 90 ML/MIN
[2025-04-23] MEDS: OLANZapine 5mg rapidly disint. tablet PO ONE (10:18)
[2025-04-23] MEDS: LACOSAMIDE 50 MG TABLET PO SCH (19:17)
--- NOTE | 2025-04-23 20:10 | PROGRESS NOTE ---
Daily Progress Note Providers to CC ~ Antibiotic Timeout Antibiotic Ordered?: No Subjective Patient did better with speech therapy today and his diets advanced to a mechanical soft chopped diet with thin liquids. The patient is significantly weak and required two person assist with physical therapy. Objective Vital Signs Date Time Temp Pulse Resp B/P (MAP) Pulse Ox O2 Delivery O2 Flow Rate FiO2 04/23/25 15:00 98.1 71 13 115/77 (90) 97 Nasal Cannula 2.0 04/23/25 08:00 28 Result Diagram: 04/23/25 0619 04/23/25 0619 Gen. No respiratory distress alert and appears oriented Lungs clear to ascultation bilaterally, no wheezes rales or rhonchi appreciated Heart normal sinus rhythm no murmurs rubs or clicks noted Abdomen soft nontender bowel sounds are normoactive Lower extremities no clubbing cyanosis, nor edema appreciated bilaterally Coagulation Studies Laboratory Tests Test 04/08/25 16:25 Prothrombin Time 11.9 SECONDS (9.0-12.0) INR International Normalized Ratio 1.2 INR Activated Partial Thromboplast Time 31 SECONDS (22-32) Coagulation Comments Problem\Assessment\Plan Assessment & Plan Aspiration pneumonia- POA Sepsis 2/2 above Acute hypoxic respiratory failure 2/2 PNA- not POA Status epilepticus Hx epilepsy Developmental delay Right side encephalomalacia History of glioblastoma removal Metabolic encephalopathy -continue tube feeding, abx, IV antiepileptics -04/13: seizure that lasted approximately 10 seconds. Given 4mg IV Ativan and continued on IV Keppra. Serum Na 128, start Lasix, continued on IV NS. Pending lumbar puncture analysis. Tele sinus in 100s. -follow osmolality studies -04/14: episode of grand mal seizure in am, given 4mg IV Ativan and continued on IV Keppra. Case discussed with neurologist Dr. Butterfield with recommendation for lacosamide and acyclovir as an add-on therapy.CSF result pending. Fever likely neurogenic. -04/15: Afebrile. Mental status still depressed, no active seizure episodes today. Case discussed with teleneurologist on the phone with recommendation for increased dose of Keppra and continued lacosamide and acyclovir. Tele sinus in 80s. Ordered EEG again. -04/16: persistent depressed mentation, neurology consult requested -04/17: afebrile, MRI head w&wo contrast shows no acute cerebrovascular ischemia, right frontotemporal encephalomalacia; pending lumbar puncture and EEG -04/18: Likely post-ictal confusion, pending lumbar puncture and EEG per neurologist recommendation, pending transfer -04/19: pending transfer for lumbar puncture per neurologist recommendation 04/19/25- patient is currently afebrile last fever he had was on April 18, 2025. EEG normal.He was also started on Acyclovir for possible encephalitis and an LP is pending. 04/21 status post lumbar puncture today at [facility] awaiting the results of the lumbar puncture labs- the patient is speaking in one-word responses- the patient remains afebrile and normal white blood cell count discontinue Rocephin and vancomycin Remains on IV Vimpat and IV Keppra 04/22 Martinez NARVAEZ from the patient's board and care was able to elicit information with the patient and thus the patient is started on a pureed diet. Had spoken earlier in the day to Martinez about obtaining a PEG tube. The last time the patient was hospitalized for weak she is going to work with staff from the board and care with a come in and strongly encouraged the patient which was required last hospitalization 04/23 in his significantly weak with physical therapy and required two person assist, the patient however is able to tolerate a chopped diet with thin liquids in his diet is advanced Date of Service: Apr 23, 2025 Billing Provider: CRISTINA RAJPUT DO Common Visit Codes: [id number] INP/OBS CARE(HIGH) CRISTINA RAJPUT DO Apr 23, 2025 20:10
[2025-04-24] VITALS (8 sets, daily range): BP systolic 106–145; BP diastolic 67–86; PULSE 76–94; RESP 13–17; TEMP 97.2–98.3; O2SAT 95–98
[2025-04-24 06:24] LABS: MEAN PLATELET VOLUME 6.9 FL (7.4-10.4); RED CELL DISTRIBUTION WIDTH 14.5 % (11.5-14.5)
[2025-04-24 06:39] LABS: CREATININE 0.67 MG/DL (0.60-1.10); TOTAL CARBON DIOXIDE 27.3 MMOL/L (24-32); eCRCL 133 ML/MIN; eGFR > 90 ML/MIN
[2025-04-24] MEDS: OLANZapine 5mg rapidly disint. tablet PO SCH (07:21)
[2025-04-24] MEDS: lansoprazole 15mg solutab PO SCH (07:21)
--- NOTE | 2025-04-24 12:58 | RADIOLOGY REPORT ---
DI ABDOMEN,SINGLE VIEW(KUB) HISTORY: Eval stool burden load TECHNICAL DATA: 1 view of the abdomen. COMPARISON: DI ABDOMEN,SINGLE VIEW(KUB) on DOS: 04/22/25, DI ABDOMEN,SINGLE VIEW(KUB) on DOS: 04/22/25, DI ABDOMEN,SINGLE VIEW(KUB) on DOS: 04/20/25 FINDINGS: Patchy gas is identified within nondistended small bowel. There are no dilated small bowel loops. Th ere is no abdominal mass effect. The renal and liver shadows are not enlarged. IMPRESSION: Large colonic fecal burden.
[2025-04-24] MEDS: magnesium hydroxide 30ml (MOM) UD suspension PO ONE (14:08)
[2025-04-24] MEDS: lactulose 20gm/30ml cup PO SCH (14:08)
[2025-04-24] MEDS ORDERED: mineral oil 133ml enema RC PRN (19:35)
--- NOTE | 2025-04-24 19:36 | PROGRESS NOTE ---
Daily Progress Note Providers to CC ~ Antibiotic Timeout Antibiotic Ordered?: No Subjective The patient has not had a bowel movement in five days started the patient on lactulose and Dulcolax suppositories as well as milk of magnesia as needed daily KUB is ordered Objective Vital Signs Date Time Temp Pulse Resp B/P (MAP) Pulse Ox O2 Delivery O2 Flow Rate FiO2 04/24/25 14:59 98.0 94 15 137/86 (103) 95 Room Air 2.0 04/24/25 07:36 32 Result Diagram: 04/24/25 0534 04/24/25 0534 Gen. No respiratory distress alert and appears oriented Lungs clear to ascultation bilaterally, no wheezes rales or rhonchi appreciated Heart normal sinus rhythm no murmurs rubs or clicks noted Abdomen soft nontender bowel sounds are normoactive Lower extremities no clubbing cyanosis, nor edema appreciated bilaterally Coagulation Studies Laboratory Tests Test 04/08/25 16:25 Prothrombin Time 11.9 SECONDS (9.0-12.0) INR International Normalized Ratio 1.2 INR Activated Partial Thromboplast Time 31 SECONDS (22-32) Coagulation Comments Problem\Assessment\Plan Assessment & Plan Aspiration pneumonia- POA Sepsis 2/2 above Acute hypoxic respiratory failure 2/2 PNA- not POA Status epilepticus Hx epilepsy Developmental delay Right side encephalomalacia History of glioblastoma removal Metabolic encephalopathy -continue tube feeding, abx, IV antiepileptics -04/13: seizure that lasted approximately 10 seconds. Given 4mg IV Ativan and continued on IV Keppra. Serum Na 128, start Lasix, continued on IV NS. Pending lumbar puncture analysis. Tele sinus in 100s. -follow osmolality studies -04/14: episode of grand mal seizure in am, given 4mg IV Ativan and continued on IV Keppra. Case discussed with neurologist Dr. Butterfield with recommendation for lacosamide and acyclovir as an add-on therapy.CSF result pending. Fever likely neurogenic. -04/15: Afebrile. Mental status still depressed, no active seizure episodes today. Case discussed with teleneurologist on the phone with recommendation for increased dose of Keppra and continued lacosamide and acyclovir. Tele sinus in 80s. Ordered EEG again. -04/16: persistent depressed mentation, neurology consult requested -04/17: afebrile, MRI head w&wo contrast shows no acute cerebrovascular ischemia, right frontotemporal encephalomalacia; pending lumbar puncture and EEG -04/18: Likely post-ictal confusion, pending lumbar puncture and EEG per neurologist recommendation, pending transfer -04/19: pending transfer for lumbar puncture per neurologist recommendation 04/19/25- patient is currently afebrile last fever he had was on April 18, 2025. EEG normal.He was also started on Acyclovir for possible encephalitis and an LP is pending. 04/21 status post lumbar puncture today at [facility] awaiting the results of the lumbar puncture labs- the patient is speaking in one-word responses- the patient remains afebrile and normal white blood cell count discontinue Rocephin and vancomycin Remains on IV Vimpat and IV Keppra 04/22 Martinez NARVAEZ from the patient's board and care was able to elicit information with the patient and thus the patient is started on a pureed diet. Had spoken earlier in the day to Martinez about obtaining a PEG tube. The last time the patient was hospitalized for weak she is going to work with staff from the board and care with a come in and strongly encouraged the patient which was required last hospitalization 04/23 in his significantly weak with physical therapy and required two person assist, the patient however is able to tolerate a chopped diet with thin liquids in his diet is advanced 04/24 restraints are reordered as the patient has pulled out IVs- the patient is significantly constipated start scheduled lactulose parents suppositories mineral oil enema now and daily Date of Service: Apr 24, 2025 Billing Provider: CRISTINA RAJPUT DO Common Visit Codes: [id number] INP/OBS CARE(HIGH) CRISTINA RAJPUT DO Apr 24, 2025 19:36
[2025-04-24] MEDS: mineral oil 133ml enema RC ONE (22:14)
[2025-04-25] VITALS (8 sets, daily range): BP systolic 118–127; BP diastolic 80–86; PULSE 64–82; RESP 14–20; TEMP 97.2–98.5; O2SAT 97–98
[2025-04-25 06:19] LABS: MEAN PLATELET VOLUME 7.2 FL (7.4-10.4); RED CELL DISTRIBUTION WIDTH 15.1 % (11.5-14.5)
[2025-04-25 06:45] LABS: CREATININE 0.75 MG/DL (0.60-1.10); TOTAL CARBON DIOXIDE 28.6 MMOL/L (24-32); eCRCL 119 ML/MIN; eGFR > 90 ML/MIN
--- NOTE | 2025-04-25 07:50 | RADIOLOGY REPORT ---
Exam: DI ABDOMEN,SINGLE VIEW(KUB) Indication: Severe constipation Comparison: DI ABDOMEN,SINGLE VIEW(KUB) on DOS: 04/24/25, DI ABDOMEN,SINGLE VIEW(KUB) on DOS: 04/22/25, DI ABDOMEN,SINGLE VIEW(KUB) on DOS: 04/22/25, DI ABDOMEN,SINGLE VIEW(KUB) on DOS: 04/20/25, DI ABDOMEN ,SINGLE VIEW(KUB) on DOS: 04/16/25 Technique: 1 radiographic views of the abdomen. Findings: Nonobstructive bowel gas pattern noted. Large volume colonic stool. There is no definite evidence for pneumoperitoneum. No abnormal calcifications noted. Impression: Large volume colonic stool, unchanged
--- NOTE | 2025-04-25 18:35 | PROGRESS NOTE ---
Daily Progress Note Providers to CC ~ Antibiotic Timeout Antibiotic Ordered?: No Subjective THE PATIENT IS TOLERATING HIS CHOPPED DIET WITHOUT ANY DIFFICULTY HE IS MORE COMMUNICATIVE TODAY AND DID STAND WITH PHYSICAL THERAPY Objective Vital Signs Date Time Temp Pulse Resp B/P (MAP) Pulse Ox O2 Delivery O2 Flow Rate FiO2 04/25/25 16:15 98 Nasal Cannula* 2 28 04/25/25 11:00 97.3 76 17 120/81 (94) Result Diagram: 04/25/25 0439 04/25/25 0439 Gen. No respiratory distress alert and appears oriented Lungs clear to ascultation bilaterally, no wheezes rales or rhonchi appreciated Heart normal sinus rhythm no murmurs rubs or clicks noted Abdomen soft nontender bowel sounds are normoactive Lower extremities no clubbing cyanosis, nor edema appreciated bilaterally Coagulation Studies Laboratory Tests Test 04/08/25 16:25 Prothrombin Time 11.9 SECONDS (9.0-12.0) INR International Normalized Ratio 1.2 INR Activated Partial Thromboplast Time 31 SECONDS (22-32) Coagulation Comments Problem\Assessment\Plan Assessment & Plan Aspiration pneumonia- POA Sepsis 2/2 above Acute hypoxic respiratory failure 2/2 PNA- not POA Status epilepticus Hx epilepsy Developmental delay Right side encephalomalacia History of glioblastoma removal Metabolic encephalopathy -continue tube feeding, abx, IV antiepileptics -04/13: seizure that lasted approximately 10 seconds. Given 4mg IV Ativan and continued on IV Keppra. Serum Na 128, start Lasix, continued on IV NS. Pending lumbar puncture analysis. Tele sinus in 100s. -follow osmolality studies -04/14: episode of grand mal seizure in am, given 4mg IV Ativan and continued on IV Keppra. Case discussed with neurologist Dr. Butterfield with recommendation for lacosamide and acyclovir as an add-on therapy.CSF result pending. Fever likely neurogenic. -04/15: Afebrile. Mental status still depressed, no active seizure episodes today. Case discussed with teleneurologist on the phone with recommendation for increased dose of Keppra and continued lacosamide and acyclovir. Tele sinus in 80s. Ordered EEG again. -04/16: persistent depressed mentation, neurology consult requested -04/17: afebrile, MRI head w&wo contrast shows no acute cerebrovascular ischemia, right frontotemporal encephalomalacia; pending lumbar puncture and EEG -04/18: Likely post-ictal confusion, pending lumbar puncture and EEG per neurologist recommendation, pending transfer -04/19: pending transfer for lumbar puncture per neurologist recommendation 04/19/25- patient is currently afebrile last fever he had was on April 18, 2025. EEG normal.He was also started on Acyclovir for possible encephalitis and an LP is pending. 04/21 status post lumbar puncture today at [facility] awaiting the results of the lumbar puncture labs- the patient is speaking in one-word responses- the patient remains afebrile and normal white blood cell count discontinue Rocephin and vancomycin Remains on IV Vimpat and IV Keppra 04/22 Martinez NARVAEZ from the patient's board and care was able to elicit information with the patient and thus the patient is started on a pureed diet. Had spoken earlier in the day to Martinez about obtaining a PEG tube. The last time the patient was hospitalized for weak she is going to work with staff from the board and care with a come in and strongly encouraged the patient which was required last hospitalization 04/23 in his significantly weak with physical therapy and required two person assist, the patient however is able to tolerate a chopped diet with thin liquids in his diet is advanced 04/24 restraints are reordered as the patient has pulled out IVs- the patient is significantly constipated start scheduled lactulose parents suppositories mineral oil enema now and daily 04/25 continues to have a large stool burden that has not had a bowel movement yet even though multiple bowel regimen medications has been administered. He did better with activities with physical therapy today including standing in his more communicative today as well Date of Service: Apr 25, 2025 Billing Provider: CRISTINA RAJPUT DO Common Visit Codes: [id number] INP/OBS CARE(MOD) CRISTINA RAJPUT DO Apr 25, 2025 18:35
[2025-04-26] VITALS (9 sets, daily range): BP systolic 116–133; BP diastolic 74–93; PULSE 58–104; RESP 16–18; TEMP 96.7–97.6; O2SAT 94–98
[2025-04-26 06:40] LABS: MEAN PLATELET VOLUME 6.9 FL (7.4-10.4); RED CELL DISTRIBUTION WIDTH 15.0 % (11.5-14.5)
[2025-04-26 06:58] LABS: CREATININE 0.85 MG/DL (0.60-1.10); TOTAL CARBON DIOXIDE 28.5 MMOL/L (24-32); eCRCL 105 ML/MIN; eGFR > 90 ML/MIN
--- NOTE | 2025-04-26 07:31 | RADIOLOGY REPORT ---
Exam: DI ABDOMEN,SINGLE VIEW(KUB) Indication: Severe constipation Comparison: DI ABDOMEN,SINGLE VIEW(KUB) on DOS: 04/25/25, DI ABDOMEN,SINGLE VIEW(KUB) on DOS: 04/24/25, DI ABDOMEN,SINGLE VIEW(KUB) on DOS: 04/22/25, DI ABDOMEN,SINGLE VIEW(KUB) on DOS: 04/22/25, DI ABDOMEN ,SINGLE VIEW(KUB) on DOS: 04/20/25, DI ABDOMEN,SINGLE VIEW(KUB) on DOS: 04/25/25 Technique: 1 radiographic views of the abdomen. Findings: Nonobstructive bowel gas pattern noted. Large volume colonic stool. There is no definite evidence for pneumoperitoneum. No abnormal calcifications noted. Impression: Large volume colonic stool, unchanged
[2025-04-26] MEDS: bisacodyl 10mg suppository rectal RC PRN (09:35)
[2025-04-26] MEDS: docusate sodium 100mg/10ml UD cup PO SCH (11:56)
--- NOTE | 2025-04-26 16:17 | PROGRESS NOTE ---
Daily Progress Note Providers to CC ~ Antibiotic Timeout Antibiotic Ordered?: No Subjective The patient is able to speak and even spoke my name today. He remains weak however a did improve his activity level and speaking with the patient's residential home they want the patient back. The patient is tolerating a chopped diet. Objective Vital Signs Date Time Temp Pulse Resp B/P (MAP) Pulse Ox O2 Delivery O2 Flow Rate FiO2 04/26/25 15:45 98 Nasal Cannula* 1 24 04/26/25 12:37 104 16 04/26/25 10:30 96.7 132/93 (106) Result Diagram: 04/26/25 0613 04/26/25 0613 Gen. No respiratory distress alert and oriented Lungs clear to ascultation bilaterally, no wheezes rales or rhonchi appreciated Heart normal sinus rhythm no murmurs rubs or clicks noted Abdomen soft nontender bowel sounds are normoactive Lower extremities no clubbing cyanosis, nor edema appreciated bilaterally Coagulation Studies Laboratory Tests Test 04/08/25 16:25 Prothrombin Time 11.9 SECONDS (9.0-12.0) INR International Normalized Ratio 1.2 INR Activated Partial Thromboplast Time 31 SECONDS (22-32) Coagulation Comments Problem\Assessment\Plan Assessment & Plan Aspiration pneumonia- POA Sepsis 2/2 above Acute hypoxic respiratory failure 2/2 PNA- not POA Status epilepticus Hx epilepsy Developmental delay Right side encephalomalacia History of glioblastoma removal Metabolic encephalopathy -continue tube feeding, abx, IV antiepileptics -04/13: seizure that lasted approximately 10 seconds. Given 4mg IV Ativan and continued on IV Keppra. Serum Na 128, start Lasix, continued on IV NS. Pending lumbar puncture analysis. Tele sinus in 100s. -follow osmolality studies -04/14: episode of grand mal seizure in am, given 4mg IV Ativan and continued on IV Keppra. Case discussed with neurologist Dr. Butterfield with recommendation for lacosamide and acyclovir as an add-on therapy.CSF result pending. Fever likely neurogenic. -04/15: Afebrile. Mental status still depressed, no active seizure episodes today. Case discussed with teleneurologist on the phone with recommendation for increased dose of Keppra and continued lacosamide and acyclovir. Tele sinus in 80s. Ordered EEG again. -8/22: persistent depressed mentation, neurology consult requested -04/17: afebrile, MRI head w&wo contrast shows no acute cerebrovascular ischemia, right frontotemporal encephalomalacia; pending lumbar puncture and EEG -04/18: Likely post-ictal confusion, pending lumbar puncture and EEG per neurologist recommendation, pending transfer -04/19: pending transfer for lumbar puncture per neurologist recommendation 04/19/25- patient is currently afebrile last fever he had was on April 18, 2025. EEG normal.He was also started on Acyclovir for possible encephalitis and an LP is pending. 04/21 status post lumbar puncture today at [facility] awaiting the results of the lumbar puncture labs- the patient is speaking in one-word responses- the patient remains afebrile and normal white blood cell count discontinue Rocephin and vancomycin Remains on IV Vimpat and IV Keppra 04/22 Martinez NARVAEZ from the patient's board and care was able to elicit information with the patient and thus the patient is started on a pureed diet. Had spoken earlier in the day to Martinez about obtaining a PEG tube. The last time the patient was hospitalized for weak she is going to work with staff from the board and care with a come in and strongly encouraged the patient which was required last hospitalization 04/23 in his significantly weak with physical therapy and required two person assist, the patient however is able to tolerate a chopped diet with thin liquids in his diet is advanced 04/24 restraints are reordered as the patient has pulled out IVs- the patient is significantly constipated start scheduled lactulose parents suppositories mineral oil enema now and daily 04/25 continues to have a large stool burden that has not had a bowel movement yet even though multiple bowel regimen medications has been administered. He did better with activities with physical therapy today including standing in his more communicative today as well 04/26 we still do not have the lumbar puncture lab results back however the patient is significantly improved and is able to speak and a few words in his tolerating a chopped diet the patient remains weak however did improve both on the and the in regards to activities with physical therapy. Martinez NARVAEZ director of the patient's residential home made it clear when I spoke with her on 04/22 that they want the patient back. At that time I discussed possible PEG tube placement however the patient now is tolerating chopped diet without any difficulties. Date of Service: Apr 26, 2025 Billing Provider: CRISTINA RAJPUT DO Common Visit Codes: [id number] INP/OBS CARE(MOD) CRISTINA RAJPUT DO Apr 26, 2025 16:17
[2025-04-27] VITALS (7 sets, daily range): BP systolic 136–175; BP diastolic 77–94; PULSE 70–97; RESP 16–19; TEMP 97.4–98.3; O2SAT 16–97
[2025-04-27 08:53] LABS: MEAN PLATELET VOLUME 7.8 FL (7.4-10.4); RED CELL DISTRIBUTION WIDTH 15.4 % (11.5-14.5)
--- NOTE | 2025-04-27 09:03 | RADIOLOGY REPORT ---
Date: 04/27/2025 07:12 AM Examination: DI ABDOMEN,SINGLE VIEW(KUB) History: Severe constipation Comparison: DI ABDOMEN,SINGLE VIEW(KUB) on DOS: 04/26/25, DI ABDOMEN,SINGLE VIEW(KUB) on DOS: 04/25/25, DI ABDOMEN,SINGLE VIEW(KUB) on DOS: 04/24/25, DI ABDOMEN,SINGLE VIEW(KUB) on DOS: 04/22/25, DI ABDOMEN, SINGLE VIEW(KUB) on DOS: 04/22/25 TECHNIQUE: Frontal views of the abdomen was obtained. FINDINGS: Bowel gas pattern is unremarkable. The lung bases are unremarkable. No acute osseous abnormality identified. IMPRESSION: Nonobstructive bowel gas pattern. Large Stool burden.
[2025-04-27 09:04] LABS: CREATININE 0.79 MG/DL (0.60-1.10); TOTAL CARBON DIOXIDE 26.1 MMOL/L (24-32); eCRCL 113 ML/MIN; eGFR > 90 ML/MIN
--- NOTE | 2025-04-27 11:29 | PROGRESS NOTE ---
Daily Progress Note Providers to CC ~ Antibiotic Timeout Antibiotic Ordered?: No Subjective No acute events overnight. Patient examined at bedside. No new complaints, not in acute distress. Vss, labs unremarkable. Patient is tolerating oral diet well, continue PT until cleared for discharge to residential home. Objective Vital Signs Date Time Temp Pulse Resp B/P (MAP) Pulse Ox O2 Delivery O2 Flow Rate FiO2 04/27/25 07:44 70 16 95 Room Air* 0 21 04/27/25 06:00 97.4 175/86 (115) Result Diagram: 04/27/25 0453 04/27/25 0453 Physical Exam General: Generalized weakness, awake, nonverbal, NAD HEENT: Normocephalic, PERRLA Neck: Supple, trachea midline, no JVD Chest: Clear to auscultation bilaterally Cardiovascular: RRR, S1&S2 GI: Soft and nontender Extremities: No cyanosis/clubbing/or edema MATTRESS AND BOXSPRINGS SUPERVISOR: No focal deficits Musculoskeletal: No paraspinal muscle tenderness, no muscle spasm Skin: Warm and intact Coagulation Studies Laboratory Tests Test 04/08/25 16:25 Prothrombin Time 11.9 SECONDS (9.0-12.0) INR International Normalized Ratio 1.2 INR Activated Partial Thromboplast Time 31 SECONDS (22-32) Coagulation Comments Problem\Assessment\Plan Assessment & Plan Aspiration pneumonia- POA Sepsis 2/2 above Acute hypoxic respiratory failure 2/2 PNA- not POA Status epilepticus Hx epilepsy Developmental delay Right side encephalomalacia History of glioblastoma removal Metabolic encephalopathy -continue tube feeding, abx, IV antiepileptics -04/13: seizure that lasted approximately 10 seconds. Given 4mg IV Ativan and continued on IV Keppra. Serum Na 128, start Lasix, continued on IV NS. Pending lumbar puncture analysis. Tele sinus in 100s. -follow osmolality studies -04/14: episode of grand mal seizure in am, given 4mg IV Ativan and continued on IV Keppra. Case discussed with neurologist Dr. Butterfield with recommendation for lacosamide and acyclovir as an add-on therapy.CSF result pending. Fever likely neurogenic. -04/15: Afebrile. Mental status still depressed, no active seizure episodes today. Case discussed with teleneurologist on the phone with recommendation for increased dose of Keppra and continued lacosamide and acyclovir. Tele sinus in 80s. Ordered EEG again. -04/16: persistent depressed mentation, neurology consult requested -04/17: afebrile, MRI head w&wo contrast shows no acute cerebrovascular ischemia, right frontotemporal encephalomalacia; pending lumbar puncture and EEG -04/18: Likely post-ictal confusion, pending lumbar puncture and EEG per neurologist recommendation, pending transfer -04/19: pending transfer for lumbar puncture per neurologist recommendation 04/19/25- patient is currently afebrile last fever he had was on April 18, 2025. EEG normal.He was also started on Acyclovir for possible encephalitis and an LP is pending. 04/21 status post lumbar puncture today at [facility] awaiting the results of the lumbar puncture labs- the patient is speaking in one-word responses- the patient remains afebrile and normal white blood cell count discontinue Rocephin and vancomycin Remains on IV Vimpat and IV Keppra 04/22 Martinez NARVAEZ from the patient's board and care was able to elicit information with the patient and thus the patient is started on a pureed diet. Had spoken earlier in the day to Martinez about obtaining a PEG tube. The last time the patient was hospitalized for weak she is going to work with staff from the board and care with a come in and strongly encouraged the patient which was required last hospitalization 04/23 in his significantly weak with physical therapy and required two person assist, the patient however is able to tolerate a chopped diet with thin liquids in his diet is advanced 04/24 restraints are reordered as the patient has pulled out IVs- the patient is significantly constipated start scheduled lactulose parents suppositories mineral oil enema now and daily 04/25 continues to have a large stool burden that has not had a bowel movement yet even though multiple bowel regimen medications has been administered. He did better with activities with physical therapy today including standing in his more communicative today as well 04/26 we still do not have the lumbar puncture lab results back however the patient is significantly improved and is able to speak and a few words in his tolerating a chopped diet the patient remains weak however did improve both on the and the in regards to activities with physical therapy. Martinez NARVAEZ director of the patient's residential home made it clear when I spoke with her on 04/22 that they want the patient back. At that time I discussed possible PEG tube placement however the patient now is tolerating chopped diet without any difficulties. 04/27 tolerating oral diet well, continue PT until cleared for discharge to residential home Date of Service: Apr 27, 2025 Billing Provider: TAMMY HANSON Common Visit Codes: [id number] INP/OBS CARE(MOD) TAMMY HANSON Apr 27, 2025 11:29
[2025-04-28] VITALS (8 sets, daily range): BP systolic 105–129; BP diastolic 74–86; PULSE 69–102; RESP 14–20; TEMP 97.5–98.6; O2SAT 92–98
[2025-04-28 04:35] LABS: MEAN PLATELET VOLUME 6.9 FL (7.4-10.4); RED CELL DISTRIBUTION WIDTH 15.2 % (11.5-14.5)
[2025-04-28 05:08] LABS: CREATININE 0.60 MG/DL (0.60-1.10); TOTAL CARBON DIOXIDE 26.8 MMOL/L (24-32); eCRCL 149 ML/MIN; eGFR > 90 ML/MIN
--- NOTE | 2025-04-28 10:00 | RADIOLOGY REPORT ---
Date: 04/28/2025 09:08 AM Examination: DI ABDOMEN,SINGLE VIEW(KUB) History: Severe constipation Comparison: DI ABDOMEN,SINGLE VIEW(KUB) on DOS: 04/27/25, DI ABDOMEN,SINGLE VIEW(KUB) on DOS: 04/26/25, D I ABDOMEN,SINGLE VIEW(KUB) on DOS: 04/25/25, DI ABDOMEN,SINGLE VIEW(KUB) on DOS: 04/24/25, DI ABDOMEN,S SAHRA VIEW(KUB) on DOS: 04/22/25 TECHNIQUE: Frontal views of the abdomen was obtained. FINDINGS: Bowel gas pattern is unremarkable. The lung bases are unremarkable. No acute osseous abnormality identified. IMPRESSION: Nonobstructive bowel gas pattern. Large stool burden
--- NOTE | 2025-04-28 11:57 | PROGRESS NOTE ---
Daily Progress Note Providers to CC ~ Antibiotic Timeout Antibiotic Ordered?: No Subjective No acute events overnight. Patient examined at bedside. No new complaints, not in acute distress. Vss, labs unremarkable. Patient is tolerating oral diet well, continue PT until cleared for discharge to residential home. Objective Vital Signs Date Time Temp Pulse Resp B/P (MAP) Pulse Ox O2 Delivery O2 Flow Rate FiO2 04/28/25 08:34 101 15 98 Room Air* 0 21 04/28/25 06:56 97.5 105/74 (84) Result Diagram: 04/28/2541404/28/25414 Physical Exam General: Generalized weakness, awake, nonverbal, NAD HEENT: Normocephalic, PERRLA Neck: Supple, trachea midline, no JVD Chest: Clear to auscultation bilaterally Cardiovascular: RRR, S1&S2 GI: Soft and nontender Extremities: No cyanosis/clubbing/or edema CORPORATE OPERATIONS COMPLIANCE MANAGER: No focal deficits Musculoskeletal: No paraspinal muscle tenderness, no muscle spasm Skin: Warm and intact Coagulation Studies Laboratory Tests Test 04/08/25 16:25 Prothrombin Time 11.9 SECONDS (9.0-12.0) INR International Normalized Ratio 1.2 INR Activated Partial Thromboplast Time 31 SECONDS (22-32) Coagulation Comments Problem\Assessment\Plan Assessment & Plan Aspiration pneumonia- POA Sepsis 2/2 above Acute hypoxic respiratory failure 2/2 PNA- not POA Status epilepticus Hx epilepsy Developmental delay Right side encephalomalacia History of glioblastoma removal Metabolic encephalopathy -continue tube feeding, abx, IV antiepileptics -04/13: seizure that lasted approximately 10 seconds. Given 4mg IV Ativan and continued on IV Keppra. Serum Na 128, start Lasix, continued on IV NS. Pending lumbar puncture analysis. Tele sinus in 100s. -follow osmolality studies -04/14: episode of grand mal seizure in am, given 4mg IV Ativan and continued on IV Keppra. Case discussed with neurologist Dr. Butterfield with recommendation for lacosamide and acyclovir as an add-on therapy.CSF result pending. Fever likely neurogenic. -04/15: Afebrile. Mental status still depressed, no active seizure episodes today. Case discussed with teleneurologist on the phone with recommendation for increased dose of Keppra and continued lacosamide and acyclovir. Tele sinus in 80s. Ordered EEG again. -04/16: persistent depressed mentation, neurology consult requested -04/17: afebrile, MRI head w&wo contrast shows no acute cerebrovascular ischemia, right frontotemporal encephalomalacia; pending lumbar puncture and EEG -04/18: Likely post-ictal confusion, pending lumbar puncture and EEG per neurologist recommendation, pending transfer -04/19: pending transfer for lumbar puncture per neurologist recommendation 04/19/25- patient is currently afebrile last fever he had was on April 18, 2025. EEG normal.He was also started on Acyclovir for possible encephalitis and an LP is pending. 04/21 status post lumbar puncture today at [facility] awaiting the results of the lumbar puncture labs- the patient is speaking in one-word responses- the patient remains afebrile and normal white blood cell count discontinue Rocephin and vancomycin Remains on IV Vimpat and IV Keppra 04/22 Martinez NARVAEZ from the patient's board and care was able to elicit information with the patient and thus the patient is started on a pureed diet. Had spoken earlier in the day to Martinez about obtaining a PEG tube. The last time the patient was hospitalized for weak she is going to work with staff from the board and care with a come in and strongly encouraged the patient which was required last hospitalization 04/23 in his significantly weak with physical therapy and required two person assist, the patient however is able to tolerate a chopped diet with thin liquids in his diet is advanced 04/24 restraints are reordered as the patient has pulled out IVs- the patient is significantly constipated start scheduled lactulose parents suppositories mineral oil enema now and daily 04/25 continues to have a large stool burden that has not had a bowel movement yet even though multiple bowel regimen medications has been administered. He did better with activities with physical therapy today including standing in his more communicative today as well 04/26 we still do not have the lumbar puncture lab results back however the patient is significantly improved and is able to speak and a few words in his tolerating a chopped diet the patient remains weak however did improve both on the and the in regards to activities with physical therapy. Martinez NARVAEZ director of the patient's residential home made it clear when I spoke with her on 04/22 that they want the patient back. At that time I discussed possible PEG tube placement however the patient now is tolerating chopped diet without any difficulties. 04/27 tolerating oral diet well, continue PT until cleared for discharge to residential home Date of Service: Apr 28, 2025 Billing Provider: TAMMY HANSON Common Visit Codes: [id number] INP/OBS CARE(MOD) TAMMY HANSON Apr 28, 2025 11:57
[2025-04-28] MEDS: guaiFENesin 200 MG/10 ML oral syrup UD cup PO PRN (14:30)
[2025-04-29] VITALS (9 sets, daily range): BP systolic 119–149; BP diastolic 11–86; PULSE 66–105; RESP 16–20; TEMP 97.7–99.3; O2SAT 91–95
[2025-04-29 04:43] LABS: MEAN PLATELET VOLUME 7.0 FL (7.4-10.4); RED CELL DISTRIBUTION WIDTH 15.1 % (11.5-14.5)
[2025-04-29 04:55] LABS: CREATININE 0.77 MG/DL (0.60-1.10); TOTAL CARBON DIOXIDE 25.3 MMOL/L (24-32); eCRCL 116 ML/MIN; eGFR > 90 ML/MIN
--- NOTE | 2025-04-29 09:09 | RADIOLOGY REPORT ---
Date: 04/29/2025 06:59 AM Examination: DI ABDOMEN,SINGLE VIEW(KUB) History: Severe constipation Comparison: DI ABDOMEN,SINGLE VIEW(KUB) on DOS: 04/28/25, DI ABDOMEN,SINGLE VIEW(KUB) on DOS: 04/27/25, D I ABDOMEN,SINGLE VIEW(KUB) on DOS: 04/26/25, DI ABDOMEN,SINGLE VIEW(KUB) on DOS: 04/25/25, DI ABDOMEN,SI NGLE VIEW(KUB) on DOS: 04/24/25 TECHNIQUE: Frontal views of the abdomen was obtained. FINDINGS: Bowel gas pattern is unremarkable. The lung bases are unremarkable. No acute osseous abnormality identified. IMPRESSION: Nonobstructive bowel gas pattern. Large stool burden.
[2025-04-29] MEDS ORDERED: LEVE250T PO (10:36)
[2025-04-29] MEDS ORDERED: PANT40TA54 PO (10:36)
[2025-04-29] MEDS ORDERED: ASPI81TA52 PO (10:36)
[2025-04-29] MEDS ORDERED: LACO50TA2 PO (10:36)
--- NOTE | 2025-04-29 13:42 | PROGRESS NOTE ---
Daily Progress Note Providers to CC ~ Antibiotic Timeout Antibiotic Ordered?: No Subjective No acute events overnight. Patient examined at bedside. No new complaints, not in acute distress. Vss, labs unremarkable. Patient is tolerating oral diet well. Vss, labs unremarkable. CM working on [employer] and reclining wheelchair. Pending approval prior discharge. Objective Vital Signs Date Time Temp Pulse Resp B/P (MAP) Pulse Ox O2 Delivery O2 Flow Rate FiO2 04/29/25 10:21 16 Room Air 04/29/25 10:14 98.7 76 119/61 (80) 95 04/29/25 07:16 0 21 Result Diagram: 04/29/2541904/29/25419 Physical Exam General: Generalized weakness, awake, alert, oriented, at baseline, NAD HEENT: Normocephalic, PERRLA Neck: Supple, trachea midline, no JVD Chest: Clear to auscultation bilaterally Cardiovascular: RRR, S1&S2 GI: Soft and nontender Extremities: No cyanosis/clubbing/or edema FINISHER ACCORDION: No focal deficits Musculoskeletal: No paraspinal muscle tenderness, no muscle spasm Skin: Warm and intact Coagulation Studies Laboratory Tests Test 04/08/25 16:25 Prothrombin Time 11.9 SECONDS (9.0-12.0) INR International Normalized Ratio 1.2 INR Activated Partial Thromboplast Time 31 SECONDS (22-32) Coagulation Comments Problem\Assessment\Plan Assessment & Plan Aspiration pneumonia- POA Sepsis 2/2 above Acute hypoxic respiratory failure 2/2 PNA- not POA Status epilepticus Hx epilepsy Developmental delay Right side encephalomalacia History of glioblastoma removal Metabolic encephalopathy -continue tube feeding, abx, IV antiepileptics -04/13: seizure that lasted approximately 10 seconds. Given 4mg IV Ativan and continued on IV Keppra. Serum Na 128, start Lasix, continued on IV NS. Pending lumbar puncture analysis. Tele sinus in 100s. -follow osmolality studies -04/14: episode of grand mal seizure in am, given 4mg IV Ativan and continued on IV Keppra. Case discussed with neurologist Dr. Butterfield with recommendation for lacosamide and acyclovir as an add-on therapy.CSF result pending. Fever likely neurogenic. -04/15: Afebrile. Mental status still depressed, no active seizure episodes today. Case discussed with teleneurologist on the phone with recommendation for increased dose of Keppra and continued lacosamide and acyclovir. Tele sinus in . Ordered EEG again. -04/16: persistent depressed mentation, neurology consult requested -04/17: afebrile, MRI head w&wo contrast shows no acute cerebrovascular ischemia, right frontotemporal encephalomalacia; pending lumbar puncture and EEG -04/18: Likely post-ictal confusion, pending lumbar puncture and EEG per neurologist recommendation, pending transfer -04/19: pending transfer for lumbar puncture per neurologist recommendation 04/19/25- patient is currently afebrile last fever he had was on April 18, 2025. EEG normal.He was also started on Acyclovir for possible encephalitis and an LP is pending. 04/21 status post lumbar puncture today at [facility] awaiting the results of the lumbar puncture labs- the patient is speaking in one-word responses- the patient remains afebrile and normal white blood cell count discontinue Rocephin and vancomycin Remains on IV Vimpat and IV Keppra 04/22 Martinez NARVAEZ from the patient's board and care was able to elicit information with the patient and thus the patient is started on a pureed diet. Had spoken earlier in the day to Martinez about obtaining a PEG tube. The last time the patient was hospitalized for weak she is going to work with staff from the board and care with a come in and strongly encouraged the patient which was required last hospitalization 04/23 in his significantly weak with physical therapy and required two person assist, the patient however is able to tolerate a chopped diet with thin liquids in his diet is advanced 04/24 restraints are reordered as the patient has pulled out IVs- the patient is significantly constipated start scheduled lactulose parents suppositories mineral oil enema now and daily 04/25 continues to have a large stool burden that has not had a bowel movement yet even though multiple bowel regimen medications has been administered. He did better with activities with physical therapy today including standing in his more communicative today as well 04/26 we still do not have the lumbar puncture lab results back however the patient is significantly improved and is able to speak and a few words in his tolerating a chopped diet the patient remains weak however did improve both on the and the in regards to activities with physical therapy. Martinez NARVAEZ director of the patient's residential home made it clear when I spoke with her on 04/22 that they want the patient back. At that time I discussed possible PEG tube placement however the patient now is tolerating chopped diet without any difficulties. 04/27 tolerating oral diet well, continue PT until cleared for discharge to residential home 9 CM working on get[employer] and reclining wheelchair. Pending approval prior discharge. Date of Service: Apr 29, 2025 Billing Provider: TAMMY HANSON Common Visit Codes: [id number] INP/OBS CARE(HIGH) TAMMY HANSON Apr 29, 2025 13:41
[2025-04-29] MEDS: lactose-reduced food (Ensure Enlive) - 237ml bottle PO SCH (18:21)
[2025-04-30] VITALS (12 sets, daily range): BP systolic 101–156; BP diastolic 55–82; PULSE 66–106; RESP 14–20; TEMP 97.2–99.4; O2SAT 92–100
[2025-04-30 04:52] LABS: MEAN PLATELET VOLUME 7.2 FL (7.4-10.4); RED CELL DISTRIBUTION WIDTH 15.1 % (11.5-14.5)
[2025-04-30 05:41] LABS: CREATININE 0.79 MG/DL (0.60-1.10); TOTAL CARBON DIOXIDE 26.5 MMOL/L (24-32); eCRCL 113 ML/MIN; eGFR > 90 ML/MIN
--- NOTE | 2025-04-30 14:09 | PROGRESS NOTE ---
Daily Progress Note Providers to CC ~ Antibiotic Timeout Antibiotic Ordered?: No Subjective No acute events overnight. Patient examined at bedside. No new complaints, not in acute distress. Vss, labs unremarkable. Patient is tolerating oral diet well. Vss, labs unremarkable. CM working on [employer] and reclining wheelchair. Pending approval prior discharge. Objective Vital Signs Date Time Temp Pulse Resp B/P (MAP) Pulse Ox O2 Delivery O2 Flow Rate FiO2 04/30/25 11:04 97 18 94 Room Air* 0 21 04/30/25 11:00 98.9 115/78 (90) Result Diagram: 04/30/2542804/30/25428 Physical Exam General: Generalized weakness, awake, alert, oriented, verbal, at baseline, NAD HEENT: Normocephalic, PERRLA Neck: Supple, trachea midline, no JVD Chest: Clear to auscultation bilaterally Cardiovascular: RRR, S1&S2 GI: Soft and nontender Extremities: No cyanosis/clubbing/or edema CONVOLUTE TUBE WINDER: No focal deficits Musculoskeletal: No paraspinal muscle tenderness, no muscle spasm Skin: Warm and intact Coagulation Studies Laboratory Tests Test 04/08/25 16:25 Prothrombin Time 11.9 SECONDS (9.0-12.0) INR International Normalized Ratio 1.2 INR Activated Partial Thromboplast Time 31 SECONDS (22-32) Coagulation Comments Problem\Assessment\Plan Assessment & Plan Aspiration pneumonia- POA Sepsis 2/2 above Acute hypoxic respiratory failure 2/2 PNA- not POA Status epilepticus Hx epilepsy Developmental delay Right side encephalomalacia History of glioblastoma removal Metabolic encephalopathy -continue tube feeding, abx, IV antiepileptics -04/13: seizure that lasted approximately 10 seconds. Given 4mg IV Ativan and continued on IV Keppra. Serum Na 128, start Lasix, continued on IV NS. Pending lumbar puncture analysis. Tele sinus in 100s. -follow osmolality studies -04/14: episode of grand mal seizure in am, given 4mg IV Ativan and continued on IV Keppra. Case discussed with neurologist Dr. Butterfield with recommendation for lacosamide and acyclovir as an add-on therapy.CSF result pending. Fever likely neurogenic. -04/15: Afebrile. Mental status still depressed, no active seizure episodes today. Case discussed with teleneurologist on the phone with recommendation for increased dose of Keppra and continued lacosamide and acyclovir. Tele sinus in . Ordered EEG again. -04/16: persistent depressed mentation, neurology consult requested -04/17: afebrile, MRI head w&wo contrast shows no acute cerebrovascular ischemia, right frontotemporal encephalomalacia; pending lumbar puncture and EEG -04/18: Likely post-ictal confusion, pending lumbar puncture and EEG per neurologist recommendation, pending transfer -04/19: pending transfer for lumbar puncture per neurologist recommendation 04/19/25- patient is currently afebrile last fever he had was on April 18, 2025. EEG normal.He was also started on Acyclovir for possible encephalitis and an LP is pending. 04/21 status post lumbar puncture today at [facility] awaiting the results of the lumbar puncture labs- the patient is speaking in one-word responses- the patient remains afebrile and normal white blood cell count discontinue Rocephin and vancomycin Remains on IV Vimpat and IV Keppra 04/22 Maritnez NARVAEZ from the patient's board and care was able to elicit information with the patient and thus the patient is started on a pureed diet. Had spoken earlier in the day to Martinez about obtaining a PEG tube. The last time the patient was hospitalized for weak she is going to work with staff from the board and care with a come in and strongly encouraged the patient which was required last hospitalization 04/23 in his significantly weak with physical therapy and required two person assist, the patient however is able to tolerate a chopped diet with thin liquids in his diet is advanced 04/24 restraints are reordered as the patient has pulled out IVs- the patient is significantly constipated start scheduled lactulose parents suppositories mineral oil enema now and daily 04/25 continues to have a large stool burden that has not had a bowel movement yet even though multiple bowel regimen medications has been administered. He did better with activities with physical therapy today including standing in his more communicative today as well 04/26 we still do not have the lumbar puncture lab results back however the patient is significantly improved and is able to speak and a few words in his tolerating a chopped diet the patient remains weak however did improve both on the and the in regards to activities with physical therapy. Martinez NARVAEZ director of the patient's residential home made it clear when I spoke with her on 04/22 that they want the patient back. At that time I discussed possible PEG tube placement however the patient now is tolerating chopped diet without any difficulties. 04/27 tolerating oral diet well, continue PT until cleared for discharge to residential home 04/28 CM working on [employer] and reclining wheelchair. Pending approval prior discharge. Date of Service: Apr 30, 2025 Billing Provider: TAMMY HANSON Common Visit Codes: [id number] INP/OBS CARE(MOD) TAMMY HANSON Apr 30, 2025 14:09
[2025-05-01] VITALS (10 sets, daily range): BP systolic 107–156; BP diastolic 53–77; PULSE 69–93; RESP 18–20; TEMP 97.8–98.7; O2SAT 93–100
[2025-05-01 06:02] LABS: MEAN PLATELET VOLUME 7.2 FL (7.4-10.4); RED CELL DISTRIBUTION WIDTH 15.3 % (11.5-14.5)
[2025-05-01 06:23] LABS: CREATININE 0.75 MG/DL (0.60-1.10); TOTAL CARBON DIOXIDE 27.5 MMOL/L (24-32); eCRCL 119 ML/MIN; eGFR > 90 ML/MIN
--- NOTE | 2025-05-01 12:31 | PROGRESS NOTE ---
Daily Progress Note Providers to CC ~ Antibiotic Timeout Antibiotic Ordered?: No Subjective No acute events overnight. Patient examined at bedside. No new complaints, not in acute distress. Vss, labs unremarkable. Patient is tolerating oral diet well. Vss, labs unremarkable. CM working on [employer] and reclining wheelchair. Pending approval prior to discharge. Objective Vital Signs Date Time Temp Pulse Resp B/P (MAP) Pulse Ox O2 Delivery O2 Flow Rate FiO2 05/01/25 12:07 74 19 94 Room Air* 0 21 05/01/25 06:45 98.7 108/64 (79) Result Diagram: 05/01/25 0515 05/01/25 0515 Physical Exam General: Generalized weakness, awake, alert, oriented, verbal, at baseline, NAD HEENT: Normocephalic, PERRLA Neck: Supple, trachea midline, no JVD Chest: Clear to auscultation bilaterally Cardiovascular: RRR, S1&S2 GI: Soft and nontender Extremities: No cyanosis/clubbing/or edema FISHER TERRAPIN: No focal deficits Musculoskeletal: No paraspinal muscle tenderness, no muscle spasm Skin: Warm and intact Coagulation Studies Laboratory Tests Test 04/08/25 16:25 Prothrombin Time 11.9 SECONDS (9.0-12.0) INR International Normalized Ratio 1.2 INR Activated Partial Thromboplast Time 31 SECONDS (22-32) Coagulation Comments Problem\Assessment\Plan Assessment & Plan Aspiration pneumonia- POA Sepsis 2/2 above Acute hypoxic respiratory failure 2/2 PNA- not POA Status epilepticus Hx epilepsy Developmental delay Right side encephalomalacia History of glioblastoma removal Metabolic encephalopathy -continue tube feeding, abx, IV antiepileptics -04/13: seizure that lasted approximately 10 seconds. Given 4mg IV Ativan and continued on IV Keppra. Serum Na 128, start Lasix, continued on IV NS. Pending lumbar puncture analysis. Tele sinus in 100s. -follow osmolality studies -04/14: episode of grand mal seizure in am, given 4mg IV Ativan and continued on IV Keppra. Case discussed with neurologist Dr. Butterfield with recommendation for lacosamide and acyclovir as an add-on therapy.CSF result pending. Fever likely neurogenic. -04/15: Afebrile. Mental status still depressed, no active seizure episodes today. Case discussed with teleneurologist on the phone with recommendation for increased dose of Keppra and continued lacosamide and acyclovir. Tele sinus in . Ordered EEG again. -04/16: persistent depressed mentation, neurology consult requested -04/17: afebrile, MRI head w&wo contrast shows no acute cerebrovascular ischemia, right frontotemporal encephalomalacia; pending lumbar puncture and EEG -04/18: Likely post-ictal confusion, pending lumbar puncture and EEG per neurologist recommendation, pending transfer -04/19: pending transfer for lumbar puncture per neurologist recommendation 04/19/25- patient is currently afebrile last fever he had was on April 18, 2025. EEG normal.He was also started on Acyclovir for possible encephalitis and an LP is pending. 04/21 status post lumbar puncture today at [facility] awaiting the results of the lumbar puncture labs- the patient is speaking in one-word responses- the patient remains afebrile and normal white blood cell count discontinue Rocephin and vancomycin Remains on IV Vimpat and IV Keppra 04/22 Martinez NARVAEZ from the patient's board and care was able to elicit information with the patient and thus the patient is started on a pureed diet. Had spoken earlier in the day to Martinez about obtaining a PEG tube. The last time the patient was hospitalized for weak she is going to work with staff from the board and care with a come in and strongly encouraged the patient which was required last hospitalization 04/23 in his significantly weak with physical therapy and required two person assist, the patient however is able to tolerate a chopped diet with thin liquids in his diet is advanced 04/24 restraints are reordered as the patient has pulled out IVs- the patient is significantly constipated start scheduled lactulose parents suppositories mineral oil enema now and daily 04/25 continues to have a large stool burden that has not had a bowel movement yet even though multiple bowel regimen medications has been administered. He did better with activities with physical therapy today including standing in his more communicative today as well 04/26 we still do not have the lumbar puncture lab results back however the patient is significantly improved and is able to speak and a few words in his tolerating a chopped diet the patient remains weak however did improve both on the and the in regards to activities with physical therapy. Martinez NARVAEZ director of the patient's residential home made it clear when I spoke with her on 04/22 that they want the patient back. At that time I discussed possible PEG tube placement however the patient now is tolerating chopped diet without any difficulties. 04/27 tolerating oral diet well, continue PT until cleared for discharge to residential home 04/28 CM working on [employer] and reclining wheelchair. Pending approval prior discharge. Date of Service: May 01, 2025 Billing Provider: TAMMY HANSON Common Visit Codes: [id number] INP/OBS CARE(MOD) TAMMY HANSON May 01, 2025 12:31
[2025-05-02] VITALS (8 sets, daily range): BP systolic 115–124; BP diastolic 68–91; PULSE 60–95; RESP 17–19; TEMP 96.9–98.8; O2SAT 93–99
[2025-05-02 05:57] LABS: MEAN PLATELET VOLUME 7.4 FL (7.4-10.4); RED CELL DISTRIBUTION WIDTH 15.5 % (11.5-14.5)
[2025-05-02 06:26] LABS: CREATININE 0.79 MG/DL (0.60-1.10); TOTAL CARBON DIOXIDE 28.7 MMOL/L (24-32); eCRCL 113 ML/MIN; eGFR > 90 ML/MIN
--- NOTE | 2025-05-02 10:01 | PROGRESS NOTE ---
Daily Progress Note Providers to CC ~ Antibiotic Timeout Antibiotic Ordered?: No Subjective No acute events overnight. Patient examined at bedside. No new complaints, not in acute distress. Vss, labs unremarkable. Patient is tolerating oral diet well. Vss, labs unremarkable. CM working on [employer] and reclining wheelchair. Pending approval prior to discharge. Objective Vital Signs Date Time Temp Pulse Resp B/P (MAP) Pulse Ox O2 Delivery O2 Flow Rate FiO2 05/02/25 06:52 98.8 60 18 116/68 (84) 96 Room Air 05/01/25 19:47 0 21 Result Diagram: 05/02/2545005/02/25450 Physical Exam General: Generalized weakness, awake, alert, oriented, verbal, at baseline, NAD HEENT: Normocephalic, PERRLA Neck: Supple, trachea midline, no JVD Chest: Clear to auscultation bilaterally Cardiovascular: RRR, S1&S2 GI: Soft and nontender Extremities: No cyanosis/clubbing/or edema PROJECTION ENGINEER: No focal deficits Musculoskeletal: No paraspinal muscle tenderness, no muscle spasm Skin: Warm and intact Coagulation Studies Laboratory Tests Test 04/08/25 16:25 Prothrombin Time 11.9 SECONDS (9.0-12.0) INR International Normalized Ratio 1.2 INR Activated Partial Thromboplast Time 31 SECONDS (22-32) Coagulation Comments Problem\Assessment\Plan Assessment & Plan Aspiration pneumonia- POA Sepsis 2/2 above Acute hypoxic respiratory failure 2/2 PNA- not POA Status epilepticus Hx epilepsy Developmental delay Right side encephalomalacia History of glioblastoma removal Metabolic encephalopathy -continue tube feeding, abx, IV antiepileptics -04/13: seizure that lasted approximately 10 seconds. Given 4mg IV Ativan and continued on IV Keppra. Serum Na 128, start Lasix, continued on IV NS. Pending lumbar puncture analysis. Tele sinus in 100s. -follow osmolality studies -04/14: episode of grand mal seizure in am, given 4mg IV Ativan and continued on IV Keppra. Case discussed with neurologist Dr. Butterfield with recommendation for lacosamide and acyclovir as an add-on therapy.CSF result pending. Fever likely neurogenic. -04/15: Afebrile. Mental status still depressed, no active seizure episodes today. Case discussed with teleneurologist on the phone with recommendation for increased dose of Keppra and continued lacosamide and acyclovir. Tele sinus in . Ordered EEG again. -04/16: persistent depressed mentation, neurology consult requested -04/17: afebrile, MRI head w&wo contrast shows no acute cerebrovascular ischemia, right frontotemporal encephalomalacia; pending lumbar puncture and EEG -04/18: Likely post-ictal confusion, pending lumbar puncture and EEG per neurologist recommendation, pending transfer -04/19: pending transfer for lumbar puncture per neurologist recommendation 04/19/25- patient is currently afebrile last fever he had was on April 18, 2025. EEG normal.He was also started on Acyclovir for possible encephalitis and an LP is pending. 04/21 status post lumbar puncture today at [facility] awaiting the results of the lumbar puncture labs- the patient is speaking in one-word responses- the patient remains afebrile and normal white blood cell count discontinue Rocephin and vancomycin Remains on IV Vimpat and IV Keppra 04/22 Martinez NARVAEZ from the patient's board and care was able to elicit information with the patient and thus the patient is started on a pureed diet. Had spoken earlier in the day to Martinez about obtaining a PEG tube. The last time the patient was hospitalized for weak she is going to work with staff from the board and care with a come in and strongly encouraged the patient which was required last hospitalization 04/23 in his significantly weak with physical therapy and required two person assist, the patient however is able to tolerate a chopped diet with thin liquids in his diet is advanced 04/24 restraints are reordered as the patient has pulled out IVs- the patient is significantly constipated start scheduled lactulose parents suppositories mineral oil enema now and daily 04/25 continues to have a large stool burden that has not had a bowel movement yet even though multiple bowel regimen medications has been administered. He did better with activities with physical therapy today including standing in his more communicative today as well 04/26 we still do not have the lumbar puncture lab results back however the patient is significantly improved and is able to speak and a few words in his tolerating a chopped diet the patient remains weak however did improve both on the and the in regards to activities with physical therapy. Martinez NARVAEZ director of the patient's residential home made it clear when I spoke with her on 04/22 that they want the patient back. At that time I discussed possible PEG tube placement however the patient now is tolerating chopped diet without any difficulties. 04/27 tolerating oral diet well, continue PT until cleared for discharge to residential home 9/ CM working on [employer] and reclining wheelchair. Pending approval prior discharge. Date of Service: May 02, 2025 Billing Provider: TAMMY HANSON Common Visit Codes: [id number] INP/OBS CARE(MOD) TAMMY HANSON May 02, 2025 10:01
[2025-05-03] VITALS (8 sets, daily range): BP systolic 115–127; BP diastolic 77–87; PULSE 68–93; RESP 16–19; TEMP 97.3–98.3; O2SAT 93–98
[2025-05-03 05:42] LABS: MEAN PLATELET VOLUME 7.7 FL (7.4-10.4); RED CELL DISTRIBUTION WIDTH 15.1 % (11.5-14.5)
[2025-05-03 06:04] LABS: CREATININE 0.83 MG/DL (0.60-1.10); TOTAL CARBON DIOXIDE 30.7 MMOL/L (24-32); eCRCL 108 ML/MIN; eGFR > 90 ML/MIN
[2025-05-03 06:16] LABS: EOSINOPHILS % (MANUAL) 1.0 % (0-6); LYMPHOCYTES % (MANUAL) 43.0 % (21-51); MONOCYTES % (MANUAL) 5.0 % (2-12); NEUTROPHILS % (MANUAL) 50.0 % (42-75); REACTIVE LYMPHOCYTES % 1.0 % (0-0)
[2025-05-03 06:17] LABS: PLATELET ESTIMATE NORMAL
--- NOTE | 2025-05-03 14:07 | PROGRESS NOTE ---
Daily Progress Note Providers to CC ~ Antibiotic Timeout Antibiotic Ordered?: No Subjective No acute events overnight. Patient examined at bedside. No new complaints, not in acute distress. Vss, labs unremarkable. Patient is tolerating oral diet well. Vss, labs unremarkable. CM working on [employer] and reclining wheelchair. Pending approval prior to discharge. Objective Vital Signs Date Time Temp Pulse Resp B/P (MAP) Pulse Ox O2 Delivery O2 Flow Rate FiO2 05/03/25 10:59 97.3 93 16 127/77 (94) 94 Room Air 05/03/25 04:22 0 21 Result Diagram: 05/03/256 05/03/25435 Physical Exam General: Generalized weakness, awake, alert, oriented, verbal, at baseline, NAD HEENT: Normocephalic, PERRLA Neck: Supple, trachea midline, no JVD Chest: Clear to auscultation bilaterally Cardiovascular: RRR, S1&S2 GI: Soft and nontender Extremities: No cyanosis/clubbing/or edema CUSTOMER RELATIONS REPRESENTATIVE: No focal deficits Musculoskeletal: No paraspinal muscle tenderness, no muscle spasm Skin: Warm and intact Coagulation Studies Laboratory Tests Test 04/08/25 16:25 Prothrombin Time 11.9 SECONDS (9.0-12.0) INR International Normalized Ratio 1.2 INR Activated Partial Thromboplast Time 31 SECONDS (22-32) Coagulation Comments Problem\Assessment\Plan Assessment & Plan Aspiration pneumonia- POA Sepsis 2/2 above Acute hypoxic respiratory failure 2/2 PNA- not POA Status epilepticus Hx epilepsy Developmental delay Right side encephalomalacia History of glioblastoma removal Metabolic encephalopathy -continue tube feeding, abx, IV antiepileptics -04/13: seizure that lasted approximately 10 seconds. Given 4mg IV Ativan and continued on IV Keppra. Serum Na 128, start Lasix, continued on IV NS. Pending lumbar puncture analysis. Tele sinus in 100s. -follow osmolality studies -04/14: episode of grand mal seizure in am, given 4mg IV Ativan and continued on IV Keppra. Case discussed with neurologist Dr. Butterfield with recommendation for lacosamide and acyclovir as an add-on therapy.CSF result pending. Fever likely neurogenic. -04/15: Afebrile. Mental status still depressed, no active seizure episodes today. Case discussed with teleneurologist on the phone with recommendation for increased dose of Keppra and continued lacosamide and acyclovir. Tele sinus in . Ordered EEG again. -04/16: persistent depressed mentation, neurology consult requested -04/17: afebrile, MRI head w&wo contrast shows no acute cerebrovascular ischemia, right frontotemporal encephalomalacia; pending lumbar puncture and EEG -04/18: Likely post-ictal confusion, pending lumbar puncture and EEG per neurologist recommendation, pending transfer -04/19: pending transfer for lumbar puncture per neurologist recommendation 04/19/25- patient is currently afebrile last fever he had was on April 18, 2025. EEG normal.He was also started on Acyclovir for possible encephalitis and an LP is pending. 04/21 status post lumbar puncture today at [facility] awaiting the results of the lumbar puncture labs- the patient is speaking in one-word responses- the patient remains afebrile and normal white blood cell count discontinue Rocephin and vancomycin Remains on IV Vimpat and IV Keppra 04/22 Martinez NARVAEZ from the patient's board and care was able to elicit information with the patient and thus the patient is started on a pureed diet. Had spoken earlier in the day to Martinez about obtaining a PEG tube. The last time the patient was hospitalized for weak she is going to work with staff from the board and care with a come in and strongly encouraged the patient which was required last hospitalization 04/23 in his significantly weak with physical therapy and required two person assist, the patient however is able to tolerate a chopped diet with thin liquids in his diet is advanced 04/24 restraints are reordered as the patient has pulled out IVs- the patient is significantly constipated start scheduled lactulose parents suppositories mineral oil enema now and daily 04/25 continues to have a large stool burden that has not had a bowel movement yet even though multiple bowel regimen medications has been administered. He did better with activities with physical therapy today including standing in his more communicative today as well 04/26 we still do not have the lumbar puncture lab results back however the patient is significantly improved and is able to speak and a few words in his tolerating a chopped diet the patient remains weak however did improve both on the and the in regards to activities with physical therapy. Martinez NARVAEZ director of the patient's residential home made it clear when I spoke with her on 04/22 that they want the patient back. At that time I discussed possible PEG tube placement however the patient now is tolerating chopped diet without any difficulties. 04/27 tolerating oral diet well, continue PT until cleared for discharge to residential home 04/28 CM working on [employer] and reclining wheelchair. Pending approval prior discharge. Date of Service: May 03, 2025 Billing Provider: TAMMY HANSON Common Visit Codes: [id number] INP/OBS CARE(MOD) TAMMY HANSON May 03, 2025 14:07
[2025-05-04 04:28] LABS: MEAN PLATELET VOLUME 7.5 FL (7.4-10.4); RED CELL DISTRIBUTION WIDTH 15.4 % (11.5-14.5)
[2025-05-04 04:39] LABS: CREATININE 0.54 MG/DL (0.60-1.10); TOTAL CARBON DIOXIDE 28.3 MMOL/L (24-32); eCRCL 165 ML/MIN; eGFR > 90 ML/MIN
[2025-05-04 07:54] VITALS: PULSE 60; RESP 14; O2SAT 94
[2025-05-04 10:00] VITALS: BP 118/81; PULSE 80; RESP 18; TEMP 97.8; O2SAT 93
[2025-05-04 12:20] VITALS: BP 139/87; PULSE 85; RESP 18; TEMP 98; O2SAT 96
[2025-05-04 12:35] VITALS: BP 138/78; PULSE 72; RESP 16; TEMP 97.8; O2SAT 92
[2025-05-04 12:50] VITALS: BP 121/83; PULSE 75; RESP 16; TEMP 97.9; O2SAT 94
[2025-05-04 13:05] VITALS: BP 113/63; PULSE 61; RESP 18; TEMP 98; O2SAT 95
--- NOTE | 2025-05-04 13:23 | RADIOLOGY REPORT ---
EXAM: CT CT HEAD INDICATION: fall , hit his head TECHNIQUE: CT of the head without intravenous contrast. Radiation Dose : 1. Head: CT Dose: CTDI volume is 65 mGy. Dose-length product is 1234.6 mGy*cm The dose indicators for CT are the volume Computed Tomography (CT) Dose Index (CTDIvol) and the Dose Length Product (DLP), and are measured in units of mGy and mGy-cm, respectively. These indicators are not patient dose, but values generated from the CT scanner acquisition factors. The report includes radiation exposure data for exposures received during this examination. COMPARISON: MR MRI HEAD on DOS: 04/17/25, MR MRI HEAD on DOS: 04/09/25, CT CT HEAD on DOS: 04/08/25, MR MRI HEAD on DOS: 12/21/24, CT HEAD on DOS: 07/03/22 FINDINGS: There is no evidence of acute intracranial hemorrhage, extra-axial collection, mass effect, midline shift, herniation or hydrocephalus. Right temporal lobe and right frontal lobe encephalomalacia. The ventricles, sulci and cisterns are age appropriate. The jenkins-white differentiation is intact. Patchy periventricular and subcortical white matter hypoattenuation is nonspecific but may be related to small vessel ischemic disease. The visualized paranasal sinuses and mastoid air cells are clear. Right frontotemporal craniotomy. IMPRESSION: No acute intracranial abnormality. Radiation optimization: All CT scans at this facility use at least one of these dose optimization techniques: automated exposure control mA and/or kV adjustment per patient size (includes targeted exams where dose is matched to clinical indication) or iterative reconstruction.
--- NOTE | 2025-05-04 19:55 | PROGRESS NOTE ---
Daily Progress Note Providers to CC ~ Subjective patient was seen early this morning he appeared lethargic I told the nursing staff to put the patient on reclining chair and take care of fall precautions. physical therapy did put the patient on reclining chair. Later today nursing staff called me that patient had a fall I ordered the CT head which showed no acute intracranial abnormality. I did not put any discharge orders for the patient but later today patient was discharged without any discharge orders and instructions Objective Vital Signs Date Time Temp Pulse Resp B/P (MAP) Pulse Ox O2 Delivery O2 Flow Rate FiO2 05/04/25 13:05 98.0 61 18 113/63 (80) 95 Room Air 05/04/25 07:54 0 21 Result Diagram: 05/04/25 0401 05/04/25 0401 General-patient not in any acute distress, chronically ill-appearing, appeared very lethargic HEENT-atraumatic normocephalic, neck supple without elevated JVD, no thyromegaly or carotid bruit. No lymphadenopathy bilaterally. Eyes-no icterus or pallor seen in eyes Chest-clear to auscultation bilaterally, breathing nonlabored no tachypnea, no wheezing, no crepitation, no crackles. Heart-S1-S2 normal, regular heart rate no murmur Abdomen bowel sounds positive on auscultation, soft nondistended nontender no guarding, no rigidity Skin no active skin rash Neurology-grossly intact, nonfocal, very lethargic not able to communicate his needs Extremity- no pedal edema Coagulation Studies Laboratory Tests Test 04/08/25 16:25 Prothrombin Time 11.9 SECONDS (9.0-12.0) INR International Normalized Ratio 1.2 INR Activated Partial Thromboplast Time 31 SECONDS (22-32) Coagulation Comments Problem\Assessment\Plan Assessment & Plan Aspiration pneumonia- POA Sepsis 2/2 above Acute hypoxic respiratory failure 2/2 PNA- not POA Status epilepticus Hx epilepsy Developmental delay Right side encephalomalacia History of glioblastoma removal Metabolic encephalopathy -continue tube feeding, abx, IV antiepileptics -04/13: seizure that lasted approximately 10 seconds. Given 4mg IV Ativan and continued on IV Keppra. Serum Na 128, start Lasix, continued on IV NS. Pending lumbar puncture analysis. Tele sinus in 100s. -follow osmolality studies -04/14: episode of grand mal seizure in am, given 4mg IV Ativan and continued on IV Keppra. Case discussed with neurologist Dr. Butterfield with recommendation for lacosamide and acyclovir as an add-on therapy.CSF result pending. Fever likely neurogenic. -04/15: Afebrile. Mental status still depressed, no active seizure episodes today. Case discussed with teleneurologist on the phone with recommendation for increased dose of Keppra and continued lacosamide and acyclovir. Tele sinus in . Ordered EEG again. -04/16: persistent depressed mentation, neurology consult requested -04/17: afebrile, MRI head w&wo contrast shows no acute cerebrovascular ischemia, right frontotemporal encephalomalacia; pending lumbar puncture and EEG -04/18: Likely post-ictal confusion, pending lumbar puncture and EEG per neurologist recommendation, pending transfer -04/19: pending transfer for lumbar puncture per neurologist recommendation 04/19/25- patient is currently afebrile last fever he had was on April 18, 2025. EEG normal.He was also started on Acyclovir for possible encephalitis and an LP is pending. 04/21 status post lumbar puncture today at [facility] awaiting the results of the lumbar puncture labs- the patient is speaking in one-word responses- the patient remains afebrile and normal white blood cell count discontinue Rocephin and vancomycin Remains on IV Vimpat and IV Keppra 04/22 Martinez NARVAEZ from the patient's board and care was able to elicit information with the patient and thus the patient is started on a pureed diet. Had spoken earlier in the day to Martinez about obtaining a PEG tube. The last time the patient was hospitalized for weak she is going to work with staff from the board and care with a come in and strongly encouraged the patient which was required last hospitalization 04/23 in his significantly weak with physical therapy and required two person assist, the patient however is able to tolerate a chopped diet with thin liquids in his diet is advanced 04/24 restraints are reordered as the patient has pulled out IVs- the patient is significantly constipated start scheduled lactulose parents suppositories mineral oil enema now and daily 04/25 continues to have a large stool burden that has not had a bowel movement yet even though multiple bowel regimen medications has been administered. He did better with activities with physical therapy today including standing in his more communicative today as well 04/26 we still do not have the lumbar puncture lab results back however the patient is significantly improved and is able to speak and a few words in his tolerating a chopped diet the patient remains weak however did improve both on the and the in regards to activities with physical therapy. Martinez NARVAEZ director of the patient's residential home made it clear when I spoke with her on 04/22 that they want the patient back. At that time I discussed possible PEG tube placement however the patient now is tolerating chopped diet without any difficulties. 04/27 tolerating oral diet well, continue PT until cleared for discharge to residential home 04/28 CM working on [employer] sophie and reclining wheelchair. Pending approval prior discharge. 05/04- patient was seen early this morning he appeared lethargic I told the nursing staff to put the patient on reclining chair and take care of fall precautions. physical therapy did put the patient on reclining chair. Later today nursing staff called me that patient had a fall I ordered the CT head which showed no acute intracranial abnormality. I did not put any discharge orders for the patient but later today patient was discharged without any discharge orders and instructions Date of Service: May 04, 2025 Billing Provider: SHAUNA VAZQUEZ MD Common Visit Codes: [id number] INP/OBS CARE(HIGH) SHAUNA VAZQUEZ MD May 04, 2025 19:55
== END 2025-05-04 16:50 | disposition home health service (06) | DRG 720 ==
LOC: ER 16:04 → ED HOLD 18:31 → PCU 3S 23:06 → SUR 3N 04-24 14:44
PROVIDERS: ADMIT Family Medicine; ATTEND Family Medicine
PROC: 4A00X4Z Measurement of Central Nervous Electrical Activity, External Approach (ICD-10-PCS; principal; 2025-04-09)
PROC: 4A00X4Z Measurement of Central Nervous Electrical Activity, External Approach (ICD-10-PCS; 2025-04-19)
DX: A41.9 Sepsis, unspecified organism (principal); J69.0 Pneumonitis due to inhalation of food and vomit; G93.41 Metabolic encephalopathy; G40.901 Epilepsy, unspecified, not intractable, with status epilepticus; J15.69 Pneumonia due to other Gram-negative bacteria; J96.01 Acute respiratory failure with hypoxia; G93.89 Other specified disorders of brain; F41.9 Anxiety disorder, unspecified; I10 Essential (primary) hypertension; J15.9 Unspecified bacterial pneumonia; R62.59 Other lack of expected normal physiological development in childhood; Z85.841 Personal history of malignant neoplasm of brain; Z79.899 Other long term (current) drug therapy
CPT/HCPCS: 36415; 36600; 70450; 70551; 70553; 71045; 71250; 74018; 74176; 80048; 80053; 80164; 80177; 80202; 80305; 80320; 81001; 82140; 82550; 82607; 82803; 82948; 83605; 83735; 83880; 83930; 83935; 84100; 84134; 84145; 84300; 84443; 85007; 85018; 85025; 85610; 85651; 85730; 86140; 87040; 87081; 87529; 92508; 92616; 93005; 94640; 94664; 94668; 94760; 95816; 96361; 96365; 97110; 97116; 97162; 97530; 99285; A4314; A4615; A4620; A4624; A5200; A6212; A6213; A6250; A6258; A6455; A6590; C9254; G0378; J0131; J0133; J0456; J0696; J1644; J1815; J1938; J1953; J2060; J3373; J3374; J3375; J3480; J7030; J7040; J7050; J7070; J7120

== ENCOUNTER 2025-05-17 07:56 | Inpatient (IN) | payer MEDICAID ==
[~2025-05-17] VITALS: Ht 175.3 cm; Wt 79.0 kg
[~2025-05-17 07:56] MED LIST changes: -ACET325C3 PO; +ARIP20TA63 PO; +ASPI81TA52 PO; +ATOR20TA PO; -CARB15DR91 RIGHT EAR; -CETI10CA PO; +CITA-178 PO; -DIVA500T2 PO; -FISH12002 PO; +LACO50TA2 PO; +LEVE250T PO; -LEVE500T PO; +PANT40TA54 PO
--- NOTE | 2025-05-17 08:44 | ELECTROCARDIOGRAPH REPORT ---
[facility] Test Date: 2025-05-17 Test Time: 08:40:25 Pat Name: KRISTY ROBERTO Department: [facility]- Patient ID: [id number] Room: Gender: M Director Of [employer]: : 1975 Requested By: PAXTON MCNEIL Order Number: [id number] Reading MD: Measurements Intervals [place]: 89 P: 53 OR: 141 QRS: -7 QRSD: 84 T: 90 QT: 338 QTc: 412 Interpretive Statements Sinus rhythm Abnormal R-wave progression, early transition Nonspecific T abnormalities, lateral leads Baseline wander in lead(s) II,III,aVF Please click the below link to view image of tracing.
--- NOTE | 2025-05-17 08:46 | RADIOLOGY REPORT ---
EXAM: DI CHEST,SINGLE VIEW Indication: weakness Technique: Single frontal view of the chest was obtained Comparison: DI CHEST,SINGLE VIEW on DOS: 04/15/25, DI CHEST,SINGLE VIEW on DOS: 04/14/25, DI CHEST,SINGLE VIEW on DOS: 04/12/25, DI CHEST,SINGLE VIEW on DOS: 04/10/25, CT CT CHEST ABDOMEN PELVIS on DOS: 04/08/25 FINDINGS: Lines and Tubes: None Lungs: No focal consolidation. Pleura: No effusion. No pneumothorax. Cardiomediastinal contours: Unremarkable Bones: No acute osseous abnormality. IMPRESSION: No acute cardiopulmonary disease.
[2025-05-17 09:15] LABS: MEAN PLATELET VOLUME 7.9 FL (7.4-10.4); RED CELL DISTRIBUTION WIDTH 15.8 % (11.5-14.5)
[2025-05-17 09:19] LABS: APTT 30 SECONDS (22-32); INR 1.2 INR
[2025-05-17 09:24] LABS: CREATININE 0.58 MG/DL (0.60-1.10); TOTAL CARBON DIOXIDE 26.9 MMOL/L (24-32); eCRCL 154 ML/MIN; eGFR > 90 ML/MIN
[2025-05-17 09:35] LABS: CREATINE KINASE MB 0.5 ng/ml (0.3-3.6)
[2025-05-17 10:07] LABS: LEUKOCYTE ESTERASE ,URINE NEGATIVE (Neg); NITRITES, URINE NEGATIVE (Neg); OCCULT BLOOD,URINE TRACE-INTACT (Neg)
[2025-05-17 10:12] LABS: UA COLLECTION TYPE STRAIGHT CATH
--- NOTE | 2025-05-17 10:24 | Physician Documentation ---
History of Present Illness ~ Chief Complaint: Weakness Stated Complaint: ALOC Time Seen by MD: 08:26 OK to notify your PCP?: Yes Primary Medical Doctor: [facility] Mode of Arrival: EMS HPI 49-year-old male presenting with altered level of consciousness. The patient can not provide history this history was obtained from caregiver. She states that over the past 2-3 days the patient has been has been altered off of his baseline. She reports that he usually converses in his able to walk on his own however he has been in bed and unable to walk. Additionally he has been very confused and has not been speaking. Patient has also been intermittently very somnolent. He is normally slightly mentally delayed but this is very different from his baseline. The patient has a history of glioblastoma which was operated on twice in the past. No reports of any nausea, vomiting, fever, chills or other associated symptoms. Medication Reconciliation Allergies: Coded Allergies: No Known Allergies (Unverified , 04/08/25) Scheduled Aspirin (Aspirin EC), 1 TAB PO DAILY Atorvastatin Calcium (Lipitor), 1 TAB PO DAILY, (Reported) Citalopram Hydrobromide* (Celexa*), 1 TAB PO DAILY, (Reported) Lacosamide (Vimpat), 100 MG PO BID Levetiracetam (Levetiracetam), 1,500 MG PO BID Olanzapine* (Zyprexa Zydis Odt*), 1 TAB PO HS, (Reported) Pantoprazole Sodium (Pantoprazole Sodium), 40 MG PO DAILY Scheduled PRN Albuterol Sulfate (Proair Hfa), 2 PUFFS IH Q4H PRN for SOB or wheezing Aripiprazole (Aripiprazole), 1 TAB PO HSPRN PRN for sleep, (Reported) Past Medical History Past Medical History: Seizures, *CANCER*, Anxiety Past Surgical History: brain surgery, cancer surgery Patient History: Patient reports no known family medical history. Alcohol Use: None Drug Use: none Lives with: Other Lives In: Assisted Care Occupation: disabled Review of Systems All Other Systems at this time: Reviewed and Negative Physical Exam Vital Signs: Temperature: 98.7, Source: Oral, Heart Rate: 84, Respiratory Rate: 18, BP: 121/86, Pulse Oximetry: 97, Weight: 86.000 Oxygen Flow Rate: 1.0 Physical Exam I have reviewed the triage vitals. CONST: Well developed and well nourished. In no acute distress HENT: Cranial surgical scars present EYES: Pupils are equal, round and reactive to light. Normal conjunctiva NECK: Normal range of motion. Supple. CARDIO: Normal rate and regular rhythm. No murmurs, rubs, or gallops. S1, S2. PULM/CHEST: No respiratory distress. Lungs clear to auscultation. No wheeze ABD: Soft and nontender. Nondistended. Bowel sounds normal. No guarding. : Exam deferred MSK: No edema. No deformity. NEURO: Awake but not alert, selectively follows commands. No facial droop appreciated. Cranial nerves appear normal. unable to perform full neuro exam due to patient's status SKIN: Warm and dry. PSYCH: Cooperative, pleasant Progress Results/Orders Results/Orders Orders - PAXTON MCNEIL MD Culture Blood (05/17/25 08:26) Chest,Single View (05/17/25 08:26) Straight Cath For Urine Sample (05/17/25 08:26) * Oxygen Route-Nasal Cannula * (05/17/25 08:00) Ct Head (05/17/25 12:05) Cta Neck/Head (05/17/25 12:05) [employer] Prov.Neuro Consult (05/17/25 13:20) Page Hospitalist (05/17/25 15:08) Fill Out Med Reconciliation (05/17/25 15:08) Completed Orders - PAXTON MCNEIL MD Electrocardiogram (05/17/25 08:26) Type And Screen (05/17/25 08:26) Cbc/Diff (05/17/25 08:26) CK (05/17/25 08:26) CKMB (05/17/25 08:26) Pt Inr (05/17/25 08:26) PTT (05/17/25 08:26) Chest,Single View (05/17/25 08:26) MG (05/17/25 08:26) Hs Troponin I W Calculations (05/17/25 08:26) CMP (05/17/25 08:26) Lacticsepsis (05/17/25 08:26) Ct Head (05/17/25 12:05) Cta Neck/Head (05/17/25 12:05) Iohexol 350mg/Ml 100ml (Omnipaque 350mg/ (05/17/25 10:08) Ua W/Microscopic, Cult If Ind (05/17/25 09:56) Hgb A1c (05/17/25 08:53) Vital Signs 05/17/25 05/17/25 05/17/25 05/17/25 08:02 08:21 09:00 09:42 Temp 98.7 Pulse 94 92 84 Resp 16 16 18 B/P (MAP) 123/81 140/84 (102) 121/86 (98) Pulse Ox 93 96 97 O2 Flow Rate 0 1.0 1.0 05/17/25 05/17/25 05/17/25 05/17/25 10:00 11:00 12:00 13:00 Pulse 77 75 87 77 Resp 20 14 18 18 B/P (MAP) 115/77 (90) 127/68 (87) 149/81 (103) 111/77 (88) Pulse Ox 98 99 97 99 O2 Flow Rate 1.0 1.0 1.0 0 05/17/25 05/17/25 14:00 15:00 Pulse 68 91 Resp 18 18 B/P (MAP) 124/71 (88) 131/108 (116) Pulse Ox 98 95 O2 Flow Rate 1.0 1.0 Laboratory Tests Test 05/17/25 08:48 05/17/25 08:52 05/17/25 08:53 05/17/25 09:56 Lactic Acid Level 0.6 White Blood Count 11.8 H Red Blood Count 4.59 L Hemoglobin 13.8 L Hematocrit 40.8 L Mean Corpuscular Volume 88.8 Mean Corpuscular Hemoglobin 30.1 Mean Corpuscular Hemoglobin Concent 33.9 Red Cell Distribution Width 15.8 H Platelet Count 203 Mean Platelet Volume 7.9 Neutrophils (%) (Auto) 74.2 Lymphocytes (%) (Auto) 11.2 L Monocytes (%) (Auto) 11.6 Eosinophils (%) (Auto) 2.5 Basophils (%) (Auto) 0.5 Neutrophils # (Auto) 8.8 H Lymphocytes # (Auto) 1.3 Monocytes # (Auto) 1.4 H Eosinophils # (Auto) 0.3 Basophils # (Auto) 0.1 CBC Comment Prothrombin Time 12.3 H INR International Normalized Ratio 1.2 Activated Partial Thromboplast Time 30 Coagulation Comments Sodium Level 144 Potassium Level 3.6 Chloride Level 105 Carbon Dioxide Level 26.9 Anion Gap 12 Blood Urea Nitrogen 22 H Creatinine 0.58 L Estimated GFR/1.73 m2 > 90 BUN/Creatinine Ratio 37.9 H Glucose Level 99 Hemoglobin A1c 5.5 Calcium Level 9.1 Magnesium Level 2.1 Total Bilirubin 0.5 Aspartate Amino Transf (AST/SGOT) 12 Alanine Aminotransferase (ALT/SGPT) 24 Alkaline Phosphatase 92 Total Creatine Kinase 60 Creatine Kinase MB 0.5 Creatine Kinase MB Relative Index Troponin I High Sensitivity 4 Total Protein 6.7 Albumin 2.8 L Globulin 3.9 Albumin/Globulin Ratio 0.7 L Chemistry Comments Urine Specimen Description Straight cath Urine Color Yellow Urine Clarity Clear Urine pH 6.0 Urine Specific [place] 1.020 Urine Protein 30 H Urine Glucose (UA) Negative Urine Ketones >=80 Urine Occult Blood Trace-intact Urine Nitrite Negative Urine Bilirubin Moderate Urine Urobilinogen 4.0 H Urine Leukocyte Esterase Negative Urine RBC 0-2 Urine WBC 0-4 Urine Squamous Epithelial Cells Few Urine Bacteria None seen Urine Mucus Moderate Urine Culture Indicated Not ind Volume Urine Centrifuged 10 ml Urine Comment Microbiology Date/Time Source Procedure Growth Status 05/17/25 08:53 Blood Arm Right Blood Culture - Preliminary NEGATIVE (LESS THAN 24 HOURS) Resulted EKG/XRAY/CT/US/VASC/MRI EKG : Additional Comment EKG as interpreted by me shows normal sinus rhythm with a rate of 89 beats per minute, normal axis, no ischemia Chest X-Ray : Additional Comments EXAM: DI CHEST,SINGLE VIEW Indication: weakness Technique: Single frontal view of the chest was obtained Comparison: DI CHEST,SINGLE VIEW on DOS: 04/15/25, DI CHEST,SINGLE VIEW on DOS: 04/14/25, DI CHEST,SINGLE VIEW on DOS: 04/12/25, DI CHEST,SINGLE VIEW on DOS: 04/10/25, CT CT CHEST ABDOMEN PELVIS on DOS: 04/08/25 FINDINGS: Lines and Tubes: None Lungs: No focal consolidation. Pleura: No effusion. No pneumothorax. Cardiomediastinal contours: Unremarkable Bones: No acute osseous abnormality. IMPRESSION: No acute cardiopulmonary disease. : Impression CLINICAL HISTORY: altered mental status, dysarthria TECHNIQUE: CT angiogram of the head and neck was performed without and with intravenous contrast. 3D MIP reconstructed images were created and archived on the PACS system. This exam was performed according to our departmental dose optimization program. Up-to-date CT equipment and radiation dose reduction techniques are utilized as appropriate. CTDI 34 DLP 635 COMPARISON: CT CT HEAD on DOS: 05/17/25, CT CT HEAD on DOS: 05/04/25, MR MRI HEAD on DOS: 04/17/25, MR MRI HEAD on DOS: 04/09/25, CT CT HEAD on DOS: 04/08/25 FINDINGS: CTA NECK: The common carotid, internal carotid, and vertebral arteries are patent with no evidence for high grade narrowing, occlusion, and dissection. There is no significant narrowing at the carotid bulbs per NASCET criteria. CTA HEAD: Of the bilateral internal carotid, middle cerebral, and left anterior cerebral arteries are patent with no evidence for high-grade narrowing, occlusion, or dissection. A majority of the right anterior cerebral artery is not seen. Some A4 branches are seen, likely due to collateral flow. The posterior intracranial circulations are intact with no evidence for high grade narrowing, occlusion, or aneurysm. There are mild stenoses of the left MCA and bilateral posterior cerebral artery segments. 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 CT brain without contrast CLINICAL INDICATION: r/o CVA Comparison: CT brain done 05/04/2025 FINDINGS: The study was performed in a multidetector scanner. This study performed taking axial images from the skull base up to the vertex. Both brain and bone windows are photographed. Dose lowering techniques have been used including automated exposure control and adjustment of mA and/or KV according to patient size. Encephalomalacia in the right temporal lobe and right frontal lobe. There is secondary dilatation of the frontal horn of the left lateral ventricle. There is an overlying craniotomy site There is a small calcification in the globus pallidus. No intraparenchymal hemorrhage or extra-axial hemorrhage IMPRESSION: 1. No change from previous CT scan. No acute intracranial hemorrhage or edema 2. Encephalomalacia in the right frontal and temporal lobes as on previous study Computed Tomographic Radiation Dosimetry Report: Total CTDI vol = 62 mGy Total DLP = 1208 mGy-cm All CT scans at this medical facility are performed using dose modulation techniques as appropriate to a performed exam including the following: Automated exposure control was utilized; adjustment of the MA and/or KvP according to patient size; and use of iterative reconstruction technique. Medical Decision Making Differential Dx:Considerations: Include: CVA, electrolyte imbalance, encephalopathy Additional Information 49-year-old male presenting with altered mental status. Head CT including a CT noncontrast and a CTA of the head and neck were both unremarkable aside from the area that was removed due to his craniotomy several years ago. There is no sign of any acute pathology at this time. Patient's lab work is also unremarkable. Patient however is significantly altered from his baseline. We did consult tele neurology who assessed the patient recommended the patient be admitted for an MRI and EEG because there is the potential that the patient may have had seizures versus pseudoseizures amongst other etiologies. Patient will be admitted to the hospitalist service for further treatment and care. Departure Disposition: ADMITTED INPATIENT Admitted to Inpatient Unit: to hospitalist Admission Level of Care: Neuro Impression: Primary Impression: Encephalopathy Condition: Guarded Referrals: NO PRIMARY CARE PROVIDER (PCP) Signature Scribe Signature: 1 Attestation: 1 PAXTON MCNEIL MD May 17, 2025 10:24
[2025-05-17 10:30] LABS: MUCUS STRANDS MODERATE /LPF (Neg); SQUAMOUS EPITHELIAL CELL,UR FEW /LPF (FEW)
--- NOTE | 2025-05-17 12:18 | RADIOLOGY REPORT ---
CT brain without contrast CLINICAL INDICATION: r/o CVA Comparison: CT brain done 05/04/2025 FINDINGS: The study was performed in a multidetector scanner. This study performed taking axial images from the skull base up to the vertex. Both brain and bone windows are photographed. Dose lowering techniques have been used including automated exposure control and adjustment of mA and/or KV according to patient size. Encephalomalacia in the right temporal lobe and right frontal lobe. There is secondary dilatation of the frontal horn of the left lateral ventricle. There is an overlying craniotomy site There is a small calcification in the globus pallidus. No intraparenchymal hemorrhage or extra-axial hemorrhage IMPRESSION: 1. No change from previous CT scan. No acute intracranial hemorrhage or edema 2. Encephalomalacia in the right frontal and temporal lobes as on previous study Computed Tomographic Radiation Dosimetry Report: Total CTDI vol = 62 mGy Total DLP = 1208 mGy-cm All CT scans at this medical facility are performed using dose modulation techniques as appropriate to a performed exam including the following: Automated exposure control was utilized; adjustment of the MA and/or KvP according to patient size; and use of iterative reconstruction technique.
--- NOTE | 2025-05-17 12:47 | RADIOLOGY REPORT ---
CLINICAL HISTORY: altered mental status, dysarthria TECHNIQUE: CT angiogram of the head and neck was performed without and with intravenous contrast. 3D MIP reconstructed images were created and archived on the PACS system. This exam was performed according to our departmental dose optimization program. Up-to-date CT equipment and radiation dose reduction techniques are utilized as appropriate. CTDI 34 DLP 635 COMPARISON: CT CT HEAD on DOS: 05/17/25, CT CT HEAD on DOS: 05/04/25, MR MRI HEAD on DOS: 04/17/25, MR MRI HEAD on DOS: 04/09/25, CT CT HEAD on DOS: 04/08/25 FINDINGS: CTA NECK: The common carotid, internal carotid, and vertebral arteries are patent with no evidence for high grade narrowing, occlusion, and dissection. There is no significant narrowing at the carotid bulbs per NASCET criteria. CTA HEAD: Of the bilateral internal carotid, middle cerebral, and left anterior cerebral arteries are patent with no evidence for high-grade narrowing, occlusion, or dissection. A majority of the right anterior cerebral artery is not seen. Some A4 branches are seen, likely due to collateral flow. The posterior intracranial circulations are intact with no evidence for high grade narrowing, occlusion, or aneurysm. There are mild stenoses of the left MCA and bilateral posterior cerebral artery segments. 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
--- NOTE | 2025-05-17 15:11 | CONSULTATION REPORT ---
History of Present Illness Providers to CC ~ Refering MD: KARSON Allergies: Coded Allergies: No Known Allergies (Unverified , 04/08/25) Home Medications Home Medications Active Pantoprazole Sodium 40 Mg Tablet.dr 40 Mg PO DAILY 30 Days Aspirin EC (Aspirin) 81 Mg Tablet.dr 1 Tab PO DAILY 30 Days Vimpat (Lacosamide) 50 Mg Tablet 100 Mg PO BID 90 Days Levetiracetam 250 Mg Tablet 1,500 Mg PO BID 90 Days Proair Hfa (Albuterol Sulfate) 1 Puff Inh 2 Puffs IH Q4H PRN Reported Celexa* (Citalopram Hydrobromide) 20 Mg Tablet 1 Tab PO DAILY 30 Days Aripiprazole 20 Mg Tablet 1 Tab PO HSPRN PRN 30 Days Lipitor (Atorvastatin Calcium) 20 Mg Tablet 1 Tab PO DAILY 30 Days Zyprexa Zydis Odt* (Olanzapine) 5 Mg Tab.rapdis 1 Tab PO HS DISSOLVE TABLET ON TONGUE. Past Family History Family History: Patient reports no known family medical history. Physical Exam Last Vital Signs Recorded: Temperature: 98.7, Source: Oral, Heart Rate: 68, Respiratory Rate: 18, BP: 124/71, Pulse Oximetry: 98, Weight: 86.000 Results Diagram Lab Result Diagram: 05/17/25 0852 05/17/25 0853 Assessment/Plan Additional Plan [place] [facility] Note # Demographics Consult Type: General Neurology Patient Location: Emergency Room First Name: Carlos Last Name: Gilbert Date of : 1975 Age: 49 Gender: Male Facility: [facility] Time of Initial Page ( Time): 05/17/2025 14:54 First Contact with Site ([place] Time): 05/17/2025 14:55 Phone Only Consult: 49 y/o M with hx of glioblastoma s/p surgical removal many years ago. Caregiver has noticed he is more altered than normal the last few days. Similar symptoms one month ago. CT head neg for acute changes. CTA similarly with likely chronic changes. No meningismus. Recommend MRI brain with and without gadolinium as well as EEG if patient continues to not return to baseline. Phone Agreement: - phone consult deemed mutually sufficient for patient care # Plan Other: - If patient has any neurological deterioration please call me back immediately # Logistics Attestation of consult completion: The patient is located at: [facility]. I performed this phone consultation from my offsite office Total time spent in telemedicine encounter: I spent 7 minutes in reviewing clinical data and/or imaging, obtaining history, communicating with the onsite care team, and in preparation of this report. # Demographics First Name: Carlos Last Name: Gilbert Facility: [facility] TRELL BARRETO MD May 17, 2025 15:11
[2025-05-17] MEDS ORDERED: potassium Cl 40MEQ/1/2NS 520ml 520 ML IV PRN (16:40)
[2025-05-17] MEDS ORDERED: morphine 4 MG/ML inj SYRINge IV PRN (16:40)
[2025-05-17] MEDS ORDERED: magnesium sulf-water 2g/50mL 50 ML IV PRN (16:40)
[2025-05-17] MEDS ORDERED: ondansetron/PF 4mg/2ml inj IV PRN (16:40)
[2025-05-17] MEDS ORDERED: HYDROcodone/acetaminophen 5mg/325mg tablet PO PRN (16:40)
[2025-05-17] MEDS ORDERED: mag hydrox/Alum hydrox/simeth 30ml oral suspension PO PRN (16:40)
[2025-05-17] MEDS ORDERED: magnesium sulf-water 4G/100mL 100 ML IV PRN (16:40)
[2025-05-17] MEDS ORDERED: magnesium Cl slow-release 64mg tablet PO PRN (16:40)
[2025-05-17] MEDS ORDERED: HYDROcodone/acetaminophen 10/325mg tab PO PRN (16:40)
[2025-05-17] MEDS ORDERED: potassium Cl 20 mEq SR tablet PO PRN ×2 (16:40)
[2025-05-17] MEDS ORDERED: albuterol 2.5 MG/3 ML nebule NEB PRN (16:50)
[2025-05-17] MEDS ORDERED: ipratropium/albuterol 3ml nebule NEB PRN (16:50)
[2025-05-17 17:14] VITALS: BP 133/79; PULSE 80; RESP 22; TEMP 98.1; O2SAT 99
--- NOTE | 2025-05-17 17:18 | HISTORY AND PHYSICAL-Residence ---
History & Physical Providers to CC Resident Creating Document: KACI SCHAEFERMEDARDO ~ History of Present Illness Primary Medical Doctor: [facility] Reason for Admit\\Complaint: ALTERED LEVEL OF CONSCIOUSNESS History of Present Illness Patient is a poor historian and barely communicates, History gathered from caregiver Martinez at bedside, ED sign-out and previous medical records. 49-year-old male who is developmentally delayed with history of seizures, bipolar disorder, GBM status post resection, asthma, hypothyroid, hyperlipidemia was brought to the ED by caregiver Martinez for concern of altered level of consciousness. Since last Saturday patient has not been at his baseline, was downsloping. He was not walking, eating or drinking. He was admitted here and discharged on 05/09, since discharge he has been having "good and bad days". Some days he does walk to the bathroom and move around, but on other days he is not able to do his usual activity. Caregiver is also concerned that he is acting like he is unable to chew/eat. She also noticed some stiffness in the jaw. He has history of chronic tremors in the hands, but tremors has been worsening and now he has associated tapping of both upper extremities. The above symptoms associated with cough, gargling sound, and fever this morning 100.7 F. Denies chills, nausea, vomiting, diarrhea, constipation, chest pain, shortness of breath. He has been having incontinence of bowel and bladder on and off. The frequency of incontinence has increased since his previous discharge. During his last admission Vimpat was added to the antiseizure medications. Does not have any drug allergies. Does not smoke or drink alcohol. Denies recreational drug use. He was fully independent per caregiver, he started using a wheelchair since previous discharge. Discussed advanced care directives and he is a full code. Allergies: Coded Allergies: No Known Allergies (Unverified , 04/08/25) Home Medications Home Medications Active Pantoprazole Sodium 40 Mg Tablet. 40 Mg PO DAILY 30 Days Aspirin EC (Aspirin) 81 Mg Tablet. 1 Tab PO DAILY 30 Days Vimpat (Lacosamide) 50 Mg Tablet 100 Mg PO BID 90 Days Levetiracetam 250 Mg Tablet 1,500 Mg PO BID 90 Days Proair Hfa (Albuterol Sulfate) 1 Puff Inh 2 Puffs IH Q4H PRN Reported Celexa* (Citalopram Hydrobromide) 20 Mg Tablet 1 Tab PO DAILY 30 Days Aripiprazole 20 Mg Tablet 1 Tab PO HSPRN PRN 30 Days Lipitor (Atorvastatin Calcium) 20 Mg Tablet 1 Tab PO DAILY 30 Days Zyprexa Zydis Odt* (Olanzapine) 5 Mg Tab.rapdis 1 Tab PO HS DISSOLVE TABLET ON TONGUE. 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 Past Social History Alcohol Use: None Drug Use: None Lives with: Other Lives In: Assisted Care Occupation: disabled ROS All Other Systems: Reviewed and Negative ROS Reviewed in full. All negative except for pertinent positive HPI. Exam Vitals: Vital Signs Date Time Temp Pulse Resp B/P (MAP) Pulse Ox O2 Delivery O2 Flow Rate FiO2 05/17/25 16:00 84 18 122/78 (93) 98 0 05/17/25 08:02 98.7 General: General: Awake and Alert x 0, no acute distress. HEENT: Conjunctiva pink, Sclera clear, Mucus Membranes dry. Mouth is poorly kept, and dry. Neck: Supple without masses and tenderness. Resp: Unlabored. Coarse breath sounds bilaterally. Heart: Regular rhythm, normal S1 and S2, no rub, murmur or gallop. Abdomen: Soft and non tender no organomegaly. Normal bowel sounds x4 quadrant normoactive. No guarding or rigidity. Extremities: No cyanosis,clubbing or edema. S/p amputation of the right hand distal 3rd digit. Musculoskeletal: Unable to determine gait. No joint swelling, deformity or tenderness, decreased range of motion and strength 2/5 in all extremities. 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 Unable to do a complete neuro exam as the patient is not cooperative and does not follow commands. Decreased strength in bilateral upper and lower extremities. Skin: Warm and Dry. Diagnostic Data Last Recorded Lab Results: 05/17/25 0852 05/17/25 0853 Diagnostic Data: Laboratory Tests Test 05/17/25 08:53 Prothrombin Time 12.3 SECONDS (9.0-12.0) H INR International Normalized Ratio 1.2 INR Activated Partial Thromboplast Time 30 SECONDS (22-32) Coagulation Comments Advance Care Planning Advanced Care plannin - 30 Minutes Additional Plan Patient is a poor historian and barely communicates, History gathered from caregiver Martinez at bedside, ED sign-out and previous medical records. 49-year-old male who is developmentally delayed with history of seizures, bipolar disorder, GBM status post resection, asthma, hypothyroid, hyperlipidemia was brought to the ED by caregiver Martinez for concern of altered level of consciousness. Altered level of consciousness Metabolic encephalopathy Patient is apparently not at baseline per caregiver Martinez at bedside Vitals are stable blood pressure 122/78 pulse ox 98 on room air Mildly elevated WBCs 11.8, lactic acid within normal limits, CXR clear Follow up with procalcitonin CT head: no acute intracranial changes noted. Encephalomalacia in the right frontal and temporal lobes. CTA head and neck majority of the right anterior cerebral artery not visualized, suspected chronic occlusion given extensive frontal lobe encephalomalacia. Bilateral ICA and left MANA patent. Mild stenosis of the left MCA and bilateral posterior cerebral artery segments. Tele neuro consulted, appreciate recommendations Recommended MRI of the brain with and without gadolinium as well as EEG Continue aspirin 81 mg, atorvastatin 40 p.o. daily Continue IV fluid resuscitation normal saline at 75 mL/hour Follow up with UA UTox, procalcitonin, CT chest Possible aspiration pneumonia Concern for Dysphagia Patient is a apparently coughing and making gurgling sounds at the snf, there was a concern for aspiration Empiric antibiotics covering g negatives and anaerobes, ceftriaxone 1 g daily and Flagyl 500 b.i.d. (day one) Incentive spirometer q.1h, Steroids methylprednisolone 40 IV daily, normal saline at 75 mL/hour During previous admission speech has evaluated him and they were talking about a PEG tube to be placed, but looks like the patient eventually did tolerate a diet ST eval and treat, NPO until passes bedside swallow NPO except seizure medications, crush the medications and give them with applesauce If he fails bedside swallow and continues to aspirate, PEG tube would be reasonable option for him Strict aspiration precautions to be maintained Seizure disorder Hypothyroid Hyperlipidemia Bipolar disorder Developmentally delayed History of GBM status post resection almost 15 years ago Awaiting med rec During previous admission he was discharged on the following medications Aspirin 81 mg p.o. daily Protonix 40 p.o. daily Vimpat 100 p.o. b.i.d. Keppra 1500 p.o. b.i.d. Albuterol q.4 PRN Aripiprazole 20 mg p.r.n. HS Atorvastatin 20 p.o. daily Citalopram hydrobromide 20 p.o. daily Olanzapine five p.o. HS Depakote and bupropion were discontinued and the dose of Keppra was changed to 1500 p.o. b.i.d. Code Status: Full code DVT prophylaxis: Lovenox Analgesia/sedation: None Line/tube: PIV GI prophylaxis: Protonix Nutrition: NPO until passes bedside swallow Prognosis: Guarded Disposition: Continue medical management. Follow up with MRI head, EEG, CT chest, ST eval and treat. Kaci Schaefer MD. IM Resident PGY-3 Date of Service: May 17, 2025 Billing Provider: CHASE COOL MD, ELIZABETH, RES May 17, 2025 17:18
[2025-05-17 18:00] VITALS: BP 130/77; PULSE 81; RESP 15; TEMP 97.9; O2SAT 97
[2025-05-17] MEDS: normal saline 1000ml 1,000 ML IV SCH (18:50)
[2025-05-17] MEDS: metroNIDAZOLE-Flagyl 500mg/NS 100 ML IV SCH (18:51)
[2025-05-17] MEDS: CefTRIAXone/D5W-Rocephin 1gm 50 ML IV SCH (18:51)
[2025-05-17 19:32] VITALS: PULSE 84; RESP 18; O2SAT 94
[2025-05-17] MEDS: K and/or MAG REPLACEMENT MC SCH (20:00)
[2025-05-17] MEDS ORDERED: LACOSAMIDE 50 MG TABLET PO SCH (20:00)
[2025-05-17] MEDS: methylPREDNISolone sod succ/PF 40mg inj. IV SCH (20:56)
[2025-05-17 22:00] VITALS: BP 151/73; PULSE 80; RESP 16; TEMP 97.2; O2SAT 95
[2025-05-17] MEDS: LACOSAMIDE 200mg/20ml inj. 100 MG in normal saline 100ml IV soln 100 ML IV SCH (22:28)
[2025-05-17] MEDS: levetiracetam inj 750 MG in normal saline 100ml IV soln 100 ML IV SCH (22:28)
[2025-05-18] VITALS (7 sets, daily range): BP systolic 110–151; BP diastolic 64–92; PULSE 63–80; RESP 15–20; TEMP 97–98.5; O2SAT 90–97
[2025-05-18 04:58] LABS: MEAN PLATELET VOLUME 7.5 FL (7.4-10.4); RED CELL DISTRIBUTION WIDTH 15.1 % (11.5-14.5)
[2025-05-18 05:10] LABS: INR 1.2 INR
[2025-05-18 05:24] LABS: CHOL/HDL RATIO 8.8 (0.00-4.99); CREATININE 0.66 MG/DL (0.60-1.10); LDL CHOLESTEROL 97 MG/DL (50-100); PHOSPHORUS 3.4 MG/DL (2.3-4.5); TOTAL CARBON DIOXIDE 29.1 MMOL/L (24-32); eCRCL 135 ML/MIN; eGFR > 90 ML/MIN
[2025-05-18] MEDS: aspirin 81mg, enteric-coated 1 TAB TABLET.DR PO SCH (06:27)
[2025-05-18] MEDS: enoxaparin 40mg/0.4ml syringe SUBCUT SCH (08:47)
--- NOTE | 2025-05-18 15:39 | PROGRESS NOTE- Residence ---
Progress Note - Resident Providers to CC Resident Creating Document: SAYDA AC RES CC: CHASE COOL MD ~ Antibiotic Timeout Antibiotic Ordered?: Yes Subjective Patient was seen and examined at his bedside, patient is developmentally delayed unsure about his baseline mentation. Patient is not responsive to my commands and is not oriented Objective Vital Signs Date Time Temp Pulse Resp B/P (MAP) Pulse Ox O2 Delivery O2 Flow Rate FiO2 05/18/25 10:00 97.6 63 16 110/84 (93) 94 Room Air 05/18/25 07:57 0 21 Result Diagram: 05/18/25 0440 05/18/250 General: Awake and alert x 0 HEENT: Conjunctive are pink, sclerae clear, no icterus, pupil is equal in both sides, reactive to light, no ear discharge, no pharyngeal erythema or an edema. Mouth is poorly kept, and dry. Neck: Supple, no JVD, no lymphadenopathy and thyromegaly. Chest: Unlabored. Coarse breath sounds bilaterally. 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 Musculoskeletal: Unable to determine gait. No joint swelling, deformity or tenderness, decreased range of motion and strength 2/5 in all extremities. 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 Unable to do a complete neuro exam as the patient is not cooperative and does not follow commands. Decreased strength in bilateral upper and lower extremities. Skin: Warm and Dry. Coagulation Studies Laboratory Tests Test 05/17/25 08:53 05/18/25 04:40 Activated Partial Thromboplast Time 30 SECONDS (22-32) Prothrombin Time 11.9 SECONDS (9.0-12.0) INR International Normalized Ratio 1.2 INR Coagulation Comments Assessment Assessment 49-year-old male who is developmentally delayed with history of seizures, bipolar disorder, GBM status post resection, asthma, hypothyroid, hyperlipidemia was brought to the ED by caregiver Martinez for concern of altered level of consciousness. Plan Plan Altered level of consciousness Metabolic encephalopathy Unknown baseline mentation Patient is apparently not at baseline per caregiver Martinez since the last few weeks Patient's vitals are stable, patient had mild elevation of WBCs 11.8 yesterday but it came down to seven today, chest x-ray is clear, procal 0.05 CT head: no acute intracranial changes noted. Encephalomalacia in the right frontal and temporal lobes. CTA head and neck majority of the right anterior cerebral artery not visualized, suspected chronic occlusion given extensive frontal lobe encephalomalacia. Bilateral ICA and left MANA patent. Mild stenosis of the left MCA and bilateral posterior cerebral artery segments. Patient's last MRI done on 04/09/2025 No acute cerebrovascular ischemia. Right frontotemporal encephalomalacia. Moderate chronic microvascular ischemic changes. Plan: -Continue aspirin 81 mg, atorvastatin 40 p.o. daily -Continue IV fluid resuscitation normal saline at 75 mL/hour Possible aspiration pneumonia Concern for Dysphagia Patient is a apparently coughing and making gurgling sounds at the snf, there was a concern for aspiration During previous admission speech has evaluated him and they were talking about a PEG tube to be placed, but looks like the patient eventually did tolerate a diet Plan -ST eval and treat, NPO until passes bedside swallow NPO except seizure medications, crush the medications and give them with applesauce If he fails bedside swallow and continues to aspirate, PEG tube would be reasonable option for him Strict aspiration precautions to be maintained Empiric antibiotics covering g negatives and anaerobes, ceftriaxone 1 g daily and Flagyl 500 b.i.d. (day 2) Incentive spirometer q.1h, Steroids methylprednisolone 40 IV daily, normal saline at 75 mL/hour Seizure disorder -initiated lacosamide and levetiracetam IV form Hypothyroid Hyperlipidemia Bipolar disorder Developmentally delayed History of GBM status post resection almost 15 years ago Awaiting [facility] During previous admission he was discharged on the following medications Aspirin 81 mg p.o. daily Protonix 40 p.o. daily Vimpat 100 p.o. b.i.d. Keppra 1500 p.o. b.i.d. Albuterol q.4 PRN Aripiprazole 20 mg p.r.n. HS Atorvastatin 20 p.o. daily Citalopram hydrobromide 20 p.o. daily Olanzapine five p.o. HS Depakote and bupropion were discontinued and the dose of Keppra was changed to 1500 p.o. b.i.d. Code Status: Full code DVT prophylaxis: Lovenox Analgesia/sedation: None Line/tube: PIV GI prophylaxis: Protonix Nutrition: NPO until passes bedside swallow Prognosis: Guarded Disposition: Continue medical management. Awaiting med rec pending, unable to reach patient's caregiver Martinez requested patient's nurse to contact pharmacy regarding med rec reconciliation. Sayda Ac MD. IM Resident PGY-1 PGY2 resident attestation: I have seen and evaluated the patient independently. I have reviewed the history, physical examination, laboratory and imaging findings and the assessment and plan documented by the PGY1 resident. I agree with the findings and plan as documented with the following additions/modifications: Altered level of consciousness Developmental delay Patient failed swallow evaluation. Monitor for hypoglycemia, consider changing fluids to D5 till patient is able to swallow again. Current blood sugars are in the target ranges. Currently antiseizure medications were switched to IV in the view of NPO status. Last known normal is few weeks ago. Disposition: Touch base with caregiver to clarify goals of care. Consider nutrition support with NG-tube (short-term) versus PEG tube (long-term). Possible hospice referral versus palliative care referral if no improvement in mentation despite ruling out other acute pathologies. Luda Rea MD PGY2 internal medicine resident Date of Service: May 18, 2025 Billing Provider: CHASE COOL MD, JAHNAVI, RES May 18, 2025 15:39 LUDA JACKMAN, RES May 18, 2025 19:00
[2025-05-18] MEDS ORDERED: ASPI-1397 PO (16:22)
[2025-05-18] MEDS ORDERED: LEVE500T (16:22)
[2025-05-18] MEDS ORDERED: LACO50TA16 PO (16:22)
[2025-05-18] MEDS ORDERED: PANT-47 PO (16:22)
[2025-05-18] MEDS ORDERED: OLAN5TAB75 PO (16:22)
[2025-05-18] MEDS ORDERED: PSYL575P22 PO (16:22)
[2025-05-18] MEDS ORDERED: ACET-2119 PO (16:22)
[2025-05-18] MEDS ORDERED: LOPE2CAP PO (16:22)
[2025-05-18] MEDS ORDERED: CETI10CA PO (16:22)
[2025-05-18] MEDS ORDERED: OMEG-166 PO (16:22)
[2025-05-18] MEDS ORDERED: DIVA500T9 PO (16:22)
[2025-05-18] MEDS ORDERED: ROSU5TAB51 PO (16:22)
[2025-05-18] MEDS ORDERED: CARB15DR91 RIGHT EAR (16:22)
[2025-05-18] MEDS ORDERED: DIVA500T4 PO (17:57)
[2025-05-18] MEDS ORDERED: LEVE250T PO (18:30)
--- NOTE | 2025-05-18 22:04 | [facility] CONSULT REPORT ---
[facility] Procedure Note [facility] Procedure Note Consult [facility] Note # Demographics Type of EEG Read: - Routine EEG - video Patient Location: Inpatient First Name: Carlos Last Name: Gilbert Date of : 1975 Age: 49 Gender: Male Facility: [facility] Time of Initial Page (): 05/18/2025 10:53 First Contact with Site (): 05/18/2025 10:53 # EEG Interpretation Start Time of EEG Read (): 05/18/2025 11:16 Stop Time of EEG Read (): 05/18/2025 11:36 Duration: 0h 20m Technical Details: - This study was recorded using the Libretto EEG software Indication: - altered mental status # Description Photic Stimulation: NOT Performed Hyperventilation: NOT performed Phases Captured: - drowsy Symmetry: symmetric Posterior Dominant Rhythm: absent Predominant Frequencies: - theta (4-7 Hz) - continuous (>90%) Amplitude: normal Reactivity: yes Variability: yes Continuity: continuous # Abnormalities Epileptiform Abnormalities: - NOT present Focal Slowing: no Seizure: - NOT present # Impression Impression: abnormal Diffuse Slowing # Clinical Correlation Clinical Correlation: Diffuse slowing is non-specific and may be seen in the setting of diffuse cerebral dysfunction; such as toxic/metabolic/infectious encephalopathy or heavily sedating medication use. # Demographics First Name: Carlos Last Name: Gilbert Facility: [facility] Neuro Consult Order placed for: Yes ROXANA PELLETIER MD May 18, 2025 22:04
[2025-05-19] VITALS (8 sets, daily range): BP systolic 111–154; BP diastolic 68–114; PULSE 51–77; RESP 12–16; TEMP 97.3–97.6; O2SAT 90–99
[2025-05-19 05:43] LABS: MEAN PLATELET VOLUME 7.6 FL (7.4-10.4); RED CELL DISTRIBUTION WIDTH 15.0 % (11.5-14.5)
[2025-05-19 05:50] LABS: CREATININE 0.56 MG/DL (0.60-1.10); PHOSPHORUS 2.1 MG/DL (2.3-4.5); TOTAL CARBON DIOXIDE 27.6 MMOL/L (24-32); eCRCL 160 ML/MIN; eGFR > 90 ML/MIN
[2025-05-19] MEDS ORDERED: pantoprazole 40mg Tablet.DR PO SCH (07:30)
--- NOTE | 2025-05-19 14:24 | PROGRESS NOTE- Residence ---
Progress Note - Resident Providers to CC Resident Creating Document: SAYDA AC RES CC: CHASE COOL MD ~ Antibiotic Timeout Antibiotic Ordered?: Yes Subjective Patient was seen and examined at his bedside. Patient is developmentally delayed,unsure about his baseline. No other acute changes compared to yesterday PGY 2 note: NG tube placed successfully today after multiple attempts. Nutrition recommendations: 1. Continuous TF via NG per MD using Jevity 1.2 at 70ml/hr goal; to provide 1680ml volume/day, 2016 kcals, 1356ml water, and 93g protein. 2. Additional water flush 100ml Q4H; monitor serum Na Objective Vital Signs Date Time Temp Pulse Resp B/P (MAP) Pulse Ox O2 Delivery O2 Flow Rate FiO2 05/19/25 11:00 97.3 51 16 154/114 (127) 90 Room Air 05/18/25 23:30 0 21 Result Diagram: 05/19/25 0457 05/19/25 0457 General: Awake and alert x 0 HEENT: Conjunctive are pink, sclerae clear, no icterus, pupil is equal in both sides, reactive to light, no ear discharge, no pharyngeal erythema or an edema. Mouth is poorly kept, and dry. Neck: Supple, no JVD, no lymphadenopathy and thyromegaly. Chest: Unlabored. Coarse breath sounds bilaterally. 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 Musculoskeletal: Unable to determine gait. No joint swelling, deformity or tenderness, decreased range of motion and strength 2/5 in all extremities. DRAW END HAND: No sensory abnormalities. Unable to do a complete neuro exam as the patient is not cooperative and does not follow commands. Decreased strength in bilateral upper and lower extremities. Skin: Warm and Dry. Coagulation Studies Laboratory Tests Test 05/17/25 08:53 05/18/25 04:40 Activated Partial Thromboplast Time 30 SECONDS (22-32) Prothrombin Time 11.9 SECONDS (9.0-12.0) INR International Normalized Ratio 1.2 INR Coagulation Comments Assessment Assessment 49-year-old male who is developmentally delayed with history of seizures, bipolar disorder, GBM status post resection, asthma, hypothyroid, hyperlipidemia was brought to the ED by caregiver Martinez for concern of altered level of consciousness. Plan Plan Altered level of consciousness Metabolic encephalopathy Unknown baseline mentation Patient's vitals are stable, patient had mild elevation of WBCs 11.8 yesterday but it came down to seven today, chest x-ray is clear, procal 0.05 CT head: no acute intracranial changes noted. Encephalomalacia in the right frontal and temporal lobes. CTA head and neck majority of the right anterior cerebral artery not visualized, suspected chronic occlusion given extensive frontal lobe encephalomalacia. Bilateral ICA and left MANA patent. Mild stenosis of the left MCA and bilateral posterior cerebral artery segments. Patient's last MRI done on 04/09/2025 No acute cerebrovascular ischemia. Right frontotemporal encephalomalacia. Moderate chronic microvascular ischemic changes. Patient's EEG was reviewed by tele neurologist and they interpreted it as: Diffuse slowing is non-specific and may be seen in the setting of diffuse cerebral dysfunction; such as toxic/metabolic/infectious encephalopathy or heavily sedating medication use. Patient's MRI still pending Ordered NG tube placement today but could not be placed as patient was extremely uncooperative, another trial for NG tube placement would be made this evening Plan -strict NPO till NG tube is placed Possible aspiration pneumonia Concern for Dysphagia Patient is a apparently coughing and making gurgling sounds at the residential, there was a concern for aspiration During previous admission speech has evaluated him and they were talking about a PEG tube to be placed, but looks like the patient eventually did tolerate a diet Patient failed his swallow test Plan -ST eval and treat, NPO except seizure medications, crush the medications and give them with applesauce If he fails bedside swallow and continues to aspirate, PEG tube would be reasonable option for him Strict aspiration precautions to be maintained Empiric antibiotics covering g negatives and anaerobes, ceftriaxone 1 g daily and Flagyl 500 b.i.d. (day 3) Incentive spirometer q.1h, Steroids methylprednisolone 40 IV daily, Patient's blood sugar was in the 90s today, changed patient's fluids to D5 Seizure disorder -continue lacosamide and levetiracetam IV Hypothyroid Hyperlipidemia Bipolar disorder Developmentally delayed History of GBM status post resection almost 15 years ago Code Status: Full code DVT prophylaxis: Lovenox Analgesia/sedation: None Line/tube: PIV GI prophylaxis: Protonix Nutrition: NPO until NG tube is placed Prognosis: Guarded Disposition: We contacted the patient's caregiver Martinez who let us know that the patient is non conserved, patient might require PEG tube placement considering multiple trials of NG tube. She told us that we would need to contact Elyse Tejeda who is the manager filter of the facility the patient is from and takes decisions regarding invasive procedures like PEG tube placement/surgeries. His contact number is [phone]. Sayda Ac MD. IM Resident PGY-1 PGY2 resident attestation: I have seen and evaluated the patient independently. I have reviewed the history, physical examination, laboratory and imaging findings and the assessment and plan documented by the PGY1 resident. I agree with the findings and plan as documented with the following additions/modifications: NG tube placed successfully today after multiple attempts. Nutrition recommendations: 1. Continuous TF via NG per MD using Jevity 1.2 at 70ml/hr goal; to provide 1680ml volume/day, 2016 kcals, 1356ml water, and 93g protein. 2. Additional water flush 100ml Q4H; monitor serum Na Luda Rea MD PGY 2 internal medicine resident Date of Service: May 19, 2025 Billing Provider: CHASE COOL MD, JAHNAVI, RES May 19, 2025 14:24 LUDA JACKMAN, RES May 19, 2025 17:32
[2025-05-19] MEDS ORDERED: dextrose 50%-water 50ml dispensing syringe IV PRN ×2 (14:40)
[2025-05-19] MEDS ORDERED: DEXTROSE 15 GM of carb/4 tabs (each vial/BOTTLE has 4 tablets) PO PRN ×2 (14:40)
[2025-05-19] MEDS ORDERED: glucagon, human recombinant 1mg kit SUBCUT PRN (14:40)
--- NOTE | 2025-05-19 14:53 | RADIOLOGY REPORT ---
CT Chest without intravenous contrast INDICATION: ASPIRATION TECHNIQUE: Multidetector spiral CT of the chest was performed from the lung apices to the upper abdomen. Axial, coronal and sagittal multiplanar reformats were performed. Radiation Dose : 1. Chest: CTDI volume is 15.9 mGy. Dose-length product is 502 mGy*cm The dose indicators for CT are the volume Computed Tomography (CT) Dose Index (CTDIvol) and the Dose Length Product (DLP), and are measured in units of mGy and mGy-cm, respectively. These indicators are not patient dose, but values generated from the CT scanner acquisition factors. The report includes radiation exposure data for exposures received during this examination. Comparison: CT CT HEAD on DOS: 05/17/25, DI CHEST,SINGLE VIEW on DOS: 05/17/25, CT CT HEAD on DOS: 05/04/25, DI CHEST,SINGLE VIEW on DOS: 04/15/25, DI CHEST,SINGLE VIEW on DOS: 04/14/25 Findings: Lower neck: Normal thyroid. Lungs: Left basilar subsegmental atelectasis. No focal consolidation. Heart/Vascular Structures: Cardiomegaly. Mild diffuse interlobular septal thickening. Lymph Nodes: No adenopathy. Pleura: No pleural effusion or significant pneumothorax. Musculoskeletal: No acute osseous abnormality. Soft tissues: Normal. Upper abdomen: Limited portions of the upper abdomen are unremarkable. IMPRESSION: Cardiomegaly with mild diffuse interlobular septal thickening. This may represent mild fluid overload. Radiation optimization: All CT scans at this facility use at least one of these dose optimization techniques: automated exposure control mA and/or kV adjustment per patient size (includes targeted exams where dose is matched to clinical indication) or iterative reconstruction.
[2025-05-19] MEDS: diazepam inj 5 MG/ML inj. IV ONE (16:44)
[2025-05-19] MEDS ORDERED: acetaminophen 325mg/10.15ml oral unit dose solution CORPAK PRN ×2 (17:39)
--- NOTE | 2025-05-19 17:40 | RADIOLOGY REPORT ---
EXAM: DI ABDOMEN,SINGLE VIEW(KUB) HISTORY: corpak placement COMPARISON: DI ABDOMEN,SINGLE VIEW(KUB) on DOS: 04/29/25 TECHNIQUE: Supine view of the abdomen FINDINGS/IMPRESSION: Nonobstructive bowel gas pattern noted. There is no evidence for pneumoperitoneum. No abnormal calcifications noted. Weighted to of the proximal stomach. Mild to moderate stool burden.
[2025-05-19] MEDS ORDERED: HYDROcodone/acetaminophen 7.5MG/325MG per 15ml UD CUP CORPAK PRN ×2 (17:41)
[2025-05-19] MEDS ORDERED: POTASSIUM CHLORIDE 20 MEQ/15 ML oral solution CORPAK PRN ×2 (17:43)
[2025-05-19] MEDS ORDERED: DEXTROSE 15 GM of carb/4 tabs (each vial/BOTTLE has 4 tablets) CORPAK PRN ×2 (17:55)
[2025-05-19] MEDS: OLANZapine 5mg rapidly disint. tablet CORPAK SCH (21:00)
[2025-05-20 05:28] LABS: MEAN PLATELET VOLUME 7.5 FL (7.4-10.4); RED CELL DISTRIBUTION WIDTH 14.8 % (11.5-14.5)
[2025-05-20 05:48] LABS: CREATININE 0.62 MG/DL (0.60-1.10); PHOSPHORUS 2.5 MG/DL (2.3-4.5); TOTAL CARBON DIOXIDE 28.2 MMOL/L (24-32); eCRCL 144 ML/MIN; eGFR > 90 ML/MIN
[2025-05-20 06:00] VITALS: BP 112/63; PULSE 56; RESP 14; TEMP 97.4; O2SAT 98
[2025-05-20] MEDS ORDERED: magnesium sulf-water 4G/100mL 100 ML IV PRN (07:45)
[2025-05-20 10:08] VITALS: PULSE 44; RESP 16; O2SAT 92
[2025-05-20 16:00] LABS: URINE AMPHETAMINE SCREEN NEGATIVE (Neg); URINE BARBITUATE SCREEN NEGATIVE (Neg); URINE BENZODIAZEPINES SCREEN NEGATIVE (Neg); URINE CANNABINOID SCREEN NEGATIVE (Neg); URINE COCAINE SCREEN NEGATIVE (Neg); URINE METHADONE SCREEN NEGATIVE (Neg); URINE OPIATE SCREEN NEGATIVE (Neg); URINE PHENCYCLIDINE SCREEN NEGATIVE (Neg)
[2025-05-20] MEDS: potassium Cl 40MEQ/1/2NS 520ml 520 ML IV PRN (17:13)
[2025-05-20 17:39] LABS: CREATININE 0.65 MG/DL (0.60-1.10); PHOSPHORUS 3.6 MG/DL (2.3-4.5); TOTAL CARBON DIOXIDE 29.7 MMOL/L (24-32); eCRCL 137 ML/MIN; eGFR > 90 ML/MIN
[2025-05-20 18:00] VITALS: BP 118/66; PULSE 63; RESP 18; TEMP 97.6; O2SAT 94
--- NOTE | 2025-05-20 18:35 | PROGRESS NOTE- Residence ---
Progress Note - Resident Providers to CC Resident Creating Document: SAYDA AC RES CC: CHASE COOL MD ~ Antibiotic Timeout Antibiotic Ordered?: No Subjective Patient was seen and examined at his bedside. Patient continues to be extremely drowsy,no difference in his baseline mentation since the time of admission. Initiated patient on PPN today. Objective Vital Signs Date Time Temp Pulse Resp B/P (MAP) Pulse Ox O2 Delivery O2 Flow Rate FiO2 05/20/25 10:08 44 16 92 Room Air* 0 21 05/20/25 06:00 97.4 112/63 (79) Result Diagram: 05/20/25 0448 05/20/25 1644 General: Awake and alert x 0 HEENT: Conjunctive are pink, sclerae clear, no icterus, pupil is equal in both sides, reactive to light, no ear discharge, no pharyngeal erythema or an edema. Mouth is poorly kept, and dry. Neck: Supple, no JVD, no lymphadenopathy and thyromegaly. Chest: Unlabored. Coarse breath sounds bilaterally. 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 Musculoskeletal: Unable to determine gait. No joint swelling, deformity or tenderness, decreased range of motion and strength 2/5 in all extremities. 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 Unable to do a complete neuro exam as the patient is not cooperative and does not follow commands. Skin: Warm and Dry. Coagulation Studies Laboratory Tests Test 05/17/25 08:53 05/18/25 04:40 Activated Partial Thromboplast Time 30 SECONDS (22-32) Prothrombin Time 11.9 SECONDS (9.0-12.0) INR International Normalized Ratio 1.2 INR Coagulation Comments Assessment Assessment 49-year-old male who is developmentally delayed with history of seizures, bipolar disorder, GBM status post resection, asthma, hypothyroid, hyperlipidemia was brought to the ED by caregiver Martinez for concern of altered level of consciousness. Plan Plan Altered level of consciousness, possibly due to worsening developmental delay Metabolic encephalopathy Unknown baseline mentation Patient's vitals are stable, WBC stable, protocol normal, ordered urine tox to rule out possible toxicity related cause of altered level of consciousness, Utox was negative Ammonia levels normal CTA head and neck majority of the right anterior cerebral artery not visualized, suspected chronic occlusion given extensive frontal lobe encephalomalacia. Bilateral ICA and left MANA patent. Mild stenosis of the left MCA and bilateral posterior cerebral artery segments. Patient's last MRI done on 04/09/2025 No acute cerebrovascular ischemia. Right frontotemporal encephalomalacia. Moderate chronic microvascular ischemic changes. Patient's EEG was reviewed by tele neurologist and they interpreted it as: Diffuse slowing is non-specific and may be seen in the setting of diffuse cerebral dysfunction; such as toxic/metabolic/infectious encephalopathy or heavily sedating medication use. Patient's MRI still pending Plan -Aspiration precautions in place Possible aspiration pneumonia Concern for dysphagia Patient failed his swallow test before Plan -ST eval and treat, pending -initiated the patient on PPN Nutrition recommendation: Continuous PPN per MD using 2:1 Clinimix E 4.25/5 at 90ml/hr goal w/ separate 100ml 20% ILE to run for 12 hours daily at 8.33ml/hr. To provide 2160ml volume/day, 92g AA, 108g DEX and 935 kcals. NPO except seizure medications, crush the medications and give them with applesauce If he fails bedside swallow and continues to aspirate, PEG tube would be reasonable option for him -Strict aspiration precautions to be maintained -Empiric antibiotics covering g negatives and anaerobes, ceftriaxone 1 g daily and Flagyl 500 b.i.d. (day 4) -Incentive spirometer q.1h, -Steroids methylprednisolone 40 IV daily Seizure disorder -continue lacosamide and levetiracetam IV Constipation Patient's abdominal x-ray showed [id number] stool burden Plan -Initiated the patient on q.12h bisacodyl suppository -continue to monitor patient's bowel movements Hypothyroid Hyperlipidemia Bipolar disorder Developmentally delayed History of GBM status post resection almost 15 years ago Code Status: Full code DVT prophylaxis: Lovenox Analgesia/sedation: None Line/tube: PIV GI prophylaxis: Protonix Nutrition: NPO till patient passes swallow test Prognosis: Guarded Disposition: We initiated the patient on PPN because patient pulled out his [place] yesterday. With respect to his discharge plan in the future, case management is working with patient's caregiver and his previous facility to figure out the best care of the patient post this discharge. Sayda Ac MD Internal medicine resident PGY2 resident attestation: I have seen and evaluated the patient independently. I have reviewed the history, physical examination, laboratory and imaging findings and the assessment and plan documented by the PGY1 resident. I agree with the findings and plan as documented with the following additions/modifications: Disposition: health informatics advisor are working on finding patient conservator status. Swallow evaluation is not done despite repeated reminders. Patient may need PEG tube in long-term, currently on PPN Luda Rea MD PGY 2 internal medicine resident Date of Service: May 20, 2025 Billing Provider: CHASE COOL MD, JAHNAVI, RES May 20, 2025 18:35 LUDA JACKMAN, RES May 20, 2025 20:27
[2025-05-20 20:02] VITALS: PULSE 60; RESP 16; O2SAT 100
[2025-05-20 22:00] VITALS: BP_SYST 124; BP_SYST 132; BP_DIAS 73; BP_DIAS 87; PULSE 65; PULSE 80; RESP 15; RESP 18; TEMP 97.4; TEMP 97.7; O2SAT 96; O2SAT 98
[2025-05-20] MEDS: FAT EMUL/SOY/MCT/OLIV/FISH OIL (SMOF) 100 ML IV SCH (22:56)
[2025-05-20] MEDS: MVI, adult No.4 with vit. K 10 ML, ZINC/COPPER/MANGANESE/SELENIUM 1 ML, chromic chlorid... IV SCH (22:57)
[2025-05-20] MEDS: bisacodyl 10mg suppository rectal RC SCH (23:09)
[2025-05-21 08:21] LABS: MEAN PLATELET VOLUME 7.3 FL (7.4-10.4); RED CELL DISTRIBUTION WIDTH 14.8 % (11.5-14.5)
[2025-05-21 08:42] VITALS: RESP 20
[2025-05-21 08:43] LABS: CREATININE 0.64 MG/DL (0.60-1.10); PHOSPHORUS 2.2 MG/DL (2.3-4.5); TOTAL CARBON DIOXIDE 28.6 MMOL/L (24-32); eCRCL 140 ML/MIN; eGFR > 90 ML/MIN
[2025-05-21 10:00] VITALS: BP 93/62; PULSE 50; RESP 16; TEMP 97.5; O2SAT 94
[2025-05-21] MEDS ORDERED: bisacodyl 10mg suppository rectal RC PRN (11:45)
--- NOTE | 2025-05-21 17:13 | PROGRESS NOTE- Residence ---
Progress Note - Resident Providers to CC Resident Creating Document: SAYDA AC RES CC: SHAUNA VAZQUEZ MD ~ Antibiotic Timeout Antibiotic Ordered?: No Subjective Patient was seen and examined at his bedside. Patient's mentation appears to be better today, alert and oriented x1. He was able to answer his name, however he continues to be drowsy. Apparently patient is awake throughout the night and sleeps in the morning. Nursing staff taking care of the patient told me that they have had small conversations of the patient since last night. We will continue patient's PPN on possibility of PEG tube in the future depending on patient's mentation in few days. Objective Vital Signs Date Time Temp Pulse Resp B/P (MAP) Pulse Ox O2 Delivery O2 Flow Rate FiO2 05/21/25 10:00 97.5 50 16 93/62 (72) 94 Room Air 05/20/25 20:02 0 21 Result Diagram: 05/21/25 0732 05/21/25 0732 General: Awake and alert x 1, patient has better mentation today was able to tell me his name HEENT: Conjunctive are pink, sclerae clear, no icterus, pupil is equal in both sides, reactive to light, no ear discharge, no pharyngeal erythema or an edema.. Neck: Supple, no JVD, no lymphadenopathy and thyromegaly. Chest: Unlabored. Coarse breath sounds bilaterally. 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 Musculoskeletal: Unable to determine gait. No joint swelling, deformity or tenderness, decreased range of motion and strength 2/5 in all extremities. FUNERAL DIRECTOR: No sensory abnormalities. Unable to do a complete neuro exam as the patient is not cooperative and does not follow commands. Skin: Warm and Dry. Coagulation Studies Laboratory Tests Test 05/17/25 08:53 05/18/25 04:40 Activated Partial Thromboplast Time 30 SECONDS (22-32) Prothrombin Time 11.9 SECONDS (9.0-12.0) INR International Normalized Ratio 1.2 INR Coagulation Comments Assessment Assessment 49-year-old male who is developmentally delayed with history of seizures, bipolar disorder, GBM status post resection, asthma, hypothyroid, hyperlipidemia was brought to the ED by caregiver Martinez for concern of altered level of consciousness. Plan Plan Altered level of consciousness, possibly due to worsening developmental delay Metabolic encephalopathy Consciousness and mentation better today Patient's vitals are stable, WBC stable, protocol normal, ordered urine tox to rule out possible toxicity related cause of altered level of consciousness, Utox was negative Ammonia levels normal, repeat procalcitonin was normal, repeat lactic acid was normal, CRP is mildly elevated CTA head and neck majority of the right anterior cerebral artery not visualized, suspected chronic occlusion given extensive frontal lobe encephalomalacia. Bilateral ICA and left MANA patent. Mild stenosis of the left MCA and bilateral posterior cerebral artery segments. Patient's last MRI done on 04/09/2025 No acute cerebrovascular ischemia. Right frontotemporal encephalomalacia. Moderate chronic microvascular ischemic changes. Patient's EEG was reviewed by tele neurologist and they interpreted it as: Diffuse slowing is non-specific and may be seen in the setting of diffuse cerebral dysfunction; such as toxic/metabolic/infectious encephalopathy or heavily sedating medication use. Patient's MRI still pending Plan -Aspiration precautions in place Possible aspiration pneumonia Concern for dysphagia Patient's failed his swallow test Plan Continue patient's PPN Nutrition recommendation: Continuous PPN per MD using 2:1 Clinimix E 4.25/5 at 90ml/hr goal w/ separate 100ml 20% ILE to run for 12 hours daily at 8.33ml/hr. To provide 2160ml volume/day, 92g AA, 108g DEX and 935 kcals. NPO except seizure medications, crush the medications and give them with applesauce -PEG tube would be reasonable option for him -Strict aspiration precautions to be maintained -patient complete his antibiotic course of ceftriaxone and metronidazole -Incentive spirometer q.1h, -Steroids methylprednisolone 40 IV daily Seizure disorder -continue lacosamide and levetiracetam IV Constipation Patient's abdominal x-ray showed [id number] stool burden Patient was initiated on suppository yesterday, he had two bowel movement today and passed stool Changed suppository to p.r.n. Hypothyroidism Hyperlipidemia Bipolar disorder Developmentally delayed History of GBM status post resection almost 15 years ago Code Status: Full code DVT prophylaxis: Lovenox Analgesia/sedation: None Line/tube: PIV GI prophylaxis: Protonix Nutrition: NPO, patient failed swallow test Prognosis: Guarded Disposition: Patient has failed his swallow test, we will continue his PPN. Patient might require PEG tube in the future. With respect to his discharge plan in the future, case management is working with patient's caregiver and his previous facility to figure out the best care of the patient post this discharge. Dr.Kristi up at patient's facility is aware of the patient's condition and is willing to sign concerned if PEG tube placement needed, information as relayed by nurse Mello. Dr. Mary Up [phone] and caregiver [phone] Sayda Ac MD PGY-1 Internal medicine resident Date of Service: May 21, 2025 Billing Provider: SHAUNA VAZQUEZ MD Common Visit Codes: [id number] INP/OBS CARE(HIGH) SAYDA AC, RES May 21, 2025 17:13 SHAUNA VAZQUEZ MD May 21, 2025 18:40
[2025-05-21 18:00] VITALS: BP 100/70; PULSE 51; RESP 16; TEMP 98.9; O2SAT 96
[2025-05-21 20:35] VITALS: PULSE 56; RESP 18; O2SAT 99
[2025-05-21 22:00] VITALS: BP 103/66; PULSE 54; RESP 18; TEMP 97.6; O2SAT 98
[2025-05-22 06:00] VITALS: BP 110/66; PULSE 45; RESP 17; TEMP 97.5; O2SAT 95
[2025-05-22 06:33] LABS: MEAN PLATELET VOLUME 7.4 FL (7.4-10.4); RED CELL DISTRIBUTION WIDTH 14.9 % (11.5-14.5)
[2025-05-22 07:05] LABS: CREATININE 0.63 MG/DL (0.60-1.10); PHOSPHORUS 3.2 MG/DL (2.3-4.5); TOTAL CARBON DIOXIDE 28.1 MMOL/L (24-32); eCRCL 142 ML/MIN; eGFR > 90 ML/MIN
[2025-05-22 10:00] VITALS: BP 110/69; PULSE 60; RESP 15; TEMP 98.6; O2SAT 99
[2025-05-22 11:40] VITALS: PULSE 53; RESP 16; O2SAT 93
--- NOTE | 2025-05-22 17:34 | DISCHARGE SUMMARY-Residence ---
Discharge Summary Providers to CC Resident Creating Document: NAIMA AC, MEDARDO CC: SHAUNA VAZQUEZ MD ~ Discharge Summary Admission Diagnosis: ALOC Hospital Course DATE OF ADMISSION: 05/17/2025 DATE OF DISCHARGE: 05/22/2025 Discharge Diagnosis\\Comment: Altered level of consciousness, possibly due to worsening developmental delay Metabolic encephalopathy Possible aspiration pneumonia Seizure disorder Constipation Hypothyroidism Hyperlipidemia Bipolar disorder Developmentally delayed History of GBM status post resection almost 15 years ago Operations\\Procedures: None Consultants: [facility] neurologists- Dr.Adam Amin and Dr.Gurjeet Garza Complications: None Condition on DC: Stable Continued Medications: Acetaminophen (Tylenol) 325 Mg Tablet 650 MG PO Q4H PRN for PAIN OR FEVER Aspirin (Aspirin EC) 81 Mg Tablet.dr 1 TAB PO DAILY Carbamide Peroxide (Debrox) 6.5 % Drops 5 DROP RIGHT EAR DAILY, #15 ML 0 Refills 5 DROPS IN THE RIGHT EAR CANAL DAILY ON THE FIRST 5 DAYS OF THE MONTH Cetirizine Hcl (Zyrtec) 10 Mg Capsule 1 CAP PO DAILY for allergy symptoms for 30 Days, #30 CAP 0 Refills Divalproex ER* (Depakote ER*) 500 Mg Tab.sr.24h 1 TAB PO QAM Divalproex Sodium (Depakote Er) 500 Mg Tab.sr.24h 2 TAB PO HS Lacosamide (Lacosamide) 50 Mg Tablet 100 MG PO BID Levetiracetam (Levetiracetam) 250 Mg Tablet 1500 MG PO BID, TAB Loperamide Hcl (Loperamide) 2 Mg Capsule 2 MG PO PRN PRN for LOOSE STOOL/DIARRHEA MDD 8 CAPS/24H, CAP TAKE 2 CAPS (4 MG) AFTER 1ST LOOSE STOOL THEN 1 CAP (2 MG) AFTER EACH SUBSEQUENT LOOSE STOOL (NMT 8 CAPS/24 HOURS) Olanzapine (Olanzapine) 5 Mg Tablet 1 TAB PO HS Mora-3/Dha/Epa/Fish Oil (Fish Oil 1,000 Mg Ec Softgel) 300 Mg-1,000 Mg Capsule.dr 1 CAP PO DAILY for 30 Days, #30 CAP 0 Refills Pantoprazole Sodium (PROTONIX tablet) 40 Mg Tablet.dr 40 MG PO BKF Psyllium Husk (with Sugar) (Metamucil Powder) 3.4 Gram/12 Gram Powder 1 PKT PO BID 1 PKT IN 8 OZ OF WATER AND DRINK BID Rosuvastatin Calcium (Rosuvastatin Calcium) 5 Mg Tablet 1 TAB PO DAILY Discharge Summary: HPI as per admitting physician: Patient is a poor historian and barely communicates, History gathered from caregiver Martinez at bedside, ED sign-out and previous medical records. 49-year-old male who is developmentally delayed with history of seizures, bipolar disorder, GBM status post resection, asthma, hypothyroid, hyperlipidemia was brought to the ED by caregiver Martinez for concern of altered level of consciousness. Since last Saturday patient has not been at his baseline, was downsloping. He was not walking, eating or drinking. He was admitted here and discharged on 05/09, since discharge he has been having "good and bad days". Some days he does walk to the bathroom and move around, but on other days he is not able to do his usual activity. Caregiver is also concerned that he is acting like he is unable to chew/eat. She also noticed some stiffness in the jaw. He has history of chronic tremors in the hands, but tremors has been worsening and now he has associated tapping of both upper extremities. The above symptoms associated with cough, gargling sound, and fever this morning 100.7 F. Denies chills, nausea, vomiting, diarrhea, constipation, chest pain, shortness of breath. He has been having incontinence of bowel and bladder on and off. The frequency of incontinence has increased since his previous discharge. During his last admission Vimpat was added to the antiseizure medications. Does not have any drug allergies. Does not smoke or drink alcohol. Denies recreational drug use. He was fully independent per caregiver, he started using a wheelchair since previous discharge. Discussed advanced care directives and he is a full code. Hospital course: 49-year old male patient developmentally delayed with a history of seizures, bipolar disorder GBM status post resection was brought to the ED by his caregiver Martinez due to concern for altered level of consciousness. Patient was dx with acute metabolic encephalopathy and appropriate workup was done, WBCs were stable profile was normal U tox was negative, ammonia levels were negative as well. EEG was reviewed by teleneurologist and was interpreted as diffuse slowing maybe in the setting of toxic/metabolic/infectious encephalopathy or heavily sedating medication use. CT head and neck reported suspected chronic occlusion given extensive frontal lobe encephalomalacia, no other acute findings were noted. Weaned the patient off all his sedative medications and continued only patient's home medication for seizure-lacosamide and levetiracetam. We also thought of with altered mentation leaning towards possible aspiration pneumonia, the patient was put on strict NPO as he was extremely drowsy initially and failed his bedside swallow test, we started PPN as per land measurer's recommendations. However after two days patient passed a swallow test by speech therapist, they recommended minced for the patient. Patient abdominal x-ray showed argv-ao-ycahtkyj stool burden, we initiated the patient was suppository which relieved his constipation. Patient was transferred back to his home facility from which he came from. Significant imaging Head and neck CTA 05/17/2025 1. No change from previous CT scan. No acute intracranial hemorrhage or edema 2. Encephalomalacia in the right frontal and temporal lobes as on previous study Chest CT 05/17/2025 Cardiomegaly with mild diffuse interlobular septal thickening. This may re present mild fluid overload. EE05/18/2025 Interpretation as per neurologist Clinical Correlation: Diffuse slowing is non-specific and may be seen in the setting of diffuse cerebral dysfunction; such as toxic/metabolic/infectious encephalopathy or heavily sedating medication use. Abdominal x-ray 05/19/2025 Nonobstructive bowel gas pattern noted. There is no evidence for pneumo peritoneum. No abnormal calcifications noted. Weighted to of the proximal stomach. Mild to moderate stool burden. Physical examination the time of discharge Patient's mentation at the time of discharge was much better compared to his previous days stay in the hospital General: Awake and alert x 3, significant change in patient's mentation, possible back to his previous mentation HEENT: Conjunctive are pink, sclerae clear, no icterus, pupil is equal in both sides, reactive to light, no ear discharge, no pharyngeal erythema or an edema.. Neck: Supple, no JVD, no lymphadenopathy and thyromegaly. Chest: Unlabored. Coarse breath sounds bilaterally. 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 Musculoskeletal: Unable to determine gait. No joint swelling, deformity or tenderness, decreased range of motion and strength 2/5 in all extremities. 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 Motor strength in upper and lower extremities 2-3/5, could not perform other nervous systemic examination as patient is developmentally delayed Skin: Warm and Dry. Vital Signs Date Time Temp Pulse Resp B/P (MAP) Pulse Ox O2 Delivery O2 Flow Rate FiO2 05/22/25 11:40 53 16 93 Room Air* 0 21 05/22/25 10:00 98.6 110/69 (83) Laboratory Tests Test 05/20/25 21:05 05/21/25 02:29 05/21/25 06:55 05/21/25 07:32 Glucometer 103 mg/dl 87 mg/dl 85 mg/dl White Blood Count 9.4 X10'3 Red Blood Count 4.67 X10'6 Hemoglobin 13.9 g/dl Hematocrit 40.3 % Mean Corpuscular Volume 86.3 FL Mean Corpuscular Hemoglobin 29.8 PG Mean Corpuscular Hemoglobin Concent 34.6 g/dL Red Cell Distribution Width 14.8 % Platelet Count 392 X10'3 Mean Platelet Volume 7.3 FL Neutrophils (%) (Auto) 60.4 % Lymphocytes (%) (Auto) 26.2 % Monocytes (%) (Auto) 10.7 % Eosinophils (%) (Auto) 1.3 % Basophils (%) (Auto) 1.4 % Neutrophils # (Auto) 5.7 X10'3 Lymphocytes # (Auto) 2.5 X10'3 Monocytes # (Auto) 1.0 X10'3 Eosinophils # (Auto) 0.1 X10'3 Basophils # (Auto) 0.1 X10'3 CBC Comment Sodium Level 143 MMOL/L Potassium Level 3.2 MMOL/L Chloride Level 107 MMOL/L Carbon Dioxide Level 28.6 MMOL/L Anion Gap 7 Blood Urea Nitrogen 15 MG/DL Creatinine 0.64 MG/DL Estimated GFR/1.73 m2 > 90 ML/MIN BUN/Creatinine Ratio 23.4 Glucose Level 88 MG/DL Calcium Level 8.5 MG/DL Phosphorus Level 2.2 MG/DL Magnesium Level 1.7 MG/DL Total Bilirubin 0.3 MG/DL Aspartate Amino Transf (AST/SGOT) 18 U/L Alanine Aminotransferase (ALT/SGPT) 24 U/L Alkaline Phosphatase 71 IU/L Total Protein 6.5 G/DL Albumin 3.0 G/DL Globulin 3.5 G/DL Albumin/Globulin Ratio 0.9 Chemistry Comments Test 05/21/25 12:08 05/21/25 12:27 05/21/25 14:30 05/21/25 21:36 Glucometer 137 mg/dl 156 mg/dl 89 mg/dl Erythrocyte Sedimentation Rate 7 MM/HR Lactic Acid Level 0.7 MMOL/L C-Reactive Protein 0.87 MG/DL Test 05/22/25 03:58 05/22/25 05:09 05/22/25 08:12 05/22/25 14:46 Glucometer 94 mg/dl 83 mg/dl 158 mg/dl White Blood Count 12.2 X10'3 Red Blood Count 4.87 X10'6 Hemoglobin 14.5 g/dl Hematocrit 42.2 % Mean Corpuscular Volume 86.6 FL Mean Corpuscular Hemoglobin 29.8 PG Mean Corpuscular Hemoglobin Concent 34.4 g/dL Red Cell Distribution Width 14.9 % Platelet Count 400 X10'3 Mean Platelet Volume 7.4 FL Neutrophils (%) (Auto) 59.3 % Lymphocytes (%) (Auto) 29.8 % Monocytes (%) (Auto) 8.9 % Eosinophils (%) (Auto) 1.3 % Basophils (%) (Auto) 0.7 % Neutrophils # (Auto) 7.2 X10'3 Lymphocytes # (Auto) 3.6 X10'3 Monocytes # (Auto) 1.1 X10'3 Eosinophils # (Auto) 0.2 X10'3 Basophils # (Auto) 0.1 X10'3 CBC Comment Sodium Level 143 MMOL/L Potassium Level 3.9 MMOL/L Chloride Level 107 MMOL/L Carbon Dioxide Level 28.1 MMOL/L Anion Gap 8 Blood Urea Nitrogen 18 MG/DL Creatinine 0.63 MG/DL Estimated GFR/1.73 m2 > 90 ML/MIN BUN/Creatinine Ratio 28.6 Glucose Level 88 MG/DL Calcium Level 8.6 MG/DL Phosphorus Level 3.2 MG/DL Magnesium Level 2.0 MG/DL Total Bilirubin 0.3 MG/DL Aspartate Amino Transf (AST/SGOT) 25 U/L Alanine Aminotransferase (ALT/SGPT) 33 U/L Alkaline Phosphatase 70 IU/L Total Protein 6.4 G/DL Albumin 3.0 G/DL Globulin 3.4 G/DL Albumin/Globulin Ratio 0.9 Chemistry Comments Discharge instructions PATIENT NEEDS FOLLOW-UP WITH PRIMARY CARE PHYSICIAN AFTER HOSPITAL DISCHARGE DISCUSS ALL HIS MEDICATIONS THEM. PLEASE PROVIDE FALL PRECAUTIONS DOCUMENT. Please call 911 return back to ED in case of shortness of breath,or decrease in mentation Continue with a necture thick / Minced Moist diet. *Problems/Diagnosis: (1) Altered mental status Status: Acute (2) Encephalopathy Status: Acute Total Time Spent on D/C: Up to 30 Minutes Date of Service: May 22, 2025 Billing Provider: SHAUNA VAZQUEZ MD Common Visit Codes: [id number] DISCH DAY >30min NAIMA AC, RES May 22, 2025 17:20 SHAUNA VAZQUEZ MD May 23, 2025 15:42
== END 2025-05-22 15:00 | disposition home health service (06) | DRG 52 ==
LOC: ER 07:57 → ED HOLD 15:19 → ORTHO 4S 16:45
PROVIDERS: ADMIT Family Medicine; ATTEND Family Medicine
PROC: B3251ZZ Computerized Tomography (CT Scan) of Bilateral Common Carotid Arteries using Low Osmolar Contrast (ICD-10-PCS; 2025-05-17)
PROC: B32G1ZZ Computerized Tomography (CT Scan) of Bilateral Vertebral Arteries using Low Osmolar Contrast (ICD-10-PCS; 2025-05-17)
PROC: B32R1ZZ Computerized Tomography (CT Scan) of Intracranial Arteries using Low Osmolar Contrast (ICD-10-PCS; 2025-05-17)
PROC: B3281ZZ Computerized Tomography (CT Scan) of Bilateral Internal Carotid Arteries using Low Osmolar Contrast (ICD-10-PCS; 2025-05-17)
PROC: 4A00X4Z Measurement of Central Nervous Electrical Activity, External Approach (ICD-10-PCS; principal; 2025-05-18)
DX: G93.41 Metabolic encephalopathy (principal); J69.0 Pneumonitis due to inhalation of food and vomit; F41.9 Anxiety disorder, unspecified; R62.59 Other lack of expected normal physiological development in childhood; G40.909 Epilepsy, unspecified, not intractable, without status epilepticus; K59.09 Other constipation; E78.5 Hyperlipidemia, unspecified; E03.9 Hypothyroidism, unspecified; F31.9 Bipolar disorder, unspecified; Z79.82 Long term (current) use of aspirin; Z79.899 Other long term (current) drug therapy
CPT/HCPCS: 36415; 70450; 70496; 70498; 71045; 71250; 74018; 80048; 80053; 80061; 80305; 81001; 82140; 82550; 82553; 82948; 83036; 83605; 83735; 84100; 84134; 84145; 84478; 84484; 85025; 85610; 85651; 85730; 86140; 86885; 86900; 86901; 87040; 87081; 92508; 92616; 93005; 94760; 95816; 96365; 97110; 97161; 99285; A4615; A6590; C1758; C9254; G0378; J0696; J1650; J1953; J2470; J2919; J3360; J3480; J3490; J7030; J7042; J7070; Q9967